=== PATIENT | male | born 1965 | race Caucasian/White ===

== ENCOUNTER 2017-07-03 23:55 | Inpatient (IN) ==
[2017-07-04] MEDS ORDERED: Tdap (Boostrix) Vaccine 0.5 ML SYRINGE IM ONE (00:03)
[2017-07-04] MEDS ORDERED: Cefepime HCl 2,000 MG in Water for inj. (sterile) 20 ML 20 ML IVP ONE (00:18)
[2017-07-04] MEDS ORDERED: 0.9 % Sodium Chloride 1,000 ML IVC SCH (00:30)
[2017-07-04] MEDS ORDERED: *HR* Etomidate 20 MG/10 ML AMPUL IVP ONE ×2 (00:35→10:16)
[2017-07-04] MEDS ORDERED: *HR* Rocuronium Bromide 50 MG/5 ML VIAL IVP ONE (00:35)
[2017-07-04 00:46] LABS: Basophils % 0.2 %; Eosinophils # 0.3 K/mcL (0.0-0.6); Eosinophils % 2.1 %; Hematocrit 36.8 % (37.5-50.1); Hemoglobin 12.1 g/dL (12.9-16.9); Immature Granulocytes % 0.4 % (0-4); Lymphocytes # 1.5 K/mcL (0.6-4.6); Lymphocytes % 11.9 %; Mean Corpuscular HGB Conc 32.9 g/dL (31.6-35.5); Mean Corpuscular Hemoglobin 28.3 pg (28.0-33.3); Mean Platelet Volume 10.4 fL (9.4-12.4); Monocytes # 0.9 K/mcL (0.0-1.3); Monocytes % 7.5 %; Neutrophils # 9.8 K/mcL (1.6-8.9); Platelet Count 207 K/mcL (140-400); Red Blood Count 4.28 M/mcL (4.19-5.50); Red Cell Distribution Width 14.3 % (11.5-14.5); Segmented Neutrophils % 77.9 %
[2017-07-04] MEDS ORDERED: Propofol 500 MG/50 ML INFUS..BTL IVC SCH (01:15)
--- NOTE | 2017-07-04 01:51 | Emergency Department Note ---
Disposition Clinical Impression: Opiate or related narcotic overdose Qualifiers: Encounter type: initial encounter Injury intent: accidental or unintentional Qualified Code(s): T40.601A - Poisoning by unspecified narcotics, accidental ( unintentional), initial encounter Altered mental status Qualifiers: Altered mental status type: coma Coma depth: unspecified coma depth Qualified Code(s): R40.20 - Unspecified coma Disposition: Admitted As Inpatient Condition: Critical General Adult HPI - General Chief complaint: ED Overdose Stated complaint: Overdose Time Seen by Provider: 07/04/17 00:00 Source: patient, EMS Mode of arrival: EMS Limitations: no limitations Nursing Notes Reviewed: Yes Vital Signs Reviewed: Yes - History of Present Illness HPI Narrative: This is just a procedure note for full history and physical please refer to Dr. Golden's note. This is a 51-year-old male who was seen earlier in the emergency department for suspected opiate overdose and was given Narcan. He is worked up for some excoriated lesions on his head as well and given antibiotics. Ultimately this evening he was found minimally responsive by EMS. He actually improved on the way to the hospital and on arrival he was responding and answering questions. His hemodynamics were stable. Shortly after his arrival he became unresponsive. His blood glucose was checked and was normal. His hemodynamics remained stable. He had desaturations with oxygen levels in the 70s. He required oxygen placement by nonrebreather mask. Ultimately he received 6 mg of Narcan and did not have any appreciable response. He was unresponsive with a GCS of 3. He was emergently intubated for airway protection and hypoxia. Pupils are 2 mm and reactive there are multiple excoriated lesions on the scalp with soft tissue swelling Trachea midline Abdomen is soft nontender Lungs are clear but diminished bilaterally Heart rate is tachycardic but regular Extremities are perfused with some excoriated lesions Patient is unresponsive not following commands Medical decision making This is a male patient who had decompensation with hypoxic respiratory failure requiring emergent intubation. He was given broad-spectrum antibiotics. I did consider lumbar puncture however the patient has multiple previous spinal surgeries and I think this would be better served by interventional radiology. He was started on propofol sedation but ultimately had some ensuing hypotension. He was fluid responsive. Poison control was contacted and has no further recommendations they will be following along. He did not respond to Narcan. Plan to admit to the intensive care unit for ventilatory management and further resuscitation. I spent greater than 70 minutes of critical care time on this critically ill patient suffering from hypoxic respiratory failure requiring intubation. This was excluding billable procedures. Pain Scale: 0 - Related Data Previous Rx's Medication Instructions Recorded Gabapentin [Neurontin] 800 mg PO BID #20 tablet 01/14/15 Hydrocodone/Acetaminophen [[place] 1 tab PO Q6H PRN #12 tab 03/28/15 5-325 Tablet] Tamsulosin [Flomax] 0.4 mg PO DAILY #5 capsule 03/28/15 Clindamycin [Cleocin] 300 mg PO BID #20 capsule 12/06/15 OxyCODONE/APAP 5/325 [Percocet 1 each PO Q8HR PRN #6 tablet 12/06/15 5/325 MG] OxyCODONE/APAP 5/325 [Percocet 2 each PO Q6HR PRN #15 tablet 01/15/16 5/325 MG] Gabapentin [Neurontin] 600 mg PO 1-2XD PRN #30 tablet 01/17/16 Sulfamethoxazole/Trimeth DS 1 each PO BID #28 tablet 04/03/16 [Bactrim DS] Clindamycin [Cleocin] 150 mg PO Q6HR 10 Days capsule 06/13/16 Ondansetron HCl [Zofran] 4 mg PO Q8HR PRN #15 tablet 06/13/16 Cephalexin [Keflex] 750 mg PO BID #20 capsule 08/18/16 Clindamycin HCl 300 mg PO BID #14 capsule 08/18/16 Mupirocin [Bactroban Oint] 22 appl TP BID #1 tube 08/18/16 Cephalexin [Keflex] 500 mg PO BID #20 capsule 07/03/17 Sulfamethoxazole/Trimeth DS 1 each PO BID #20 tablet 07/03/17 [Bactrim DS] Allergies Allergy/AdvReac Type Severity Reaction Status Date / Time Cyclobenzaprine Allergy Hives Verified 08/18/16 01:48 [From Flexeril] hydrocodone [From Vicodin] Allergy Hives Verified 08/18/16 01:48 ibuprofen [From Motrin] Allergy Hives Verified 08/18/16 01:48 ketorolac [From Toradol] Allergy Anaphylaxis Verified 08/18/16 01:48 NSAIDS (Non-Steroidal Allergy Anaphylaxis Verified 08/18/16 01:48 Anti-Inflamma Penicillins Allergy Rash Verified 08/18/16 01:48 tramadol Allergy Hives Verified 08/18/16 01:48 STEROIDS Allergy Flushing Uncoded 08/18/16 01:48 All systems ED: reviewed and negative except as stated. Past Medical History - Past Medical History Medical history: Reports: no medical history Surgical history: Reports: non-contributory, other Psychiatric history: Reports: anxiety, depression - Social History Smoking Status: Former smoker Smokeless Tobacco Status: No Alcohol use: Reports: none Drug use: Reports: none Physical Exam - General General appearance: appears intoxicated Course Vital Signs Temperature 98.8 F 07/04/17 00:07 Pulse Rate 92 07/04/17 00:07 Respiratory Rate 32 07/04/17 00:07 Blood Pressure 115/64 07/04/17 00:07 O2 Sat by Pulse Oximetry 92 07/04/17 00:07 Temperature 98.8 F 07/04/17 00:07 Pulse Rate 101 07/04/17 03:30 Respiratory Rate 16 07/04/17 03:30 Blood Pressure 138/61 07/04/17 03:30 O2 Sat by Pulse Oximetry 96 07/04/17 03:30 Oxygen Delivery Oxygen Delivery Ventilator Procedures - Intubation Time out performed: Yes sedative: Etomidate Mg Given: 20 paralytic: Rocuronium Mg Given: 70 Laryngoscope: fiber optic video scope ET Tube Size: 7.5 ET Tube Uncuffed: No Tube Secured Depth (cm): 24 Tube Secured Location: lips Tube Placement Confirmation: visualized tube passing through cords, equal breath sounds bilaterally, no breath sounds over epigastrium Patient Tolerated Procedure: well, no complications Intubation Complications: none Medical Decision Making - [facility] Narrative Medical decision making narrative: This is just a procedure note for full history and physical please refer to Dr. Golden's note - Lab Data Result diagrams: 07/04/17 00:32 07/04/17 02:24 Lab Results 07/04/17 07/04/17 07/04/17 Range/Units 00:32 00:46 02:00 WBC 12.6 H (4.3-11.1) K/mcL RBC 4.28 (4.19-5.50) M/mcL Hgb 12.1 L (12.9-16.9) g/dL Hct 36.8 L (37.5-50.1) % MCV 86.0 (83.0-100.0) fL MCH 28.3 (28.0-33.3) pg MCHC 32.9 (31.6-35.5) g/dL RDW 14.3 (11.5-14.5) % Plt Count 207 (140-400) K/mcL MPV 10.4 (9.4-12.4) fL Immature Gran % 0.4 (0-4) % Seg Neutrophils % 77.9 % Lymphocytes % 11.9 % Monocytes % 7.5 % Eosinophils % 2.1 % Basophils % 0.2 % Neutrophils # 9.8 H (1.6-8.9) K/mcL Lymphocytes # 1.5 (0.6-4.6) K/mcL Monocytes # 0.9 (0.0-1.3) K/mcL Eosinophils # 0.3 (0.0-0.6) K/mcL Basophils # 0.0 (0.0-0.2) K/mcL Sodium (136-145) mEq/L Potassium (3.5-5.1) mEq/L Chloride (98-107) mEq/L Carbon Dioxide (23-29) mEq/L BUN (6-20) mg/dL Creatinine (0.70-1.30) mg/dL Est GFR ( Amer) (> 60) Est GFR (Non-Af Amer) (> 60) BUN/Creatinine Ratio (6-26) Glucose (70-105) mg/dL Calculated Osmolality (280-300) Lactic Acid (0.5-2.2) mmol/L Calcium (8.6-10.3) mg/dL Total Bilirubin (0.3-1.0) mg/dL AST (13-39) Units/L ALT (7-52) Units/L Alkaline Phosphatase (34-104) Units/L Ammonia (16-53) mcmol/L Serum Total Protein (6.4-8.9) g/dL Albumin (3.5-5.7) g/dL Globulin (2.4-3.5) g/dL Albumin/Globulin Ratio (1.1-2.2) TSH (0.340-5.600) mcIU/mL Urine Color Yellow (Yellow) Urine Clarity Clear (Clear) Urine pH 5.5 (5.0-8.0) pH Units Ur Specific [place] > 1.030 H (1.010-1.025) Urine Protein 30 H (Neg-Trace) mg/dL Urine Glucose (UA) Normal (Normal) mg/dL Urine Ketones Negative (Negative) mg/dL Urine Blood Trace H (Negative) Urine Nitrite Negative (Negative) Urine Bilirubin Negative (Negative) Urine Urobilinogen Normal (Normal) mg/dL Ur Leukocyte Esterase Negative (Negative) Urine Microscopic RBC 0-3 (0-3) per hpf Urine Microscopic WBC 3-5 H (0-3) per hpf Ur Squamous Epith Cells Many H (None-Few) per lpf Urine Bacteria None Seen (None-Few) per hpf Hyaline Casts Few (None-Few) per lpf Granular Casts Few H (None Seen) per lpf Ur Culture Indicated? NO (NO) Urine Opiates Screen (Ajgzlm=629) ng/mL Ur Barbiturates Screen (Ognhbc=029) ng/mL Ur Phencyclidine Scrn (Cutoff=25) ng/mL Ur Amphetamines Screen (Ofwigp=1595) ng/mL U Benzodiazepines Scrn (Vvethm=082) ng/mL Urine Cocaine Screen (Cutoff= 300) ng/mL U Marijuana (THC) Screen (Cutoff = 50) ng/mL Specimen Rejected Hemolyzed 07/04/17 07/04/17 07/04/17 Range/Units 02:00 02:24 02:24 WBC (4.3-11.1) K/mcL RBC (4.19-5.50) M/mcL Hgb (12.9-16.9) g/dL Hct (37.5-50.1) % MCV (83.0-100.0) fL MCH (28.0-33.3) pg MCHC (31.6-35.5) g/dL RDW (11.5-14.5) % Plt Count (140-400) K/mcL MPV (9.4-12.4) fL Immature Gran % (0-4) % Seg Neutrophils % % Lymphocytes % % Monocytes % % Eosinophils % % Basophils % % Neutrophils # (1.6-8.9) K/mcL Lymphocytes # (0.6-4.6) K/mcL Monocytes # (0.0-1.3) K/mcL Eosinophils # (0.0-0.6) K/mcL Basophils # (0.0-0.2) K/mcL Sodium (136-145) mEq/L Potassium (3.5-5.1) mEq/L Chloride (98-107) mEq/L Carbon Dioxide (23-29) mEq/L BUN (6-20) mg/dL Creatinine (0.70-1.30) mg/dL Est GFR ( Amer) (> 60) Est GFR (Non-Af Amer) (> 60) BUN/Creatinine Ratio (6-26) Glucose (70-105) mg/dL Calculated Osmolality (280-300) Lactic Acid 1.1 (0.5-2.2) mmol/L Calcium (8.6-10.3) mg/dL Total Bilirubin (0.3-1.0) mg/dL AST (13-39) Units/L ALT (7-52) Units/L Alkaline Phosphatase (34-104) Units/L Ammonia 35 (16-53) mcmol/L Serum Total Protein (6.4-8.9) g/dL Albumin (3.5-5.7) g/dL Globulin (2.4-3.5) g/dL Albumin/Globulin Ratio (1.1-2.2) TSH (0.340-5.600) mcIU/mL Urine Color (Yellow) Urine Clarity (Clear) Urine pH (5.0-8.0) pH Units Ur Specific [place] (1.010-1.025) Urine Protein (Neg-Trace) mg/dL Urine Glucose (UA) (Normal) mg/dL Urine Ketones (Negative) mg/dL Urine Blood (Negative) Urine Nitrite (Negative) Urine Bilirubin (Negative) Urine Urobilinogen (Normal) mg/dL Ur Leukocyte Esterase (Negative) Urine Microscopic RBC (0-3) per hpf Urine Microscopic WBC (0-3) per hpf Ur Squamous Epith Cells (None-Few) per lpf Urine Bacteria (None-Few) per hpf Hyaline Casts (None-Few) per lpf Granular Casts (None Seen) per lpf Ur Culture Indicated? (NO) Urine Opiates Screen Positive H (Fjoqyl=093) ng/mL Ur Barbiturates Screen Negative (Alymrm=950) ng/mL Ur Phencyclidine Scrn Negative (Cutoff=25) ng/mL Ur Amphetamines Screen Negative (Gwozqc=4368) ng/mL U Benzodiazepines Scrn Negative (Ccajwf=194) ng/mL Urine Cocaine Screen Negative (Cutoff= 300) ng/mL U Marijuana (THC) Screen Negative (Cutoff = 50) ng/mL Specimen Rejected 07/04/17 Range/Units 02:24 WBC (4.3-11.1) K/mcL RBC (4.19-5.50) M/mcL Hgb (12.9-16.9) g/dL Hct (37.5-50.1) % MCV (83.0-100.0) fL MCH (28.0-33.3) pg MCHC (31.6-35.5) g/dL RDW (11.5-14.5) % Plt Count (140-400) K/mcL MPV (9.4-12.4) fL Immature Gran % (0-4) % Seg Neutrophils % % Lymphocytes % % Monocytes % % Eosinophils % % Basophils % % Neutrophils # (1.6-8.9) K/mcL Lymphocytes # (0.6-4.6) K/mcL Monocytes # (0.0-1.3) K/mcL Eosinophils # (0.0-0.6) K/mcL Basophils # (0.0-0.2) K/mcL Sodium 138 (136-145) mEq/L Potassium 3.5 (3.5-5.1) mEq/L Chloride 107 (98-107) mEq/L Carbon Dioxide 25 (23-29) mEq/L BUN 14 (6-20) mg/dL Creatinine 1.25 (0.70-1.30) mg/dL Est GFR ( Amer) > 60 (> 60) Est GFR (Non-Af Amer) > 60 (> 60) BUN/Creatinine Ratio 11 (6-26) Glucose 144 H (70-105) mg/dL Calculated Osmolality 289 (280-300) Lactic Acid (0.5-2.2) mmol/L Calcium 7.8 L (8.6-10.3) mg/dL Total Bilirubin 0.8 (0.3-1.0) mg/dL AST 29 (13-39) Units/L ALT 25 (7-52) Units/L Alkaline Phosphatase 47 (34-104) Units/L Ammonia (16-53) mcmol/L Serum Total Protein 5.5 L (6.4-8.9) g/dL Albumin 3.1 L (3.5-5.7) g/dL Globulin 2.4 (2.4-3.5) g/dL Albumin/Globulin Ratio 1.3 (1.1-2.2) TSH 0.481 (0.340-5.600) mcIU/mL Urine Color (Yellow) Urine Clarity (Clear) Urine pH (5.0-8.0) pH Units Ur Specific [place] (1.010-1.025) Urine Protein (Neg-Trace) mg/dL Urine Glucose (UA) (Normal) mg/dL Urine Ketones (Negative) mg/dL Urine Blood (Negative) Urine Nitrite (Negative) Urine Bilirubin (Negative) Urine Urobilinogen (Normal) mg/dL Ur Leukocyte Esterase (Negative) Urine Microscopic RBC (0-3) per hpf Urine Microscopic WBC (0-3) per hpf Ur Squamous Epith Cells (None-Few) per lpf Urine Bacteria (None-Few) per hpf Hyaline Casts (None-Few) per lpf Granular Casts (None Seen) per lpf Ur Culture Indicated? (NO) Urine Opiates Screen (Jlkeys=708) ng/mL Ur Barbiturates Screen (Slbnpi=766) ng/mL Ur Phencyclidine Scrn (Cutoff=25) ng/mL Ur Amphetamines Screen (Dsjkoq=2280) ng/mL U Benzodiazepines Scrn (Wrnllw=828) ng/mL Urine Cocaine Screen (Cutoff= 300) ng/mL U Marijuana (THC) Screen (Cutoff = 50) ng/mL Specimen Rejected
[2017-07-04] MEDS ORDERED: Naloxone 0.4 MG/ML INJ IVP PRN ×2 (02:08→14:54)
[2017-07-04 02:10] LABS: Bilirubin,Urine Negative (Negative); Blood,Urine Trace (Negative); Clarity,Urine Clear (Clear); Color,Urine Yellow (Yellow); Glucose,Urine (UA) Normal (Normal); Ketones,Urine Negative (Negative); Leukocyte Esterase,Urine Negative (Negative); Nitrite,Urine Negative (Negative); PH,Urine 5.5 pH Units (5.0-8.0); Protein,Urine 30 mg/dL (Neg-Trace); Specific Gravity,Urine > 1.030 (1.010-1.025); Urobilinogen,Urine Normal (Normal)
[2017-07-04 02:12] LABS: Bacteria,Urine None Seen per hpf (None-Few); RBC,Urine 0-3 per hpf (0-3); Squamous Epithelial Cell,Urine Many per lpf (None-Few)
[2017-07-04 02:14] LABS: Amphetamine Screen,Urine Negative ng/mL (Cutoff=1000); Barbiturate Screen,Urine Negative ng/mL (Cutoff=200); Benzodiazepines Screen,Urine Negative ng/mL (Cutoff=200); Cannabinoid Screen,Urine Negative ng/mL (Cutoff = 50); Cocaine Screen,Urine Negative ng/mL (Cutoff= 300); Opiate Screen,Urine Positive ng/mL (Cutoff=300); Phencyclidine Screen,Urine Negative ng/mL (Cutoff=25)
[2017-07-04] MEDS ORDERED: Lacri-Lube 3.5 GM TUBE BOTH EYES PRN (02:15)
[2017-07-04 02:20] LABS: Hyaline Casts,Urine Few per lpf (None-Few)
[2017-07-04] MEDS: 0.9 % Sodium Chloride 1,000 ML IVC SCH ×2 (02:25→04:22)
[2017-07-04 02:26] LABS: Granular Casts,Urine Few per lpf (None Seen)
--- NOTE | 2017-07-04 02:26 | Internal Med History&Physical ---
Date of Encounter: 07/04/17 Time of Encounter: : Assessment and Plan (1) Encephalopathy acute Current visit: Yes Status: Acute etiology uncertain but GCS poor needing emergent intubation in the ED - consult pulm as patient going to ICU doubt overdose D/w ED, will empirically treat for meningitis with IV vanc, cipro (allergy to PCN) Pending review of further ED testing with [facility] Had prior back surgery and question hardware ?? - consult IR for LP check TSH screen (2) Cellulitis Current visit: Yes Status: Acute empiric IV antibiotics above Qualifiers: Site of cellulitis: head Qualified Code(s): L03.811 - Cellulitis of head [ any part, except face] (3) Chronic back pain Current visit: Yes Status: Acute baseline on 10mg perc 5 x daily at home Qualifiers: Back pain location: low back pain Qualified Code(s): M54.40 - Lumbago with sciatica, unspecified side; G89.29 - Other chronic pain; G89.29 - Other chronic pain Internal Medicine - H&P: HPI Chief complaint: AMS History of present illness: Mr. Burch is a 51-year-old male who presents to the ER will with mental status change worsening GCS and was intubated in the ER due to low GCS of 3. Review of medical records suggested that he was seen in the ER in the morning with symptoms of confusion, speaking erratically since yesterday morning. His mental status was thought to have improved with Narcan. Further observation this morning demonstrated stability and was sent home on Bactrim and Keflex combination for CT findings of right external ear cellulitis. Sinced being discharged home, his girlfriend noticed progressive confusion, encephalopathy, had difficulty walking, falling to the ground. Of note he was recently in [facility] for 22 days and was recently discharged on July 01. He has a history of chronic back pain and uses Percocet 10 up to 5 times a day, Zanaflex, Neurontin. His girlfriend also reported history of difficulty urinating where he takes sildenafil which helps. Prior to presentaton today, he was being treated for an infection of his scalp with clindamycin, secondary to patient "picking" at it. CT/CT soft tissue neck w con IMPRESSION: Diffuse cellulitis centered posterior to the right external auditory canal. No focal drainable fluid collection noted. 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 In a high-risk patient, optional CT at 12 months. - Low risk patients include individuals with minimal or absent history of smoking and other known risk factors. - High risk patients include individuals with a history or smoking or known risk factors. Radiology 2017 http://pubs.rsna.org/doi/full/10.1148/radiol.[email or web address] CT/CT head/brain wo con IMPRESSION: 1. No acute intracranial abnormality. 2. Left parietal scalp swelling near the vertex. XR/XR chest 1V portable IMPRESSION: No acute process. Past Med Surg Social Fam HX - Past Medical History Medical history: no medical history Psychiatric history: anxiety, depression - Past Surgical History Surgical History: non-contributory, other - Social History Smoking Status: Former smoker Smokeless Tobacco Status: No Alcohol use: none Drug use: none Internal Medicine - H&P: Meds Gabapentin [Neurontin] 800 mg PO BID #20 tablet 01/14/15 [Rx] Hydrocodone/Acetaminophen [[place] 5-325 Tablet] 1 tab PO Q6H PRN #12 tab [Rx] Tamsulosin [Flomax] 0.4 mg PO DAILY #5 capsule 03/28/15 [Rx] Clindamycin [Cleocin] 300 mg PO BID #20 capsule 12/06/15 [Rx] OxyCODONE/APAP 5/325 [Percocet 5/325 MG] 1 each PO Q8HR PRN #6 tablet 12/06/15 [ Rx] OxyCODONE/APAP 5/325 [Percocet 5/325 MG] 2 each PO Q6HR PRN #15 tablet 01/15/16 [Rx] Gabapentin [Neurontin] 600 mg PO 1-2XD PRN #30 tablet 01/17/16 [Rx] Sulfamethoxazole/Trimeth DS [Bactrim DS] 1 each PO BID #28 tablet 04/03/16 [Rx] Clindamycin [Cleocin] 150 mg PO Q6HR 10 Days capsule 06/13/16 [Rx] Ondansetron HCl [Zofran] 4 mg PO Q8HR PRN #15 tablet 06/13/16 [Rx] Cephalexin [Keflex] 750 mg PO BID #20 capsule 08/18/16 [Rx] Clindamycin HCl 300 mg PO BID #14 capsule 08/18/16 [Rx] Mupirocin [Bactroban Oint] 22 appl TP BID #1 tube 08/18/16 [Rx] Cephalexin [Keflex] 500 mg PO BID #20 capsule 07/03/17 [Rx] Sulfamethoxazole/Trimeth DS [Bactrim DS] 1 each PO BID #20 tablet 07/03/17 [Rx] 3 Allergy/AdvReac Type Severity Reaction Status Date / Time Cyclobenzaprine Allergy Hives Verified 08/18/16 01:48 [From Flexeril] hydrocodone [From Vicodin] Allergy Hives Verified 08/18/16 01:48 ibuprofen [From Motrin] Allergy Hives Verified 08/18/16 01:48 ketorolac [From Toradol] Allergy Anaphylaxis Verified 08/18/16 01:48 NSAIDS (Non-Steroidal Allergy Anaphylaxis Verified 08/18/16 01:48 Anti-Inflamma Penicillins Allergy Rash Verified 08/18/16 01:48 tramadol Allergy Hives Verified 08/18/16 01:48 STEROIDS Allergy Flushing Uncoded 08/18/16 01:48 All Systems PM: A 10-system review of systems was performed and is negative for pertinent findings except as documented above in the HPI. Review of systems: ROS 14 point review of systems reviewed as best as possible given presentation. Pertinent positive or negative as per HPI or otherwise reviewed as negative - Constitutional Vitals: Temp Pulse Resp BP Pulse Ox 98.8 F 89 16 82/41 96 07/04/17 00:07 07/04/17 02:17 07/04/17 02:17 07/04/17 02:17 07/04/17 02:17 Exam: General - Intubated, sedated Psych - No agitation due to sedated/intubated state Eyes - Pupil sluggish to light. Constricted but not pinpoint. Eye lids intact. No scleral icterus Neuro - Difficult due to intubation Heart - Sinus. RRR. S1 and S2 present. No added HS/murmurs appreciated. No elevated JVD appreciated. Lung - Adequate air entry b/l, No crackles/wheezes appreciated GI - Soft, non-tender. No hepatosplenomegaly/ascites. BS+ - No CVA/suprapubic tenderness or palpable bladder distension Internal Med - H&P Results - Labs CBC & Chem 7: 07/04/17 00:32 Labs: Short CBC 07/04/17 Range/Units 00:32 WBC 12.6 H (4.3-11.1) K/mcL Hgb 12.1 L (12.9-16.9) g/dL Hct 36.8 L (37.5-50.1) % Plt Count 207 (140-400) K/mcL Neutrophils # 9.8 H (1.6-8.9) K/mcL Urine 07/04/17 Range/Units 02:00 Urine Color Yellow (Yellow) Urine Clarity Clear (Clear) Urine pH 5.5 (5.0-8.0) pH Units Ur Specific [place] > 1.030 H (1.010-1.025) Urine Protein 30 H (Neg-Trace) mg/dL Urine Glucose (UA) Normal (Normal) mg/dL - Impressions ITS Impressions Head CT 07/04/17 00:06 IMPRESSION: Progressive scalp soft tissue swelling. Otherwise no change. No acute intracranial abnormality. D/ / Sarkis Victoria MD / Sarkis Victoria MD Interpreting Provider: Sarkis Victoria MD
[2017-07-04] MEDS ORDERED: FentaNYL (PF) 1,000 MCG in 0.9 % Sodium Chloride 80 ML IVC SCH (03:00)
[2017-07-04] MEDS ORDERED: Vancomycin 0 MG in 0.9 % Sodium Chloride 250 ML IVPB SCH (03:00)
[2017-07-04 03:01] LABS: Alanine Aminotransferase 25 Units/L (7-52); Albumin 3.1 g/dL (3.5-5.7); Albumin/Globulin Ratio 1.3 (1.1-2.2); Alkaline Phosphatase 47 Units/L (34-104); Aspartate Amino Transferase 29 Units/L (13-39); BUN/Creatinine Ratio 11 (6-26); Bilirubin,Total 0.8 mg/dL (0.3-1.0); Blood Urea Nitrogen 14 mg/dL (6-20); Calcium 7.8 mg/dL (8.6-10.3); Carbon Dioxide 25 mEq/L (23-29); Chloride 107 mEq/L (98-107); Globulin 2.4 g/dL (2.4-3.5); Glucose 144 mg/dL (70-105); Osmolality,Calculated 289 (280-300); Potassium 3.5 mEq/L (3.5-5.1); Sodium 138 mEq/L (136-145); Total Protein 5.5 g/dL (6.4-8.9); eGFR For African Americans > 60 (> 60); eGFR For Non-African Americans > 60 (> 60)
[2017-07-04 03:14] LABS: Thyroid Stimulating Hormone 0.481 mcIU/mL (0.340-5.600)
[2017-07-04] MEDS ORDERED: Famotidine 20 MG/2 ML VIAL IVP SCH ×2 (04:15→06:00)
[2017-07-04] MEDS ORDERED: *HR* EPINEPHrine 1 MG/ML AMPUL IM ONE (04:21)
--- NOTE | 2017-07-04 04:27 | Event Note ---
Date of Encounter: 07/04/17 Time of Encounter: 04:25 Developing hives around abdo/back. Could be reaction to cephalosporin received prior to ICU transfer. Ordered H2 jad, a dose of solumedrol and epipen Updated radiology - D/w ED who has pulled ETT back 3 cm. Will order repeat CXR to check ETT positioning CT/CT thoracic spine wo con IMPRESSION: Unremarkable CT of the thoracic spine. CT/CT lumbar spine wo con IMPRESSION: Postoperative and degenerative changes with no evidence for fracture. CT/CT cervical spine wo con IMPRESSION: No acute abnormality of the cervical spine. CT/CT angio abdomen pelvis IMPRESSION: 1. No acute traumatic abnormality. 2. Right mainstem intubation. The endotracheal tube should be pulled back 3 cm. 3. Possible acute cholecystitis. CT/CT head/brain wo con IMPRESSION: Progressive scalp soft tissue swelling. Otherwise no change. No acute intracranial abnormality.
[2017-07-04] MEDS ORDERED: MethylPREDNISolone 40 MG/ML VIAL IVP ONE (04:30)
[2017-07-04] MEDS: Lacri-Lube 3.5 GM TUBE BOTH EYES SCH ×3 (04:58→12:53)
[2017-07-04 05:39] LABS: INR 1.1; Prothrombin Time 11.9 Seconds (9.4-12.1)
[2017-07-04 05:40] LABS: Acetaminophen < 1.0 mcg/mL (10-30); Ethanol < 10 mg/dL (0-10); Salicylate < 5.0 mg/dL (15.0-30.0)
[2017-07-04 05:42] LABS: Activated Partial Thrombo Time 30.2 Seconds (26.0-36.0)
[2017-07-04] MEDS ORDERED: *HR* Enoxaparin 40 MG/0.4 ML SYRINGE SQ SCH (06:00)
[2017-07-04] MEDS ORDERED: Dexmedetomidine HCl 400 MCG/100 ML MLS IVC ONE (08:10)
[2017-07-04] MEDS ORDERED: Dexmedetomidine HCl 400 MCG/100 ML MLS IVC SCH (08:15)
[2017-07-04] MEDS ORDERED: Chlorhexidine Rinse 15 ML MOUTHWASH MM SCH (09:00)
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
[2017-07-04] MEDS ORDERED: *HR* Rocuronium Bromide 100 MG/10 ML VIAL IVC ONE (10:16)
--- NOTE | 2017-07-04 12:00 | Neurology - Consult Note ---
Date of Encounter: 07/04/17 Time of Encounter: 11:58 Assessment and Plan (1) Encephalopathy acute Current Visit: Yes Status: Acute This patient was admitted earlier. Mental status changes now he is extubated alert and awake able to follow commands at the same time able to have conversation no focal motor neurological deficit noted on his examination. At the same time no evidence of any meningeal signs and particularly no sign of kerrnegie's or Brudzinski on exam. CT scan of the head did show some scalp swelling but no evidence of any intracranial abnormality. On the clinical basis he does not seem to have any sign of meningismus. Mental status changes has been resolved I suspect it was related to underlying encephalopathy perhaps overdose. Clinically he is a stable now if he started having mental status changes perhaps he may need CSF analysis at that time. At the moment recommend continue to monitor him broad-spectrum antibiotics for his soft tissue infection that he had and behind his right ear. Other treatment is as per primary team. Patient should be watched for any withdrawal symptoms. He has an history of chronic back problem for which she has been on pain medication perhaps he may need pain management as an outpatient basis History of Present Illness HPI: Mr. Burch is a 51 year old male who presents to the ER will with mental status change , was intubated in the ER due to low GCS of 3. now extubated, Review of medical records suggested that he was seen in the ER in the morning with symptoms of confusion, speaking erratically since yesterday morning. His mental status was thought to have improved with Narcan. Further observation this morning demonstrated stability and was sent home on Bactrim and Keflex combination for CT findings of right external ear cellulitis. after he was discharged home, his girlfriend noticed progressive confusion, difficulty walking, falling to the ground. Of note he was recently in [facility] for 22 days and was recently discharged on July 01. He has a history of chronic back pain and uses Percocet 10 up to 5 times a day, Zanaflex, Neurontin. His girlfriend also reported history of difficulty urinating where he takes sildenafil which helps. Prior to presentaton today, he was being treated for an infection of his scalp with clindamycin, Past Med Surg Social Fam HX - Past Medical History Medical history: no medical history Psychiatric history: anxiety, depression - Past Surgical History Surgical History: non-contributory, other - Social History Smoking Status: Former smoker Smokeless Tobacco Status: No Alcohol use: none Drug use: none Medications and Allergies Acetaminophen [Tylenol Arthritis] 650 mg PO Q4-6H PRN 07/04/17 [History] Clindamycin HCl [Clindamycin HCl] 150 mg PO QID 07/04/17 [History] Gabapentin [Neurontin] 800 mg PO TID 07/04/17 [History] Loperamide [Imodium] 2 mg PO DAILY PRN 07/04/17 [History] OxyCODONE Immed Rel [Roxicodone 10 MG] 10 mg PO Q4H PRN 07/04/17 [History] Sildenafil Citrate [Revatio] 20 mg PO TID 07/04/17 [History] Tizanidine HCl [Tizanidine HCl] 4 mg PO TID PRN 07/04/17 [History] 3 Allergy/AdvReac Type Severity Reaction Status Date / Time Cyclobenzaprine Allergy Hives Verified 08/18/16 01:48 [From Flexeril] hydrocodone [From Vicodin] Allergy Hives Verified 08/18/16 01:48 ibuprofen [From Motrin] Allergy Hives Verified 08/18/16 01:48 ketorolac [From Toradol] Allergy Anaphylaxis Verified 08/18/16 01:48 NSAIDS (Non-Steroidal Allergy Anaphylaxis Verified 08/18/16 01:48 Anti-Inflamma Penicillins Allergy Rash Verified 08/18/16 01:48 tramadol Allergy Hives Verified 08/18/16 01:48 STEROIDS Allergy Flushing Uncoded 08/18/16 01:48 All Systems: The remainder of the systems were reviewed and are negative Physical Examination - Vital Signs Vital Signs: Initial Vital Signs Temp Pulse Resp BP Pulse Ox 98.8 F 92 32 115/64 92 07/04/17 00:07 07/04/17 00:07 07/04/17 00:07 07/04/17 00:07 07/04/17 00:07 - Exam Exam: GENERAL: Comfortable in no acute distress HEENT: Normal LUNGS: CTA HEART: RRR, S1 S2 Audible, no murmur EXTREMITIES: No Pedal edema. DETAILED NEUROLOGICAL EXAMINATION: MENTAL STATUS: Oriented to person, place, date and situation. Memory: knows the President, Aware of recent events Recent Memory Intact Cranial Nerve Examination: CN - II: Visual Acuity, Field of Vision Normal, Fundus examination: No disk edema, Pupils- size shape reaction to light and accommodation: All normal. CN III, IV, : External ocular movements were intact, Pupils were reactive, Nodrooping of the eyelids CN V: Sensation over the face to light touch and pinprick all normal. Corneal reflexes not tested, jaw jerk normal. CN VII: No facial asymmetry, no flattening of nasolabial folds, no difficulty in closing the eyes, no loss of forehead wrinkles, no difficulty in eye-closure, frowning raising eyebrows. CNVIII: No significant hearing loss CN IX, X: Uvula centralized not deviated, Gag reflex: Not tested CN X1: Sternocleidomastoid, trapezius, normal or evidence of any weakness. CN X11: No Dysarthria, no wasting or fibrilation f tongue muscles, no deviation, tongue muscle strength normal. Motor examination: No hypertrophy, tone was normal, power grade 0-5 Upper limbs Proximal- No difficulty in lifting the arms above the head. Distal- Noweakness in distal muscles On formal testing 5/5 all over Lower limbs Proximal- No difficulty in getting up from the sitting position Distal- No difficulty in walking On formal testing 5/5 all over Coordination: [id number] normal. Target pursuit normal finger tapping normal, Rapid alternating moment of wrist normal Sensory system: Superficial sensations- Touch normal. Pain- Pinprick, Temperature all normal, Deep sensation normal, Joint position sense normal. Cortical sensation, Tactile discrimination, localization and extinction all normal. Deep tendon reflexes. Symmetrical bilateral, No evidence of Babinski. No sign of meningeal irritation Gait Examination: Deferred - Constitutional General appearance: comfortable, other (GENERAL: Comfortable in no acute distress) - Neurologic Detailed motor examination: other Results - Laboratory Findings CBC and BMP: 07/04/17 00:32 07/04/17 02:24 Abnormal lab findings: Abnormal lab results WBC 12.6 K/mcL (4.3-11.1) H 07/04/17 00:32 Hgb 12.1 g/dL (12.9-16.9) L 07/04/17 00:32 Hct 36.8 % (37.5-50.1) L 07/04/17 00:32 Neutrophils # 9.8 K/mcL (1.6-8.9) H 07/04/17 00:32 Glucose 144 mg/dL (70-105) H 07/04/17 02:24 Calcium 7.8 mg/dL (8.6-10.3) L 07/04/17 02:24 Serum Total Protein 5.5 g/dL (6.4-8.9) L 07/04/17 02:24 Albumin 3.1 g/dL (3.5-5.7) L 07/04/17 02:24 Ur Specific [place] > 1.030 (1.010-1.025) H 07/04/17 02:00 Urine Protein 30 mg/dL (Neg-Trace) H 07/04/17 02:00 Urine Blood Trace (Negative) H 07/04/17 02:00 Urine Microscopic WBC 3-5 per hpf (0-3) H 07/04/17 02:00 Ur Squamous Epith Cells Many per lpf (None-Few) H 07/04/17 02:00 Granular Casts Few per lpf (None Seen) H 07/04/17 02:00 Salicylates < 5.0 mg/dL (15.0-30.0) L 07/04/17 05:17 Urine Opiates Screen Positive ng/mL (Oqaiza=756) H 07/04/17 02:00 Acetaminophen < 1.0 mcg/mL (10-30) L 07/04/17 05:17 Consult Discharge Plan - Plan Referrals: NONE,PCP [Primary Care Provider] -
[2017-07-04] MEDS ORDERED: *HR* OxyCODONE Immed Rel 5 MG TABLET PO PRN (14:11)
[2017-07-04] MEDS ORDERED: tiZANidine 4 MG TABLET PO PRN ×2 (14:11→14:54)
[2017-07-04] MEDS ORDERED: NON-FORMULARY MEDICATION 1 EACH EACH (Oxycodone Immed Rel 10 MG) PO PRN (14:54)
[2017-07-04] MEDS ORDERED: NON-FORMULARY MEDICATION 1 EACH EACH (Gabapentin [Neurontin] 800 MG) PO SCH (15:00)
[2017-07-04] MEDS ORDERED: Sildenafil Citrate 20 MG TABLET PO SCH (15:00)
[2017-07-04] MEDS ORDERED: Gabapentin 400 MG CAPSULE PO SCH (15:00)
[2017-07-04] MEDS: Gabapentin 400 MG CAPSULE PO SCH ×2 (15:17→19:58)
[2017-07-04] MEDS: Sildenafil Citrate 20 MG TABLET PO SCH ×2 (15:19→19:59)
--- NOTE | 2017-07-04 15:27 | Electrocardiograph Report ---
[place] [id number] Test Date: 2017-07-04 Pat Name: Carin Burch Department: 102 Room: 06 Gender: M [employer]ope [employer] Operator: Bird : 1965 Requested By: Tirso Golden Order Number: [id number] Reading MD: Walt Drake DO Measurements Intervals [place] Rate: 91 P: 75 NC: 133 QRS: -57 QRSD: 109 T: 45 QT: 318 QTc: 367 Interpretive Statements SINUS RHYTHM MARKED LEFT AXIS DEVIATION Electronically Signed On 07-04-2017 15:25:47 EDT by Walt Drake DO
[2017-07-04] MEDS: tiZANidine 4 MG TABLET PO PRN (16:27)
[2017-07-05] MEDS: *HR* OxyCODONE Immed Rel 5 MG TABLET PO PRN ×4 (01:38→19:27)
[2017-07-05] MEDS ORDERED: Acetaminophen 325 MG TABLET PO ONE (05:29)
[2017-07-05] MEDS: *HR* Enoxaparin 40 MG/0.4 ML SYRINGE SQ SCH (06:21)
[2017-07-05 07:32] LABS: Basophils % 0.1 %; Eosinophils % 0.1 %; Hematocrit 39.3 % (37.5-50.1); Hemoglobin 12.5 g/dL (12.9-16.9); Immature Granulocytes % 0.9 % (0-4); Lymphocytes # 0.9 K/mcL (0.6-4.6); Lymphocytes % 6.1 %; Mean Corpuscular HGB Conc 31.8 g/dL (31.6-35.5); Mean Corpuscular Volume 87.9 fL (83.0-100.0); Monocytes % 6.8 %; Neutrophils # 13.2 K/mcL (1.6-8.9); Platelet Count 215 K/mcL (140-400); Red Blood Count 4.47 M/mcL (4.19-5.50); Red Cell Distribution Width 14.5 % (11.5-14.5)
[2017-07-05] MEDS: Gabapentin 400 MG CAPSULE PO SCH ×3 (07:53→20:02)
[2017-07-05] MEDS: Sildenafil Citrate 20 MG TABLET PO SCH ×3 (07:53→20:02)
[2017-07-05 12:37] LABS: BUN/Creatinine Ratio 14 (6-26); Blood Urea Nitrogen 10 mg/dL (6-20); Calcium 8.9 mg/dL (8.6-10.3); Carbon Dioxide 28 mEq/L (23-29); Chloride 105 mEq/L (98-107); Glucose 182 mg/dL (70-105); Osmolality,Calculated 290 (280-300); Sodium 138 mEq/L (136-145); eGFR For African Americans > 60 (> 60); eGFR For Non-African Americans > 60 (> 60)
--- NOTE | 2017-07-05 14:24 | Internal Med Progress Note ---
Date of Encounter: 07/05/17 Time of Encounter: 14:23 - Assessment and plan (1) Cellulitis Current Visit: Yes Status: Acute Assessment and plan: Continue with IV vancomycin. Dose by levels. Monitor levels first toxicity. High risk for morbidity and complications. Qualifiers: Site of cellulitis: head Qualified Code(s): L03.811 - Cellulitis of head [ any part, except face] (2) Encephalopathy acute Current Visit: Yes Status: Acute Assessment and plan: Likely secondary to a combination of resuming a daily dose of 60 mg oxycodone daily after. Of opiate abstinence in addition to Zanaflex and gabapentin. Pain appears to be adequately controlled with 10 mg oxycodone every 6 hours at this point. Patient is very insistent that he would like to increase to his home dose of 10 mg every 4 hours. I explained the high potential for harm and therefore we will continue with the current dose and only slowly increased dose as tolerated if needed. Continue with ceftriaxone and gabapentin as per her is home medication regimen. (3) Opiate or related narcotic overdose Current Visit: Yes Status: Suspected Assessment and plan: Patient's mental status is back to baseline. I do suspect accidental medication overdose that caused acute metabolic and toxic encephalopathy now significantly improved. I will continue to patent counsel patient regarding potential adverse effects of his prescribed medication and emphasize correct dosing. Qualifiers: Encounter type: initial encounter Injury intent: accidental or unintentional Qualified Code(s): T40.601A - Poisoning by unspecified narcotics , accidental (unintentional), initial encounter (4) Hypoxemia Current Visit: Yes Status: Resolved Assessment and plan: Likely secondary to central hypoventilation due to encephalopathy. Now resolved. - Subjective Interval history: Patient was admitted 2 days ago when he presented to the hospital with altered mental status. He was hypoxic. He was emergently intubated and transferred to the ICU. He was extubated yesterday and his mental status has improved. Patient reports severe sharp lower back pain which is chronic. He states that he takes oxycodone 10 mg 6 times daily at home. She does tell me that he was recently incarcerated and during the period of incarceration of 30 days he was not given any oxycodone. After returning home he started taking his oxycodone as before, 6 times daily which he said had his pain under control. Additionally he resumed his Zanaflex and gabapentin per previous regimen. - Constitutional Vitals: Temp Pulse Resp BP Pulse Ox 98.2 F 95 18 137/73 98 07/05/17 12:13 07/05/17 12:13 07/05/17 12:13 07/05/17 12:13 07/05/17 12:13 General appearance: Present: A&O X 3, no acute distress, answers questions appropriately - Respiratory Respiratory exam: Present: CTAB. Absent: accessory muscle use, rales, rhonchi, wheezes - Cardiovascular Cardiovascular exam: Present: RRR, +S1, +S2. Absent: diastolic murmur, gallop, rubs, systolic murmur - GI/Abdominal GI/Abdominal exam: Present: normal bowel sounds, soft, no peritoneal signs. Absent: distended, tenderness - Skin Skin exam: Present: dry, rash (Right occipital area and postauricular area wound surrounded by erythema consistent with cellulitis.) Internal Medicine: Result - Labs CBC & Chem 7: 07/05/17 06:42 07/05/17 15:25 Labs: Short CBC 07/05/17 Range/Units 06:42 WBC 15.3 H (4.3-11.1) K/mcL Hgb 12.5 L (12.9-16.9) g/dL Hct 39.3 (37.5-50.1) % Plt Count 215 (140-400) K/mcL Neutrophils # 13.2 H (1.6-8.9) K/mcL BMP 07/05/17 11:41 Sodium 138 Potassium 4.0 Chloride 105 Carbon Dioxide 28 BUN 10 Creatinine 0.73 Glucose 182 H Calcium 8.9 - ABG Interpretation ABG results: PT/INR, D-dimer PT 11.9 Seconds (9.4-12.1) 07/04/17 05:16 Consult Discharge Plan - Plan Referrals: NONE,PCP [Primary Care Provider] -
[2017-07-05] MEDS: tiZANidine 4 MG TABLET PO PRN ×2 (15:56→20:03)
[2017-07-05 15:58] LABS: BUN/Creatinine Ratio 13 (6-26); Blood Urea Nitrogen 9 mg/dL (6-20); eGFR For African Americans > 60 (> 60); eGFR For Non-African Americans > 60 (> 60)
[2017-07-05] MEDS ORDERED: Sildenafil Citrate 20 MG TABLET PO ONE (16:14)
[2017-07-05] MEDS ORDERED: Sildenafil Citrate 20 MG TABLET PO SCH (21:00)
[2017-07-06] MEDS: *HR* OxyCODONE Immed Rel 5 MG TABLET PO PRN ×4 (02:02→20:41)
[2017-07-06 04:29] LABS: Basophils % 0.3 %; Eosinophils # 0.2 K/mcL (0.0-0.6); Eosinophils % 1.9 %; Immature Granulocytes % 0.2 % (0-4); Lymphocytes % 21.7 %; Mean Corpuscular HGB Conc 32.4 g/dL (31.6-35.5); Mean Corpuscular Hemoglobin 28.5 pg (28.0-33.3); Mean Corpuscular Volume 87.8 fL (83.0-100.0); Mean Platelet Volume 10.9 fL (9.4-12.4); Monocytes # 0.7 K/mcL (0.0-1.3); Monocytes % 7.6 %; Neutrophils # 6.2 K/mcL (1.6-8.9); Platelet Count 195 K/mcL (140-400); Red Blood Count 3.76 M/mcL (4.19-5.50); Red Cell Distribution Width 14.6 % (11.5-14.5); Segmented Neutrophils % 68.3 %
[2017-07-06 04:34] LABS: Hemoglobin 10.7 g/dL (12.9-16.9)
[2017-07-06] MEDS: *HR* Enoxaparin 40 MG/0.4 ML SYRINGE SQ SCH (05:23)
[2017-07-06 06:14] LABS: BUN/Creatinine Ratio 10 (6-26); Blood Urea Nitrogen 9 mg/dL (6-20); Calcium 8.7 mg/dL (8.6-10.3); Carbon Dioxide 26 mEq/L (23-29); Chloride 107 mEq/L (98-107); Glucose 110 mg/dL (70-105); Osmolality,Calculated 291 (280-300); Potassium 3.6 mEq/L (3.5-5.1); Sodium 141 mEq/L (136-145); eGFR For African Americans > 60 (> 60); eGFR For Non-African Americans > 60 (> 60)
[2017-07-06] MEDS: Sildenafil Citrate 20 MG TABLET PO SCH ×3 (08:23→20:04)
[2017-07-06] MEDS: Gabapentin 400 MG CAPSULE PO SCH ×3 (08:23→20:05)
[2017-07-06] MEDS: tiZANidine 4 MG TABLET PO PRN ×3 (10:28→20:04)
--- NOTE | 2017-07-06 16:07 | Internal Med Progress Note ---
Date of Encounter: 07/06/17 Time of Encounter: 11:04 - Assessment and plan (1) Cellulitis Current Visit: Yes Status: Acute Assessment and plan: Continue with IV vancomycin. Dose by levels. Monitor levels first toxicity. High risk for morbidity and complications. 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 He is currently back to baseline. His toxic metabolic encephalopathy likely secondary to opiates. Upon further history provided by the patient's spouse he started taking his medication 3 days prior to presentation which was the [facility]. His mental status continues to decline. He was brought to the emergency department and was given Narcan in the ambulance. She did state that he became agitated after Narcan. In the emergency department his mental status improved however is not back to baseline and he was discharged home. Soon after being discharged home he became stuporous and lethargic and was brought back to the hospital at which point he was intubated. Altogether the above information suggests unintentional overdose with prescribed Roxicodone due to poor understanding of the risks and possibly drug dependence. Counseled patient and family member to slowly increased the dose of oxycodone and hold for sedation. 07/05/2017: Likely secondary to a combination of resuming a daily dose of 60 mg oxycodone daily after. Of opiate abstinence in addition to Zanaflex and gabapentin. Pain appears to be adequately controlled with 10 mg oxycodone every 6 hours at this point. Patient is very insistent that he would like to increase to his home dose of 10 mg every 4 hours. I explained the high potential for harm and therefore we will continue with the current dose and only slowly increased dose as tolerated if needed. Continue with ceftriaxone and gabapentin as per her is home medication regimen. (3) Opiate or related narcotic overdose Current Visit: Yes Status: Suspected Assessment and plan: Mental status is back to baseline. Continue current dose of oxycodone 10 mg oral every 6 hours. Qualifiers: Encounter type: initial encounter Injury intent: accidental or unintentional Qualified Code(s): T40.601A - Poisoning by unspecified narcotics , accidental (unintentional), initial encounter (4) Hypoxemia Current Visit: Yes Status: Resolved Assessment and plan: Likely secondary to central hypoventilation due to encephalopathy. Now resolved. (5) Seizure Current Visit: Yes Status: Acute Assessment and plan: Seizure reported by family member most likely secondary to hypoxemia and opiate overdose. No further workup needed. I emphasized safe use of pain medication. No seizure prophylaxis needed at this time. - Subjective Interval history: 07/06/2017: Patient currently reports aching 10/10 lower back pain radiating to both legs. 07/05/2017: Patient was admitted 2 days ago when he presented to the hospital with altered mental status. He was hypoxic. He was emergently intubated and transferred to the ICU. He was extubated yesterday and his mental status has improved. Patient reports severe sharp lower back pain which is chronic. He states that he takes oxycodone 10 mg 6 times daily at home. She does tell me that he was recently incarcerated and during the period of incarceration of 30 days he was not given any oxycodone. After returning home he started taking his oxycodone as before, 6 times daily which he said had his pain under control. Additionally he resumed his Zanaflex and gabapentin per previous regimen. - Constitutional Vitals: Temp Pulse Resp BP Pulse Ox 98.5 F 97 18 167/97 98 07/06/17 14:47 07/06/17 14:47 07/06/17 14:47 07/06/17 14:47 07/06/17 14:47 General appearance: Present: A&O X 3, no acute distress (He reports 10/10 pain currently however he appears very jovial, moving freely and laughing frequently) , answers questions appropriately - Respiratory Respiratory exam: Present: CTAB. Absent: accessory muscle use, rales, rhonchi, wheezes - Cardiovascular Cardiovascular exam: Present: RRR, +S1, +S2. Absent: diastolic murmur, gallop, rubs, systolic murmur - GI/Abdominal GI/Abdominal exam: Present: normal bowel sounds, soft, no peritoneal signs. Absent: distended, tenderness - Skin Skin exam: Present: dry, intact Internal Medicine: Result - Labs CBC & Chem 7: 07/06/17 04:06 07/06/17 04:06 Labs: Short CBC 07/06/17 Range/Units 04:06 WBC 9.1 (4.3-11.1) K/mcL Hgb 10.7 L D (12.9-16.9) g/dL Hct 33.0 L (37.5-50.1) % Plt Count 195 (140-400) K/mcL Neutrophils # 6.2 (1.6-8.9) K/mcL BMP 07/06/17 04:06 Sodium 141 Potassium 3.6 Chloride 107 Carbon Dioxide 26 BUN 9 Creatinine 0.93 Glucose 110 H Calcium 8.7 - ABG Interpretation ABG results: PT/INR, D-dimer PT 11.9 Seconds (9.4-12.1) 07/04/17 05:16 Consult Discharge Plan - Plan Referrals: NONE,PCP [Primary Care Provider] -
[2017-07-07] MEDS: *HR* Enoxaparin 40 MG/0.4 ML SYRINGE SQ SCH (04:57)
[2017-07-07] MEDS: Sildenafil Citrate 20 MG TABLET PO SCH ×3 (08:47→20:32)
[2017-07-07] MEDS: *HR* OxyCODONE Immed Rel 5 MG TABLET PO PRN ×3 (08:48→21:09)
[2017-07-07] MEDS: tiZANidine 4 MG TABLET PO PRN ×3 (08:48→20:35)
[2017-07-07] MEDS: Gabapentin 400 MG CAPSULE PO SCH ×3 (08:48→20:32)
[2017-07-07] MEDS ORDERED: Tdap (ADACEL) Vaccine 0.5 ML IM ONE (14:30)
--- NOTE | 2017-07-07 17:31 | Internal Med Progress Note ---
Date of Encounter: 07/07/17 Time of Encounter: 14:00 - Assessment and plan (1) Cellulitis Current Visit: Yes Status: Acute Assessment and plan: Continue with IV vancomycin. Dose by levels. Monitor levels first toxicity. High risk for morbidity and complications due to IV vancomycin which requires intensive blood level monitoring for toxicity. Qualifiers: Site of cellulitis: head Qualified Code(s): L03.811 - Cellulitis of head [ any part, except face] (2) Encephalopathy acute Current Visit: Yes Status: Acute Assessment and plan: 07/07/2017: I will reduce the dose of oxycodone to 7.5 mg every 6 hours as needed. Continue with gabapentin and Zanaflex for synergy. Given recurrent episodes of confusion there is a possibility for acute versus subacute encephalitis and therefore I have ordered a fluoroscopy guided lumbar puncture for CSF analysis. Given his prior history of spinal surgery lumbar puncture cannot be performed at bedside. 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 He is currently back to baseline. His toxic metabolic encephalopathy likely secondary to opiates. Upon further history provided by the patient's spouse he started taking his medication 3 days prior to presentation which was the day he was released from [facility]. His mental status continues to decline. He was brought to the emergency department and was given Narcan in the ambulance. She did state that he became agitated after Narcan. In the emergency department his mental status improved however is not back to baseline and he was discharged home. Soon after being discharged home he became stuporous and lethargic and was brought back to the hospital at which point he was intubated. Altogether the above information suggests unintentional overdose with prescribed Roxicodone due to poor understanding of the risks and possibly drug dependence. Counseled patient and family member to slowly increased the dose of oxycodone and hold for sedation. 07/05/2017: Likely secondary to a combination of resuming a daily dose of 60 mg oxycodone daily after. Of opiate abstinence in addition to Zanaflex and gabapentin. Pain appears to be adequately controlled with 10 mg oxycodone every 6 hours at this point. Patient is very insistent that he would like to increase to his home dose of 10 mg every 4 hours. I explained the high potential for harm and therefore we will continue with the current dose and only slowly increased dose as tolerated if needed. Continue with ceftriaxone and gabapentin as per her is home medication regimen. (3) Opiate or related narcotic overdose Current Visit: Yes Status: Suspected Assessment and plan: Mental status is back to baseline with episodes of waxing and waning. I will decrease the dose of oxycodone to 7.5 mg every 6 hours. Qualifiers: Encounter type: initial encounter Injury intent: accidental or unintentional Qualified Code(s): T40.601A - Poisoning by unspecified narcotics , accidental (unintentional), initial encounter (4) Hypoxemia Current Visit: Yes Status: Resolved Assessment and plan: Likely secondary to central hypoventilation due to encephalopathy. Now resolved. (5) Seizure Current Visit: Yes Status: Acute Assessment and plan: No further seizures noted during this inpatient hospitalization. Seizure reported by family member at home most likely secondary to hypoxemia and opiate overdose. No further workup for seizures needed. I emphasized safe use of pain medication. No seizure prophylaxis needed at this time. - Subjective Interval history: 07/07/2017: Patient patient reports severe headache, referred to the top and back of the head, worse with movement, headache is worse than yesterday, reports associated occasional confusion and this is corroborated by patient's spouse at the bedside. He also reports moderate back pain. 07/06/2017: Patient currently reports aching 10/10 lower back pain radiating to both legs. 07/05/2017: Patient was admitted 2 days ago when he presented to the hospital with altered mental status. He was hypoxic. He was emergently intubated and transferred to the ICU. He was extubated yesterday and his mental status has improved. Patient reports severe sharp lower back pain which is chronic. He states that he takes oxycodone 10 mg 6 times daily at home. She does tell me that he was recently incarcerated and during the period of incarceration of 30 days he was not given any oxycodone. After returning home he started taking his oxycodone as before, 6 times daily which he said had his pain under control. Additionally he resumed his Zanaflex and gabapentin per previous regimen. - Constitutional Vitals: Temp Pulse Resp BP Pulse Ox 97.8 F 87 15 153/88 95 07/07/17 14:12 07/07/17 14:12 07/07/17 14:12 07/07/17 14:12 07/07/17 14:12 General appearance: Present: A&O X 3, no acute distress (He reports 10/10 pain currently however he appears very jovial, moving freely and laughing frequently) , answers questions appropriately - Respiratory Respiratory exam: Present: CTAB. Absent: accessory muscle use, rales, rhonchi, wheezes - Cardiovascular Cardiovascular exam: Present: RRR, +S1, +S2. Absent: diastolic murmur, gallop, rubs, systolic murmur - GI/Abdominal GI/Abdominal exam: Present: normal bowel sounds, soft, no peritoneal signs. Absent: distended, tenderness - Extremities Exam Extremities exam: Present: warm, radial pulses palpable and symmetrical. Absent : calf tenderness, cyanotic, pedal edema - Back Exam Additional comments: Lower back median surgical scar noted. - Neurological Exam Neurological exam: Present: CN II-XII intact, oriented X3, no focal deficits. Absent: pronater drift, facial droop, speech deficit - Skin Additional comments: Skin rash and cellulitis on the right retroauricular area improved from yesterday. Internal Medicine: Result - Labs CBC & Chem 7: 07/06/17 04:06 07/06/17 04:06 - ABG Interpretation ABG results: PT/INR, D-dimer PT 11.9 Seconds (9.4-12.1) 07/04/17 05:16 Consult Discharge Plan - Plan Referrals: NONE,PCP [Primary Care Provider] -
[2017-07-08] MEDS: *HR* OxyCODONE Immed Rel 5 MG TABLET PO PRN ×4 (03:26→22:10)
[2017-07-08 07:23] LABS: Basophils % 0.5 %; Eosinophils # 0.6 K/mcL (0.0-0.6); Eosinophils % 8.8 %; Hematocrit 36.5 % (37.5-50.1); Hemoglobin 12.2 g/dL (12.9-16.9); Immature Granulocytes % 0.9 % (0-4); Lymphocytes # 1.3 K/mcL (0.6-4.6); Lymphocytes % 19.9 %; Mean Corpuscular HGB Conc 33.4 g/dL (31.6-35.5); Mean Corpuscular Hemoglobin 28.2 pg (28.0-33.3); Mean Corpuscular Volume 84.3 fL (83.0-100.0); Mean Platelet Volume 9.7 fL (9.4-12.4); Monocytes # 0.7 K/mcL (0.0-1.3); Monocytes % 10.3 %; Platelet Count 241 K/mcL (140-400); Red Blood Count 4.33 M/mcL (4.19-5.50); Red Cell Distribution Width 13.7 % (11.5-14.5); Segmented Neutrophils % 59.6 %
[2017-07-08 07:30] LABS: INR 0.9
[2017-07-08] MEDS ORDERED: Aminoglycoside Consult 1 EACH MC ONE (07:31)
[2017-07-08 07:32] LABS: Activated Partial Thrombo Time 27.3 Seconds (26.0-36.0)
[2017-07-08] MEDS ORDERED: Lidocaine -MPF 1% 2 ML VIAL INFILT ONE (08:39)
[2017-07-08] MEDS: Sildenafil Citrate 20 MG TABLET PO SCH ×3 (09:36→20:10)
[2017-07-08] MEDS: tiZANidine 4 MG TABLET PO PRN ×3 (09:36→20:10)
[2017-07-08] MEDS: Gabapentin 400 MG CAPSULE PO SCH ×3 (09:36→20:11)
[2017-07-08] MEDS: Sulfamethoxazole/Trimeth 10 ML in D5% in Water 500 ML IVPB SCH (16:55)
--- NOTE | 2017-07-08 18:05 | Internal Med Progress Note ---
Date of Encounter: 07/08/17 Time of Encounter: 18:03 - Assessment and plan (1) Cellulitis Current Visit: Yes Status: Acute Assessment and plan: Will switch to Bactrim and discontinue Vancomycin and Cipro Qualifiers: Site of cellulitis: head Qualified Code(s): L03.811 - Cellulitis of head [ any part, except face] (2) Encephalopathy acute Current Visit: Yes Status: Acute Assessment and plan: He had GCS 3 and needed intubation in ED. Treated for mengingitis emperically with IV vanc and cipro (allergy to PCN) 07/05/2017: Likely secondary to a combination of resuming a daily dose of 60 mg oxycodone daily after. Of opiate abstinence in addition to Zanaflex and gabapentin. 07/06/2017: SYSTEM TRAINER infection has been ruled out he did not require CSF analysis. He is currently back to baseline. His toxic metabolic encephalopathy likely secondary to opiates. Upon further history provided by the patient's spouse he started taking his medication 3 days prior to presentation which was the day he was released from [facility]. His mental status continues to decline. He was brought to the emergency department and was given Narcan in the ambulance. She did state that he became agitated after Narcan. In the emergency department his mental status improved however is not back to baseline and he was discharged home. Soon after being discharged home he became stuporous and lethargic and was brought back to the hospital at which point he was intubated. Altogether the above information suggests unintentional overdose with prescribed Roxicodone due to poor understanding of the risks and possibly drug dependence. 07/07/2017: I will reduce the dose of oxycodone to 7.5 mg every 6 hours as needed. Continue with gabapentin and Zanaflex for synergy. Given recurrent episodes of confusion there is a possibility for acute versus subacute encephalitis and therefore I have ordered a fluoroscopy guided lumbar puncture for CSF analysis. Given his prior history of spinal surgery lumbar puncture cannot be performed at bedside. 07/08/2017: It has been noted that patient mental status is improving. patient notes this as well. However, he does mention that he still has headaches and confusion episodes. - IR to do LP planned for today - MRI brain - HIV, syphilis, Hep C studies. - Pain appears to be adequately controlled with 10 mg oxycodone every 6 hours at this point. Patient is very insistent that he would like to increase to his home dose of 10 mg every 4 hours. Continue with gabapentin as per her is home medication regimen. If LP results not suggestive of infection, likely discharge home. (3) Seizure Current Visit: Yes Status: Acute Assessment and plan: No further seizures noted during this inpatient hospitalization. Seizure reported by family member at home most likely secondary to hypoxemia and opiate overdose. No further workup for seizures needed. No seizure prophylaxis needed at this time. (4) Opiate or related narcotic overdose Current Visit: Yes Status: Suspected Assessment and plan: Mental status is back to baseline with episodes of waxing and waning. Continue oxycodone to 7.5 mg every 6 hours. Qualifiers: Encounter type: initial encounter Injury intent: accidental or unintentional Qualified Code(s): T40.601A - Poisoning by unspecified narcotics , accidental (unintentional), initial encounter (5) Hypoxemia Current Visit: Yes Status: Resolved Assessment and plan: Likely secondary to central hypoventilation due to encephalopathy. Now resolved. - Subjective Interval history: Patient states still having headache for days, with knots all over his head. States he is getting confused occasionally and feels better though. States that he needs more than Roxyicodone 7.5 mg at this point. He denies fevers/ chills, change in vision, n/v. - Constitutional Vitals: Temp Pulse Resp BP Pulse Ox 98.0 F 61 16 108/67 95 07/08/17 17:04 07/08/17 17:04 07/08/17 17:04 07/08/17 17:04 07/08/17 17:04 General appearance: Present: A&O X 3, no acute distress, answers questions appropriately Exam: - Respiratory Respiratory exam: Present: CTAB. Absent: accessory muscle use, rales, rhonchi, wheezes - Cardiovascular Cardiovascular exam: Present: RRR, +S1, +S2. Absent: diastolic murmur, gallop, rubs, systolic murmur - GI/Abdominal GI/Abdominal exam: Present: normal bowel sounds, soft, no peritoneal signs. Absent: distended, tenderness - Extremities Exam Extremities exam: Present: warm, radial pulses palpable and symmetrical. Absent : calf tenderness, cyanotic, pedal edema - Back Exam Additional comments: Lower back median surgical scar noted. - Neurological Exam Neurological exam: Present: CN II-XII intact, oriented X3, no focal deficits. Absent: pronater drift, facial droop, speech deficit - Skin Additional comments: Skin rash and cellulitis on the right retroauricular area Internal Medicine: Result - Labs CBC & Chem 7: 07/08/17 06:48 07/06/17 04:06 Labs: Short CBC 07/08/17 Range/Units 06:48 WBC 6.6 (4.3-11.1) K/mcL Hgb 12.2 L D (12.9-16.9) g/dL Hct 36.5 L (37.5-50.1) % Plt Count 241 (140-400) K/mcL Neutrophils # 4.0 (1.6-8.9) K/mcL - ABG Interpretation ABG results: PT/INR, D-dimer PT 10.0 Seconds (9.4-12.1) 07/08/17 06:48 - Impressions Impressions Brain MRI 07/08/17 11:57 IMPRESSION: Normal MRI of the brain. D/ / Abelardo Morales MD / Abelardo Morales MD Interpreting Provider: Abelardo Morales MD Consult Discharge Plan - Plan Referrals: NONE,PCP [Primary Care Provider] -
[2017-07-09] MEDS: Sulfamethoxazole/Trimeth 10 ML in D5% in Water 500 ML IVPB SCH ×2 (03:56→17:22)
[2017-07-09 04:09] LABS: Basophils % 0.5 %; Eosinophils # 0.5 K/mcL (0.0-0.6); Eosinophils % 6.1 %; Hemoglobin 12.8 g/dL (12.9-16.9); Immature Granulocytes % 0.8 % (0-4); Lymphocytes # 1.2 K/mcL (0.6-4.6); Lymphocytes % 13.6 %; Mean Corpuscular HGB Conc 33.7 g/dL (31.6-35.5); Mean Corpuscular Hemoglobin 28.4 pg (28.0-33.3); Mean Corpuscular Volume 84.3 fL (83.0-100.0); Mean Platelet Volume 9.4 fL (9.4-12.4); Monocytes # 0.7 K/mcL (0.0-1.3); Monocytes % 7.7 %; Neutrophils # 6.2 K/mcL (1.6-8.9); Platelet Count 247 K/mcL (140-400); Red Blood Count 4.51 M/mcL (4.19-5.50); Segmented Neutrophils % 71.3 %
[2017-07-09] MEDS: *HR* OxyCODONE Immed Rel 5 MG TABLET PO PRN ×4 (04:15→23:13)
[2017-07-09 04:29] LABS: BUN/Creatinine Ratio 8 (6-26); Blood Urea Nitrogen 6 mg/dL (6-20); Calcium 9.1 mg/dL (8.6-10.3); Carbon Dioxide 30 mEq/L (23-29); Chloride 103 mEq/L (98-107); Glucose 117 mg/dL (70-105); Osmolality,Calculated 283 (280-300); Potassium 4.1 mEq/L (3.5-5.1); Sodium 137 mEq/L (136-145); eGFR For African Americans > 60 (> 60); eGFR For Non-African Americans > 60 (> 60)
[2017-07-09 06:37] LABS: HIV-1&2 Antibody & p24 Ag Nonreactive (Nonreactive); Hepatitis A Antibody IgM Nonreactive (Nonreactive); Hepatitis B Core IgM Nonreactive (Nonreactive); Hepatitis B Surface Antigen Nonreactive (Nonreactive)
[2017-07-09 06:41] LABS: Hepatitis C Virus Antibody Reactive (Nonreactive)
[2017-07-09] MEDS: Gabapentin 400 MG CAPSULE PO SCH ×3 (08:22→20:15)
[2017-07-09] MEDS: Sildenafil Citrate 20 MG TABLET PO SCH ×3 (08:22→20:16)
[2017-07-09] MEDS: tiZANidine 4 MG TABLET PO PRN ×3 (08:22→20:16)
--- NOTE | 2017-07-09 16:55 | Internal Med Progress Note ---
Date of Encounter: 07/09/17 Time of Encounter: 16:49 - Assessment and plan (1) Cellulitis Current Visit: Yes Status: Acute Assessment and plan: Currently on Bactrim, improving. Qualifiers: Site of cellulitis: head Qualified Code(s): L03.811 - Cellulitis of head [ any part, except face] (2) Encephalopathy acute Current Visit: Yes Status: Acute Assessment and plan: He had GCS 3 and needed intubation in ED. Treated for mengingitis emperically with IV vanc and cipro (allergy to PCN) 07/05/2017: Likely secondary to a combination of resuming a daily dose of 60 mg oxycodone daily after. Of opiate abstinence in addition to Zanaflex and gabapentin. 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 He is currently back to baseline. His toxic metabolic encephalopathy likely secondary to opiates. Upon further history provided by the patient's spouse he started taking his medication 3 days prior to presentation which was the day he was released from custodial. His mental status continues to decline. He was brought to the emergency department and was given Narcan in the ambulance. She did state that he became agitated after Narcan. In the emergency department his mental status improved however is not back to baseline and he was discharged home. Soon after being discharged home he became stuporous and lethargic and was brought back to the hospital at which point he was intubated. Altogether the above information suggests unintentional overdose with prescribed Roxicodone due to poor understanding of the risks and possibly drug dependence. 07/07/2017: I will reduce the dose of oxycodone to 7.5 mg every 6 hours as needed. Continue with gabapentin and Zanaflex for synergy. Given recurrent episodes of confusion there is a possibility for acute versus subacute encephalitis and therefore I have ordered a fluoroscopy guided lumbar puncture for CSF analysis. Given his prior history of spinal surgery lumbar puncture cannot be performed at bedside. 07/08/2017: It has been noted that patient mental status is improving. patient notes this as well. However, he does mention that he still has headaches and confusion episodes. - IR to do LP planned for today - MRI brain - HIV, syphilis, Hep C studies. - Pain appears to be adequately controlled with 10 mg oxycodone every 6 hours at this point. Patient is very insistent that he would like to increase to his home dose of 10 mg every 4 hours. Continue with gabapentin as per her is home medication regimen. LP not done by IR yesterday. Will need to be reconsulted to do procedure [place] reconsult Neurology as patient is complaining of severe headache. (3) Seizure Current Visit: Yes Status: Acute Assessment and plan: No further seizures noted during this inpatient hospitalization. Seizure reported by family member at home most likely secondary to hypoxemia and opiate overdose. No further workup for seizures needed. No seizure prophylaxis needed at this time. (4) Opiate or related narcotic overdose Current Visit: Yes Status: Suspected Assessment and plan: Mental status is back to baseline with episodes of waxing and waning. Continue oxycodone to 7.5 mg every 6 hours. Qualifiers: Encounter type: initial encounter Injury intent: accidental or unintentional Qualified Code(s): T40.601A - Poisoning by unspecified narcotics , accidental (unintentional), initial encounter (5) Hypoxemia Current Visit: Yes Status: Resolved Assessment and plan: Likely secondary to central hypoventilation due to encephalopathy. Now resolved. - Subjective Interval history: States back pain is very severe and unable to move at time. Roxyicodone 7.5 mg ineffective at this point. He denies fevers/chills, change in vision, n/v. - Constitutional Vitals: Temp Pulse Resp BP Pulse Ox 98.1 F 88 15 117/74 95 07/09/17 14:25 07/09/17 14:25 07/09/17 14:25 07/09/17 14:25 07/09/17 14:25 General appearance: Present: A&O X 3, no acute distress, answers questions appropriately Exam: - Respiratory Respiratory exam: Present: CTAB. Absent: accessory muscle use, rales, rhonchi, wheezes - Cardiovascular Cardiovascular exam: Present: RRR, +S1, +S2. Absent: diastolic murmur, gallop, rubs, systolic murmur - GI/Abdominal GI/Abdominal exam: Present: normal bowel sounds, soft, no peritoneal signs. Absent: distended, tenderness - Extremities Exam Extremities exam: Present: warm, radial pulses palpable and symmetrical. Absent : calf tenderness, cyanotic, pedal edema - Back Exam Additional comments: Lower back median surgical scar noted. - Neurological Exam Neurological exam: Present: CN II-XII intact, oriented X3, no focal deficits. Absent: pronater drift, facial droop, speech deficit - Skin Additional comments: Skin rash and cellulitis with ulceration of scalp on the right retroauricular area no meningeal signs - Neck Neck exam general surgery: Present: normal inspection. Absent: nuchal rigidity Internal Medicine: Result - Labs CBC & Chem 7: 07/09/17 03:59 07/09/17 03:59 Labs: Short CBC 07/09/17 Range/Units 03:59 WBC 8.7 (4.3-11.1) K/mcL Hgb 12.8 L (12.9-16.9) g/dL Hct 38.0 (37.5-50.1) % Plt Count 247 (140-400) K/mcL Neutrophils # 6.2 (1.6-8.9) K/mcL BMP 07/09/17 03:59 Sodium 137 Potassium 4.1 Chloride 103 Carbon Dioxide 30 H BUN 6 Creatinine 0.77 Glucose 117 H Calcium 9.1 - ABG Interpretation ABG results: PT/INR, D-dimer PT 10.0 Seconds (9.4-12.1) 07/08/17 06:48 Consult Discharge Plan - Plan Referrals: NONE,PCP [Primary Care Provider] -
[2017-07-10] MEDS: *HR* OxyCODONE Immed Rel 5 MG TABLET PO PRN ×2 (05:13→11:17)
[2017-07-10] MEDS: Sulfamethoxazole/Trimeth 10 ML in D5% in Water 500 ML IVPB SCH (05:32)
[2017-07-10 05:47] LABS: Basophils % 0.3 %; Eosinophils # 0.6 K/mcL (0.0-0.6); Eosinophils % 6.9 %; Hematocrit 43.2 % (37.5-50.1); Hemoglobin 14.2 g/dL (12.9-16.9); Immature Granulocytes % 1.8 % (0-4); Lymphocytes # 1.6 K/mcL (0.6-4.6); Lymphocytes % 17.3 %; Mean Corpuscular HGB Conc 32.9 g/dL (31.6-35.5); Mean Corpuscular Hemoglobin 27.8 pg (28.0-33.3); Mean Corpuscular Volume 84.5 fL (83.0-100.0); Mean Platelet Volume 9.3 fL (9.4-12.4); Monocytes # 0.8 K/mcL (0.0-1.3); Monocytes % 9.3 %; Neutrophils # 5.8 K/mcL (1.6-8.9); Platelet Count 323 K/mcL (140-400); Red Blood Count 5.11 M/mcL (4.19-5.50); Red Cell Distribution Width 14.3 % (11.5-14.5); Segmented Neutrophils % 64.4 %
[2017-07-10 05:56] LABS: BUN/Creatinine Ratio 9 (6-26); Blood Urea Nitrogen 8 mg/dL (6-20); Calcium 9.2 mg/dL (8.6-10.3); Carbon Dioxide 26 mEq/L (23-29); Chloride 103 mEq/L (98-107); Glucose 106 mg/dL (70-105); Osmolality,Calculated 277 (280-300); Potassium 4.4 mEq/L (3.5-5.1); Sodium 134 mEq/L (136-145); eGFR For African Americans > 60 (> 60); eGFR For Non-African Americans > 60 (> 60)
[2017-07-10] MEDS: tiZANidine 4 MG TABLET PO PRN (08:30)
[2017-07-10] MEDS: Sildenafil Citrate 20 MG TABLET PO SCH ×2 (08:30→14:04)
[2017-07-10] MEDS: Gabapentin 400 MG CAPSULE PO SCH ×2 (08:30→14:03)
[2017-07-10] MEDS ORDERED: tiZANidine 4 MG TABLET PO SCH (09:00)
[2017-07-10 10:48] VITALS: BP 109/68
--- NOTE | 2017-07-10 13:16 | Discharge Summary ---
- NOTES TO OUTPATIENT PROVIDER Notes to Outpatient Provider: Follow-up with primary care physician in 2-3 days. Patient agrees to this. Recheck neck wound. Agrees to follow-up with Gastroenterology fro hepatitis C - web request being made today. Neurology recommended decreasing opiate dosage to decrease headache symptoms. Orders not resulted at time of discharge: Pending orders 07/07/17 14:26 AFB Smear [TB] Routine Borrelia burgdorferi Panel CSF Routine Cell Count w Diff, CSF [BF] Routine Cryptococcal Antigen [MYC] Routine Fungal Culture [MYC] Routine Glucose,CSF [BF] Routine Total Protein,CSF [BF] Routine VDRL reflex titer, CSF Routine Varicella-Zoster Virus PCR Routine 07/07/17 14:28 Culture,CSF [RM] Routine Gram Stain [RM] Routine 07/07/17 14:34 Cytomegalovirus IgG IgM Routine Toxoplasma gondii PCR Routine 07/07/17 14:35 HSV 1 Glycoprotein G IgG CSF Routine HSV 2 Glycoprotein G IgG CSF Routine 07/07/17 14:36 Herpes Simplex PCR Body Fl Routine 07/08/17 12:30 MALIHA IgG KATLIN rflx IFA Stat 07/09/17 09:07 HCV Genotype by Sequencing Routine Hepatitis C Virus Quant Routine Date of Encounter: 07/10/17 Time of Encounter: 13:14 - Discharge Diagnosis (1) Encephalopathy acute Priority: Primary Status: Resolved Comments: Secondary to opiate overdose requiring Narcan and ICU admission. He was incarcerated for 22 days and went without pain medication and then when returned home he resumed his full dose of narcotics, causing overdose. Patient now stable. Meningitis and other intracranial process were essentially ruled out. He did refuse lumbar puncture in hospital. (2) Cellulitis Priority: Secondary Status: Acute Qualifiers: Site of cellulitis: head Qualified Code(s): L03.811 - Cellulitis of head [ any part, except face] (3) Seizure Priority: Secondary Status: Acute (4) Opiate or related narcotic overdose Priority: Secondary Status: Suspected Qualifiers: Encounter type: initial encounter Injury intent: accidental or unintentional Qualified Code(s): T40.601A - Poisoning by unspecified narcotics , accidental (unintentional), initial encounter (5) Hypoxemia Priority: Secondary Status: Resolved Hospital course: Mr. Burch is a 51-year-old male presented to the ER will with mental status change worsening GCS and was intubated in the ER due to low GCS of 3. Review of medical records suggested that he was seen in the ER in the morning with symptoms of confusion, speaking erratically since yesterday morning. His mental status was thought to have improved with Narcan. Further observation this morning demonstrated stability and was sent home on Bactrim and Keflex combination for CT findings of right external ear cellulitis. Sinced being discharged home, his girlfriend noticed progressive confusion, encephalopathy, had difficulty walking, falling to the ground. Of note he was recently in custodial for 22 days and was recently discharged on July 01. He has a history of chronic back pain and uses Percocet 10 up to 5 times a day, Zanaflex, Neurontin. His girlfriend also reported history of difficulty urinating where he takes sildenafil which helps. Prior to presentaton today, he was being treated for an infection of his scalp with clindamycin, secondary to patient "picking" at it. Patient was admitted treated for opiate overdose which happened after resuming his full dose of home medications after being off of them for 22 days. His mental status improved and patient extubated and transferred out of ICU. Neurology was consulted and etiology seemed most likely from polypharmacy mostly opiates. There was suspicion to rule out meningitis and in the time he was emperically treated with Vancomycin and Cipro. The patient refused LP and he did not show any signs of meningitis on physical exam and mental status was normal. He was able to de escalate to Bactrim for cellulitis of neck treatment. Patient was slowly resumed on home pain medication but tapered gradually. Also timing speced out and dose decreased. Patient did not exhibit any signs of altered mental status. He was neurologically in tact. He stated he did have an episode of confusion and an MRI was done which was negative. An HIV screen was negative but patient did test positive for HCV. Neurology re evaluated patient because of this confusion and also because he had headaches. After re evaluation it is likely this is caused by tension headache which can worsen some with opiates. Patient states he has not been confused recently. Patient remained stable with no altered mental status after he was transferred out of the ICU. He was discharged home in stable condition. - Time Spent with Patient Total time spent providing and/or coordinating discharge services: - Discharge Medications Home Medications: Acetaminophen [Tylenol Arthritis] 650 mg PO Q4-6H PRN 07/04/17 [History] Gabapentin [Neurontin] 800 mg PO TID 07/04/17 [History] Loperamide [Imodium] 2 mg PO DAILY PRN 07/04/17 [History] Sildenafil Citrate [Revatio] 20 mg PO TID 07/04/17 [History] Tizanidine HCl 4 mg PO TID PRN 07/04/17 [History] Bacitracin OINT [Ak-Tracin] 1 appl TP TID tube 07/10/17 [Rx] OxyCODONE Immed Rel [Roxicodone 5 MG] 10 mg PO Q6H PRN 1 Days tablet 07/10/17 [ Rx] Allergies/Adverse Reactions: 3 Allergy/AdvReac Type Severity Reaction Status Date / Time cefepime Allergy Hives Verified 07/07/17 09:37 Cyclobenzaprine Allergy Hives Verified 08/18/16 01:48 [From Flexeril] hydrocodone [From Vicodin] Allergy Hives Verified 08/18/16 01:48 ibuprofen [From Motrin] Allergy Hives Verified 08/18/16 01:48 ketorolac [From Toradol] Allergy Anaphylaxis Verified 08/18/16 01:48 NSAIDS (Non-Steroidal Allergy Anaphylaxis Verified 08/18/16 01:48 Anti-Inflamma Penicillins Allergy Rash Verified 08/18/16 01:48 tramadol Allergy Hives Verified 08/18/16 01:48 STEROIDS Allergy Flushing Uncoded 08/18/16 01:48 Date of admission: 07/04/17 03:06 Primary care physician: PCP NONE Consults: 07/04/17 07:59 Consult to Neurology [CONS] Routine Consulting Provider: [facility] Reason for Consult: altered mental status, encephalopathy Call Completed: Yes 07/08/17 08:39 Consult to Invasive Line Access Team [CONS] Routine Reason for Consult: Picc Line Insertion Line Type: EPIV Discharging clinician: Victoriano Uribe - Constitutional Vitals: Temp Pulse Resp BP Pulse Ox 97.4 F L 79 16 109/68 95 07/10/17 10:46 07/10/17 10:46 07/10/17 10:46 07/10/17 10:46 07/10/17 10:46 General appearance: Present: A&O X 3, no acute distress, answers questions appropriately - Head Head exam: Present: atraumatic, normocephalic - Eye Eye exam: Present: PERRL, conjuntiva pink, sclera anicteric Pupils: Present: PERRL - Neck Neck exam general surgery: Present: supple, trachea midline. Absent: lymphadenopathy - Respiratory Respiratory exam: Present: CTAB. Absent: accessory muscle use, rales, rhonchi, wheezes - Cardiovascular Cardiovascular exam: Present: RRR, +S1, +S2. Absent: diastolic murmur, gallop, rubs, systolic murmur - GI/Abdominal GI/Abdominal exam: Present: normal bowel sounds, soft, no peritoneal signs. Absent: distended, tenderness - Extremities Exam Extremities exam: Present: warm, radial pulses palpable and symmetrical. Absent : calf tenderness, cyanotic, pedal edema - Neurological Exam Neurological exam: Present: CN II-XII intact, oriented X3, no focal deficits. Absent: pronater drift, facial droop, speech deficit - Skin Skin exam: Present: dry, intact Additional comments: Crusting of right posterior neck region where cellulitis is improving. - Patient Status Disposition: Home, Self-Care Condition: Critical Functional capacity at discharge: independent ambulation Overall status at discharge: patient is progressing back to baseline - Discharge Instructions Follow Up With: NONE,PCP [Primary Care Provider] - - Diet and Activity Activity: increase activity as tolerated Diet: advance to your usual diet
--- NOTE | 2017-07-10 17:16 | Neurology Progress Note ---
Date of Encounter: 07/10/17 Time of Encounter: 07:20 Assessment and Plan (1) Muscle contraction headache Status: Acute At the moment his headache seems to be mixed muscle contraction cervicogenic type of the headaches along with the spasms of the neck muscles at the same time he is also having some rebound because of the scheduled doses of narcotics that he is been receiving. He is already on gabapentin suggested to continue but I would recommend that we should tapered him off all the narcotics otherwise his headache would not improve. On current examination I did not see any sign of meningismus particularly no Brudzinski sign, or any sign of EQUINE VET infection. Suggest increasing the muscle relaxers and continue on gabapentin. Other treatment is as per primary team (2) Muscle spasms of neck Status: Acute (3) Chronic back pain Status: Acute Qualifiers: Back pain location: low back pain Back pain laterality: unspecified Sciatica presence: unspecified whether sciatica present Qualified Code(s): M54.5 - Low back pain; G89.29 - Other chronic pain; G89.29 - Other chronic pain Subjective Interval history: Patient was seen earlier in the week, for overdose and mental status changes initial evaluation he was completely normal and did not have any focal neurological deficit. Was asked to reevaluate the patient today because of continuous headache that she is been experiencing he described these headaches as a back of the head radiated to the top pressure like in nature without any photophobia and nausea or any other associated findings. Patient remain on high doses of gabapentin and also on muscle relaxers that he is been on because of his chronic back problem. Now head in the hospital he is also getting narcotics on a scheduled basis. Denies any other new problems he denies any confusion as there was a concern that he may be getting a little bit confused perhaps he may need a spinal tap Objective - Constitutional Vitals: Temp Pulse Resp BP Pulse Ox 97.4 F L 79 16 109/68 95 07/10/17 10:46 07/10/17 10:46 07/10/17 10:46 07/10/17 10:46 07/10/17 10:46 - Neurological Exam Sensorimotor examination: Present: intact Motor Examination: Present: grossly full strength in all extremities, other Sensation intact: Present: intact Reflex and gait examination: intact Mental Status Examination: Present: awake, alert, oriented to person, oriented to place, follows commands appropriately, answers questions appropriately Cranial nerve examination: Present: PERRL, EOMI, visual huerta intact Results - Laboratory Findings CBC and BMP: 07/10/17 05:16 07/10/17 05:16 Abnormal lab findings: Abnormal lab results MCH 27.8 pg (28.0-33.3) L 07/10/17 05:16 MPV 9.3 fL (9.4-12.4) L 07/10/17 05:16 Sodium 134 mEq/L (136-145) L 07/10/17 05:16 Glucose 106 mg/dL (70-105) H 07/10/17 05:16 POC Glucose 133 (58-89) H 07/04/17 04:12 Calculated Osmolality 277 (280-300) L 07/10/17 05:16 Serum Total Protein 5.5 g/dL (6.4-8.9) L 07/04/17 02:24 Albumin 3.1 g/dL (3.5-5.7) L 07/04/17 02:24 Ur Specific [place] > 1.030 (1.010-1.025) H 07/04/17 02:00 Urine Protein 30 mg/dL (Neg-Trace) H 07/04/17 02:00 Urine Blood Trace (Negative) H 07/04/17 02:00 Urine Microscopic WBC 3-5 per hpf (0-3) H 07/04/17 02:00 Ur Squamous Epith Cells Many per lpf (None-Few) H 07/04/17 02:00 Granular Casts Few per lpf (None Seen) H 07/04/17 02:00 Salicylates < 5.0 mg/dL (15.0-30.0) L 07/04/17 05:17 Urine Opiates Screen Positive ng/mL (Pbsucy=782) H 07/04/17 02:00 Acetaminophen < 1.0 mcg/mL (10-30) L 07/04/17 05:17 Hepatitis C Ab Screen Reactive (Nonreactive) H 07/08/17 12:30 Consult Discharge Plan - Plan Instructions: Chronic Back Pain, Edi Programmer Analyst (GEN) Referrals: Elijah Berman DO [Resident] - 07/15/17 1:30 pm Micah Michael MD [Partnered Physician] - (Your primary will get you a referral for Gastroenterology and they will call you with your appt. Thank you) Prescriptions: Bacitracin OINT [Ak-Tracin] 1 appl TP TID #1 tube Sulfamethoxazole/Trimeth DS [Bactrim DS] 1 each PO BID #10 tablet
[2017-07-11 10:29] LABS: ANA IgG by ELISA NONE DETECTED (None Detected)
== END 2017-07-10 14:36 | disposition home or self-care (01) | DRG 812 ==
LOC: EMEROO 23:55 → ICNU 07-04 03:06 → SUATTDRO 07-04 03:06 → ICNU 07-04 04:12 → 3ANU 07-04 15:33
PROVIDERS: ADMIT Internal Medicine; ATTEND Internal Medicine

== ENCOUNTER 2019-06-15 00:32 | Inpatient (IN) ==
[2019-06-15] MEDS ORDERED: cefTRIAXone 1,000 MG in Water for inj. (sterile) 10 ML IVPB ONE (01:06)
[2019-06-15] MEDS ORDERED: Ipratropium/Albuterol Neb 3 ML IH ONE (01:06)
[2019-06-15] MEDS ORDERED: Azithromycin 500 MG in D5% in Water 250 ML IVPB ONE (01:06)
[2019-06-15] MEDS ORDERED: 0.9 % Sodium Chloride 1,000 ML IVC SCH (01:15)
[2019-06-15 01:57] LABS: Hemoglobin 10.2 g/dL (12.9-16.9); INR 1.4; Prothrombin Time 15.6 Seconds (9.4-12.1); Red Cell Distribution Width 14.6 % (11.5-14.5)
[2019-06-15 01:58] LABS: Hematocrit 31.1 % (37.5-50.1); Mean Corpuscular HGB Conc 32.8 g/dL (31.6-35.5); Mean Corpuscular Hemoglobin 24.5 pg (28.0-33.3); Mean Corpuscular Volume 74.6 fL (83.0-100.0); Mean Platelet Volume 9.1 fL (9.4-12.4); Platelet Count 437 K/mcL (140-400); Red Blood Count 4.17 M/mcL (4.19-5.50)
[2019-06-15 02:00] LABS: Activated Partial Thrombo Time 29.1 Seconds (26.0-36.0)
[2019-06-15 02:03] LABS: White Blood Count 36.1 K/mcL (4.3-11.1)
[2019-06-15 02:27] LABS: Lymphocytes # 3.6 K/mcL (0.6-4.6); Neutrophils # 32.5 K/mcL (1.6-8.9); Platelet Estimate Normal (Normal)
[2019-06-15] MEDS ORDERED: Ondansetron 4 MG/2 ML VIAL IVP ONE (02:29)
[2019-06-15 02:37] LABS: Alanine Aminotransferase 10 Units/L (7-52); Albumin 2.9 g/dL (3.5-5.7); Albumin/Globulin Ratio 0.6 (1.1-2.2); Alkaline Phosphatase 97 Units/L (34-104); Aspartate Amino Transferase 15 Units/L (13-39); BUN/Creatinine Ratio 26 (6-26); Bilirubin,Total 0.5 mg/dL (0.3-1.0); Blood Urea Nitrogen 29 mg/dL (6-20); Calcium 8.3 mg/dL (8.6-10.3); Carbon Dioxide 27 mEq/L (23-29); Chloride 93 mEq/L (98-107); Globulin 4.5 g/dL (2.4-3.5); Glucose 113 mg/dL (70-105); Osmolality,Calculated 275 (280-300); Potassium 3.3 mEq/L (3.5-5.1); Sodium 129 mEq/L (136-145); Total Protein 7.4 g/dL (6.4-8.9); eGFR For African Americans > 60 (> 60); eGFR For Non-African Americans > 60 (> 60)
[2019-06-15 02:46] LABS: Troponin I 0.04 ng/mL (< 0.04)
[2019-06-15] MEDS ORDERED: Ondansetron 4 MG/2 ML VIAL IVP PRN (04:04)
[2019-06-15] MEDS ORDERED: Naloxone 0.4 MG/ML INJ IVP PRN ×2 (04:04→04:38)
[2019-06-15] MEDS ORDERED: Ringers Solution, Lactated 2,000 ML IVC ONE (04:07)
[2019-06-15] MEDS ORDERED: Ipratropium/Albuterol Neb 3 ML IH PRN (04:15)
[2019-06-15] MEDS ORDERED: Isovue-370 500 ML BOTTLE IVP ONE (04:27)
[2019-06-15] MEDS ORDERED: Ringers Solution, Lactated 3,000 ML IVC ONE (04:30)
[2019-06-15] MEDS ORDERED: Azithromycin 500 MG in 0.9 % Sodium Chloride 250 ML IVPB SCH (05:00)
[2019-06-15] MEDS ORDERED: cefTRIAXone 2,000 MG in Water for inj. (sterile) 20 ML IVP SCH (05:00)
[2019-06-15] MEDS ORDERED: *HR* HYDROmorphone (PF) 1 MG/ML SYRINGE IVP PRN (05:42)
[2019-06-15] MEDS ORDERED: *HR* Heparin 5,000 UNIT/ML VIAL SQ SCH (06:00)
[2019-06-15] MEDS: Ipratropium/Albuterol Neb 3 ML IH SCH ×5 (07:29→23:41)
[2019-06-15 07:54] LABS: Troponin I 0.28 ng/mL (< 0.04)
[2019-06-15] MEDS ORDERED: *HR* Heparin 5,000 UNIT/ML VIAL IVP PRN ×2 (08:02)
[2019-06-15] MEDS ORDERED: *HR* Heparin 5,000 UNIT/ML VIAL IVP ONE (08:02)
[2019-06-15 08:04] LABS: Iron < 10 mcg/dL (65-175); Thyroid Stimulating Hormone 0.584 mcIU/mL (0.340-5.600); Transferrin 194 mg/dL (203-362)
[2019-06-15 08:07] LABS: Folate 3.2 ng/mL (3.0-16.0)
[2019-06-15] MEDS ORDERED: Heparin 25,000 UNIT/250 ML D5W 25,000 UNIT/250 ML IV.SOLN IVC SCH (08:15)
[2019-06-15] MEDS: levoFLOXacin 750 MG/150 ML 750 MG/150 ML BAG IVPB SCH (08:56)
[2019-06-15 12:51] LABS: Adenovirus Not Detected (Not Detect); Bordetella Pertussis Not Detected (Not Detect); Chlamydophila pneumoniae Not Detected (Not Detect); Coronavirus 229E Not Detected (Not Detect); Coronavirus HKU1 Not Detected (Not Detect); Coronavirus NL63 Not Detected (Not Detect); Coronavirus OC43 Not Detected (Not Detect); Human Metapneumovirus Not Detected (Not Detect); Human Rhinovirus/Enterovirus Not Detected (Not Detect); Influenza A Subtype 2009 H1 Not Detected (Not Detect); Influenza B Not Detected (Not Detect); Mycoplasma pneumoniae Not Detected (Not Detect); Parainfluenza Virus 1 Not Detected (Not Detect); Parainfluenza Virus 2 Not Detected (Not Detect); Parainfluenza Virus 3 Not Detected (Not Detect); Parainfluenza Virus 4 Not Detected (Not Detect); Respiratory Syncytial Virus Not Detected (Not Detect)
[2019-06-15 13:45] LABS: Hematocrit 24.7 % (37.5-50.1); Mean Corpuscular HGB Conc 32.4 g/dL (31.6-35.5); Mean Corpuscular Hemoglobin 23.7 pg (28.0-33.3); Mean Corpuscular Volume 73.1 fL (83.0-100.0); Mean Platelet Volume 9.3 fL (9.4-12.4); Platelet Count 331 K/mcL (140-400); Red Blood Count 3.38 M/mcL (4.19-5.50); Red Cell Distribution Width 14.5 % (11.5-14.5); White Blood Count 21.3 K/mcL (4.3-11.1)
[2019-06-15] MEDS ORDERED: *HR* FentaNYL (PF) 100 MCG/2 ML VIAL ONE (14:13)
[2019-06-15] MEDS ORDERED: *HR* Succinylcholine 200 MG/10 ML VIAL IVP ONE (14:13)
[2019-06-15] MEDS ORDERED: *HR* Propofol 200 MG/20 ML VIAL IVP ONE (14:13)
[2019-06-15] MEDS ORDERED: Lidocaine -MPF 4% 5 ML AMPUL ONE (14:17)
[2019-06-15] MEDS ORDERED: Ondansetron 4 MG/2 ML VIAL ONE (14:20)
[2019-06-15] MEDS ORDERED: Lidocaine -MPF 2% 2 ML VIAL ONE (14:20)
[2019-06-15] MEDS ORDERED: Dexamethasone 4 MG/ML VIAL ONE (14:20)
[2019-06-15] MEDS: MetroNIDAZOLE 500 MG/100 ML 500 MG/100 ML BAG IVPB SCH (15:44)
[2019-06-15 17:23] LABS: Amphetamine Screen,Urine Negative ng/mL (Cutoff=1000); Barbiturate Screen,Urine Negative ng/mL (Cutoff=200); Benzodiazepines Screen,Urine Negative ng/mL (Cutoff=200); Cannabinoid Screen,Urine Negative ng/mL (Cutoff = 50); Cocaine Screen,Urine Negative ng/mL (Cutoff= 300); Opiate Screen,Urine Positive ng/mL (Cutoff=300); Phencyclidine Screen,Urine Negative ng/mL (Cutoff=25)
[2019-06-15 17:26] LABS: Bilirubin,Urine Negative (Negative); Blood,Urine Large (Negative); Clarity,Urine Clear (Clear); Color,Urine Yellow (Yellow); Glucose,Urine (UA) Normal (Normal); Ketones,Urine Negative (Negative); Leukocyte Esterase,Urine Negative (Negative); Nitrite,Urine Negative (Negative); PH,Urine 6.5 pH Units (5.0-8.0); Protein,Urine Trace mg/dL (Neg-Trace); Specific Gravity,Urine 1.009 (1.010-1.025); Urobilinogen,Urine Normal (Normal)
[2019-06-15 17:29] LABS: Bacteria,Urine None Seen per hpf (None-Few); Hyaline Casts,Urine None Seen per lpf (None-Few); RBC,Urine TNTC per hpf (0-3); Squamous Epithelial Cell,Urine Moderate per lpf (None-Few); WBC,Urine 0-3 per hpf (0-3)
[2019-06-15 18:22] LABS: Enterococcus by PCR Not Detected (Not Detect); Staphylococcus aureus by PCR Not Detected (Not Detect); Staphylococcus by PCR Not Detected (Not Detect); blaKPC Carbapenem-Resist Gene Not Detected (Not Detect); mecA Methicillin-Resist Gene Not Detected (Not Detect); vanA/B Vancomycin-Resist Genes Not Detected (Not Detect)
[2019-06-15 18:23] LABS: Acinetobacter baumannii by PCR Not Detected (Not Detect); Candida albicans by PCR Not Detected (Not Detect); Candida glabrata by PCR Not Detected (Not Detect); Candida krusei by PCR Not Detected (Not Detect); Candida parapsilosis by PCR Not Detected (Not Detect); Candida tropicalis by PCR Not Detected (Not Detect); Enterobacter cloacae Cmplx PCR Not Detected (Not Detect); Enterobacteriaceae by PCR Not Detected (Not Detect); Escherichia coli by PCR Not Detected (Not Detect); Klebsiella oxytoca by PCR Not Detected (Not Detect); Klebsiella pneumoniae by PCR Not Detected (Not Detect); Proteus by PCR Not Detected (Not Detect); Pseudomonas aeruginosa by PCR Not Detected (Not Detect); Serratia marcescens by PCR Not Detected (Not Detect); Streptococcus agalactiae(B)PCR Not Detected (Not Detect); Streptococcus by PCR Not Detected (Not Detect); Streptococcus pneumoniae PCR DETECTED (Not Detect); Streptococcus pyogenes (A) PCR Not Detected (Not Detect)
[2019-06-15 20:34] LABS: Source of Body Fluid BAL right middle lob
[2019-06-15 20:35] LABS: Appearance of Body Fluid Cloudy (Clear); Volume of Body Fluid 15 mL
[2019-06-16] MEDS: MetroNIDAZOLE 500 MG/100 ML 500 MG/100 ML BAG IVPB SCH ×2 (00:35→08:54)
[2019-06-16] MEDS: Ipratropium/Albuterol Neb 3 ML IH SCH ×6 (03:50→23:28)
[2019-06-16 04:11] LABS: Basophils % 0.3 %; Eosinophils # 0.1 K/mcL (0.0-0.6); Hemoglobin 8.9 g/dL (12.9-16.9); Immature Granulocytes % 1.3 % (0-4); Lymphocytes # 1.6 K/mcL (0.6-4.6); Lymphocytes % 13.7 %; Mean Corpuscular HGB Conc 31.8 g/dL (31.6-35.5); Mean Corpuscular Hemoglobin 23.9 pg (28.0-33.3); Mean Corpuscular Volume 75.1 fL (83.0-100.0); Mean Platelet Volume 9.3 fL (9.4-12.4); Monocytes # 0.9 K/mcL (0.0-1.3); Monocytes % 7.4 %; Neutrophils # 9.1 K/mcL (1.6-8.9); Platelet Count 367 K/mcL (140-400); Red Blood Count 3.73 M/mcL (4.19-5.50); Red Cell Distribution Width 14.8 % (11.5-14.5); Segmented Neutrophils % 76.3 %; White Blood Count 11.9 K/mcL (4.3-11.1)
[2019-06-16 04:15] LABS: INR 1.3; Prothrombin Time 14.8 Seconds (9.4-12.1)
[2019-06-16 04:38] LABS: Alanine Aminotransferase 15 Units/L (7-52); Albumin 2.9 g/dL (3.5-5.7); Albumin/Globulin Ratio 0.7 (1.1-2.2); Alkaline Phosphatase 68 Units/L (34-104); Aspartate Amino Transferase 29 Units/L (13-39); BUN/Creatinine Ratio 20 (6-26); Bilirubin,Total 0.3 mg/dL (0.3-1.0); Blood Urea Nitrogen 20 mg/dL (6-20); Calcium 8.2 mg/dL (8.6-10.3); Carbon Dioxide 23 mEq/L (23-29); Chloride 101 mEq/L (98-107); Globulin 3.9 g/dL (2.4-3.5); Glucose 104 mg/dL (70-105); Osmolality,Calculated 279 (280-300); Phosphorous 2.6 mg/dL (2.7-4.5); Potassium 3.2 mEq/L (3.5-5.1); Sodium 133 mEq/L (136-145); Total Protein 6.8 g/dL (6.4-8.9); eGFR For African Americans > 60 (> 60); eGFR For Non-African Americans > 60 (> 60)
[2019-06-16] MEDS: levoFLOXacin 750 MG/150 ML 750 MG/150 ML BAG IVPB SCH (09:42)
[2019-06-16] MEDS: Silvasorb 44.4 ML TUBE TP SCH (17:53)
[2019-06-16] MEDS: *HR* Heparin 5,000 UNIT/ML VIAL SQ SCH (17:54)
[2019-06-16] MEDS: Orphenadrine 100 MG TABLET.ER PO PRN (19:35)
[2019-06-16] MEDS: Sildenafil Citrate 20 MG TABLET PO SCH (20:18)
[2019-06-17] MEDS: Ipratropium/Albuterol Neb 3 ML IH SCH ×2 (03:25→07:48)
[2019-06-17] MEDS: *HR* Heparin 5,000 UNIT/ML VIAL SQ SCH ×2 (05:27→16:04)
[2019-06-17 06:18] LABS: Hematocrit 24.2 % (37.5-50.1); Hemoglobin 7.7 g/dL (12.9-16.9); Mean Corpuscular HGB Conc 31.8 g/dL (31.6-35.5); Mean Corpuscular Hemoglobin 23.9 pg (28.0-33.3); Mean Corpuscular Volume 75.2 fL (83.0-100.0); Mean Platelet Volume 9.5 fL (9.4-12.4); Platelet Count 370 K/mcL (140-400); Red Blood Count 3.22 M/mcL (4.19-5.50); Red Cell Distribution Width 15.1 % (11.5-14.5); White Blood Count 11.1 K/mcL (4.3-11.1)
[2019-06-17 06:48] LABS: BUN/Creatinine Ratio 21 (6-26); Blood Urea Nitrogen 19 mg/dL (6-20); Calcium 7.8 mg/dL (8.6-10.3); Carbon Dioxide 25 mEq/L (23-29); Chloride 102 mEq/L (98-107); Glucose 99 mg/dL (70-105); Osmolality,Calculated 278 (280-300); Potassium 3.1 mEq/L (3.5-5.1); Sodium 133 mEq/L (136-145); eGFR For African Americans > 60 (> 60); eGFR For Non-African Americans > 60 (> 60)
[2019-06-17] MEDS ORDERED: Aminoglycoside Consult 1 EACH MC ONE (07:28)
[2019-06-17] MEDS: Sildenafil Citrate 20 MG TABLET PO SCH ×3 (10:00→21:48)
[2019-06-17] MEDS: Orphenadrine 100 MG TABLET.ER PO PRN ×2 (10:00→21:51)
[2019-06-17] MEDS: levoFLOXacin 750 MG/150 ML 750 MG/150 ML BAG IVPB SCH (10:00)
[2019-06-17 14:40] LABS: Mycoplasma pneumoniae IgG 0.36 U/L (<=0.09)
[2019-06-17] MEDS: Pantoprazole 40 MG VIAL IVP SCH (16:03)
[2019-06-17] MEDS: Silvasorb 44.4 ML TUBE TP SCH ×2 (16:06→16:09)
[2019-06-17] MEDS: Ringers Solution, Lactated 500 ML IVC SCH ×2 (22:36→22:37)
[2019-06-18] MEDS: Pantoprazole 40 MG VIAL IVP SCH ×2 (05:35→17:00)
[2019-06-18] MEDS: *HR* Heparin 5,000 UNIT/ML VIAL SQ SCH ×2 (05:36→16:59)
[2019-06-18 05:50] LABS: Hematocrit 27.2 % (37.5-50.1); Hemoglobin 8.6 g/dL (12.9-16.9); Mean Corpuscular HGB Conc 31.6 g/dL (31.6-35.5); Mean Corpuscular Hemoglobin 23.8 pg (28.0-33.3); Mean Corpuscular Volume 75.1 fL (83.0-100.0); Mean Platelet Volume 9.3 fL (9.4-12.4); Platelet Count 517 K/mcL (140-400); Red Blood Count 3.62 M/mcL (4.19-5.50); Red Cell Distribution Width 14.9 % (11.5-14.5); White Blood Count 13.5 K/mcL (4.3-11.1)
[2019-06-18 06:00] LABS: Influenza A PCR Body Fluid NOT DETECTED; Influenza B PCR Body Fluid NOT DETECTED
[2019-06-18 06:09] LABS: BUN/Creatinine Ratio 13 (6-26); Blood Urea Nitrogen 11 mg/dL (6-20); Calcium 7.7 mg/dL (8.6-10.3); Carbon Dioxide 24 mEq/L (23-29); Chloride 103 mEq/L (98-107); Glucose 110 mg/dL (70-105); Osmolality,Calculated 272 (280-300); Potassium 3.8 mEq/L (3.5-5.1); Sodium 131 mEq/L (136-145); eGFR For African Americans > 60 (> 60); eGFR For Non-African Americans > 60 (> 60)
[2019-06-18] MEDS: Sildenafil Citrate 20 MG TABLET PO SCH ×3 (08:55→21:00)
[2019-06-18] MEDS: levoFLOXacin 750 MG/150 ML 750 MG/150 ML BAG IVPB SCH (08:55)
[2019-06-18] MEDS: Silvasorb 44.4 ML TUBE TP SCH (09:07)
[2019-06-18] MEDS: Orphenadrine 100 MG TABLET.ER PO PRN ×2 (13:26→21:00)
[2019-06-18 14:27] LABS: RSV PCR Body Fluid NOT DETECTED; RVP Body Fluid Source NOT PROVIDED
[2019-06-19] MEDS: Pantoprazole 40 MG VIAL IVP SCH ×2 (05:47→18:11)
[2019-06-19 06:08] LABS: Basophils % 0.2 %; Eosinophils # 0.3 K/mcL (0.0-0.6); Eosinophils % 2.3 %; Hematocrit 27.2 % (37.5-50.1); Hemoglobin 8.8 g/dL (12.9-16.9); Lymphocytes # 2.2 K/mcL (0.6-4.6); Mean Corpuscular HGB Conc 32.4 g/dL (31.6-35.5); Mean Corpuscular Hemoglobin 24.2 pg (28.0-33.3); Mean Corpuscular Volume 74.7 fL (83.0-100.0); Mean Platelet Volume 9.1 fL (9.4-12.4); Monocytes % 6.7 %; Neutrophils # 10.8 K/mcL (1.6-8.9); Platelet Count 609 K/mcL (140-400); Red Blood Count 3.64 M/mcL (4.19-5.50); Red Cell Distribution Width 15.3 % (11.5-14.5); Segmented Neutrophils % 73.8 %; White Blood Count 14.6 K/mcL (4.3-11.1)
[2019-06-19 06:22] LABS: BUN/Creatinine Ratio 12 (6-26); Blood Urea Nitrogen 11 mg/dL (6-20); Carbon Dioxide 24 mEq/L (23-29); Chloride 104 mEq/L (98-107); Glucose 109 mg/dL (70-105); Osmolality,Calculated 278 (280-300); Potassium 3.9 mEq/L (3.5-5.1); Sodium 134 mEq/L (136-145); eGFR For African Americans > 60 (> 60); eGFR For Non-African Americans > 60 (> 60)
[2019-06-19] MEDS: Orphenadrine 100 MG TABLET.ER PO PRN (08:22)
[2019-06-19] MEDS: Sildenafil Citrate 20 MG TABLET PO SCH ×2 (08:22→15:23)
[2019-06-19] MEDS: Silvasorb 44.4 ML TUBE TP SCH (08:23)
[2019-06-19] MEDS: *HR* Heparin 5,000 UNIT/ML VIAL SQ SCH ×2 (08:23→18:11)
[2019-06-19] MEDS: levoFLOXacin 750 MG/150 ML 750 MG/150 ML BAG IVPB SCH (08:23)
[2019-06-19 13:05] LABS: HSV Source BAL
[2019-06-19 22:50] LABS: ABG Base Excess -5 mEq/L (-2 to 3); ABG HCO3 21 mEq/L (21-27); ABG Oxygen Saturation 87 % (95-98); ABG PCO2 41 mmHg (35-45); ABG PH 7.32 pH Units (7.32-7.45); ABG PO2 58 mmHg (85-104); ABG TCO2 22 mEq/L (20-26)
[2019-06-19] MEDS ORDERED: 0.9 % Sodium Chloride 1,000 ML IV ONE (23:07)
[2019-06-19 23:23] LABS: Hematocrit 34.2 % (37.5-50.1); Mean Corpuscular HGB Conc 30.7 g/dL (31.6-35.5); Mean Corpuscular Hemoglobin 23.8 pg (28.0-33.3); Mean Corpuscular Volume 77.6 fL (83.0-100.0); Mean Platelet Volume 9.9 fL (9.4-12.4); Platelet Count 792 K/mcL (140-400); Red Blood Count 4.41 M/mcL (4.19-5.50); Red Cell Distribution Width 16.1 % (11.5-14.5)
[2019-06-19 23:25] LABS: Hemoglobin 10.5 g/dL (12.9-16.9); White Blood Count 24.9 K/mcL (4.3-11.1)
[2019-06-19 23:44] LABS: BUN/Creatinine Ratio 10 (6-26); Blood Urea Nitrogen 14 mg/dL (6-20); Calcium 8.6 mg/dL (8.6-10.3); Carbon Dioxide 16 mEq/L (23-29); Chloride 104 mEq/L (98-107); Glucose 107 mg/dL (70-105); Osmolality,Calculated 277 (280-300); Potassium 4.3 mEq/L (3.5-5.1); Sodium 133 mEq/L (136-145); eGFR For African Americans > 60 (> 60); eGFR For Non-African Americans 51 (> 60)
[2019-06-19 23:45] LABS: Troponin I 0.03 ng/mL (< 0.04)
[2019-06-19 23:51] LABS: Eosinophils # 0.5 K/mcL (0.0-0.6); Lymphocytes # 4.5 K/mcL (0.6-4.6); Neutrophils # 18.9 K/mcL (1.6-8.9)
[2019-06-19 23:52] LABS: Platelet Estimate Marked Increase (Normal)
[2019-06-19 23:53] LABS: Anisocytosis 1+ (Not Present); Macrocytosis Present (Not Present)
[2019-06-20] MEDS: Sildenafil Citrate 20 MG TABLET PO SCH (00:01)
[2019-06-20] MEDS: *HR* Heparin 5,000 UNIT/ML VIAL SQ SCH ×2 (06:30→17:34)
[2019-06-20] MEDS: Pantoprazole 40 MG VIAL IVP SCH ×2 (06:30→17:34)
[2019-06-20 07:05] LABS: Basophils # 0.1 K/mcL (0.0-0.2); Basophils % 0.3 %; Eosinophils # 0.3 K/mcL (0.0-0.6); Eosinophils % 1.3 %; Hematocrit 30.7 % (37.5-50.1); Hemoglobin 9.4 g/dL (12.9-16.9); Immature Granulocytes % 3.1 % (0-4); Lymphocytes # 2.3 K/mcL (0.6-4.6); Lymphocytes % 9.2 %; Mean Corpuscular HGB Conc 30.6 g/dL (31.6-35.5); Mean Corpuscular Hemoglobin 23.9 pg (28.0-33.3); Mean Corpuscular Volume 78.1 fL (83.0-100.0); Mean Platelet Volume 9.6 fL (9.4-12.4); Monocytes # 1.3 K/mcL (0.0-1.3); Monocytes % 5.2 %; Neutrophils # 19.8 K/mcL (1.6-8.9); Platelet Count 708 K/mcL (140-400); Red Blood Count 3.93 M/mcL (4.19-5.50); Segmented Neutrophils % 80.9 %; White Blood Count 24.5 K/mcL (4.3-11.1)
[2019-06-20 07:09] LABS: Calcium 8.2 mg/dL (8.6-10.3); Potassium 4.1 mEq/L (3.5-5.1)
[2019-06-20] MEDS ORDERED: *HR* OxyCODONE/APAP 7.5/325 TABLET PO PRN (08:28)
[2019-06-20] MEDS: levoFLOXacin 750 MG/150 ML 750 MG/150 ML BAG IVPB SCH (09:13)
[2019-06-20] MEDS: Silvasorb 44.4 ML TUBE TP SCH (09:14)
[2019-06-20] MEDS: *HR* OxyCODONE Immed Rel 5 MG TABLET PO PRN ×3 (10:52→23:55)
[2019-06-20] MEDS: Orphenadrine 100 MG TABLET.ER PO PRN (17:41)
[2019-06-21] MEDS: Orphenadrine 100 MG TABLET.ER PO PRN ×2 (06:01→19:01)
[2019-06-21] MEDS: *HR* OxyCODONE Immed Rel 5 MG TABLET PO PRN ×3 (06:01→17:26)
[2019-06-21] MEDS: *HR* Heparin 5,000 UNIT/ML VIAL SQ SCH ×2 (06:01→17:26)
[2019-06-21] MEDS: Pantoprazole 40 MG VIAL IVP SCH (06:02)
[2019-06-21] MEDS: Silvasorb 44.4 ML TUBE TP SCH (08:44)
[2019-06-21 09:00] LABS: Basophils % 0.2 %; Eosinophils # 0.4 K/mcL (0.0-0.6); Eosinophils % 2.4 %; Hematocrit 27.3 % (37.5-50.1); Hemoglobin 8.5 g/dL (12.9-16.9); Immature Granulocytes % 1.6 % (0-4); Lymphocytes % 12.1 %; Mean Corpuscular HGB Conc 31.1 g/dL (31.6-35.5); Mean Corpuscular Hemoglobin 23.9 pg (28.0-33.3); Mean Corpuscular Volume 76.9 fL (83.0-100.0); Mean Platelet Volume 8.5 fL (9.4-12.4); Monocytes # 1.3 K/mcL (0.0-1.3); Monocytes % 7.7 %; Neutrophils # 12.5 K/mcL (1.6-8.9); Platelet Count 660 K/mcL (140-400); Red Blood Count 3.55 M/mcL (4.19-5.50); Red Cell Distribution Width 15.9 % (11.5-14.5); White Blood Count 16.4 K/mcL (4.3-11.1)
[2019-06-21 09:48] LABS: Calcium 8.1 mg/dL (8.6-10.3); Potassium 3.8 mEq/L (3.5-5.1)
[2019-06-21 10:16] LABS: Ferritin 41 ng/mL (20-250); Iron < 10 mcg/dL (65-175); Transferrin 207 mg/dL (203-362)
[2019-06-21] MEDS ORDERED: Cyanocobalamin (B-12) 1,000 MCG/ML VIAL IM ONE (11:38)
[2019-06-21] MEDS ORDERED: 0.9 % Sodium Chloride 1,000 ML IVC SCH (12:30)
[2019-06-21] MEDS: Sildenafil Citrate 20 MG TABLET PO SCH ×2 (14:32→22:03)
[2019-06-22] MEDS: *HR* OxyCODONE Immed Rel 5 MG TABLET PO PRN ×4 (00:07→18:07)
[2019-06-22] MEDS: *HR* Heparin 5,000 UNIT/ML VIAL SQ SCH ×2 (05:35→17:18)
[2019-06-22 06:41] LABS: Basophils % 0.2 %; Eosinophils # 0.3 K/mcL (0.0-0.6); Eosinophils % 2.3 %; Hemoglobin 8.4 g/dL (12.9-16.9); Lymphocytes # 1.5 K/mcL (0.6-4.6); Lymphocytes % 12.1 %; Mean Corpuscular HGB Conc 31.1 g/dL (31.6-35.5); Mean Corpuscular Hemoglobin 24.2 pg (28.0-33.3); Mean Corpuscular Volume 77.8 fL (83.0-100.0); Mean Platelet Volume 8.7 fL (9.4-12.4); Monocytes # 0.8 K/mcL (0.0-1.3); Monocytes % 6.9 %; Neutrophils # 9.3 K/mcL (1.6-8.9); Platelet Count 671 K/mcL (140-400); Red Blood Count 3.47 M/mcL (4.19-5.50); Red Cell Distribution Width 16.1 % (11.5-14.5); Segmented Neutrophils % 77.5 %
[2019-06-22 06:59] LABS: BUN/Creatinine Ratio 18 (6-26); Blood Urea Nitrogen 24 mg/dL (6-20); Carbon Dioxide 21 mEq/L (23-29); Chloride 100 mEq/L (98-107); Glucose 117 mg/dL (70-105); Osmolality,Calculated 269 (280-300); Potassium 3.9 mEq/L (3.5-5.1); Sodium 127 mEq/L (136-145); eGFR For African Americans > 60 (> 60); eGFR For Non-African Americans 56 (> 60)
[2019-06-22] MEDS: Sildenafil Citrate 20 MG TABLET PO SCH ×3 (08:55→21:01)
[2019-06-22] MEDS: Orphenadrine 100 MG TABLET.ER PO PRN ×2 (08:55→21:01)
[2019-06-22] MEDS: Silvasorb 44.4 ML TUBE TP SCH (08:57)
[2019-06-22] MEDS ORDERED: levoFLOXacin 750 MG/150 ML 750 MG/150 ML BAG IVPB SCH (09:00)
[2019-06-22] MEDS ORDERED: 0.9 % Sodium Chloride 1,000 ML IVC SCH (17:15)
[2019-06-22 18:06] LABS: Total Protein,Pleural Fluid 4.6 g/dL
[2019-06-22 20:55] LABS: RBC,Pleural Fluid 0.006 M/mcL
[2019-06-22 21:00] LABS: Basophils,Pleural Fluid 0 %
[2019-06-22 21:01] LABS: Appearance of Pleural Fl Cloudy (Clear)
[2019-06-23] MEDS: *HR* OxyCODONE Immed Rel 5 MG TABLET PO PRN ×4 (00:10→20:18)
[2019-06-23] MEDS: *HR* Heparin 5,000 UNIT/ML VIAL SQ SCH ×2 (05:39→15:09)
[2019-06-23 06:45] LABS: Basophils % 0.2 %; Eosinophils # 0.2 K/mcL (0.0-0.6); Hematocrit 27.6 % (37.5-50.1); Hemoglobin 8.4 g/dL (12.9-16.9); Immature Granulocytes % 0.6 % (0-4); Lymphocytes # 1.5 K/mcL (0.6-4.6); Lymphocytes % 13.3 %; Mean Corpuscular HGB Conc 30.4 g/dL (31.6-35.5); Mean Corpuscular Hemoglobin 23.5 pg (28.0-33.3); Mean Corpuscular Volume 77.3 fL (83.0-100.0); Mean Platelet Volume 8.8 fL (9.4-12.4); Monocytes % 8.6 %; Neutrophils # 8.6 K/mcL (1.6-8.9); Platelet Count 689 K/mcL (140-400); Red Blood Count 3.57 M/mcL (4.19-5.50); Red Cell Distribution Width 16.5 % (11.5-14.5); Segmented Neutrophils % 75.3 %; White Blood Count 11.5 K/mcL (4.3-11.1)
[2019-06-23 07:07] LABS: BUN/Creatinine Ratio 16 (6-26); Blood Urea Nitrogen 15 mg/dL (6-20); Calcium 8.1 mg/dL (8.6-10.3); Carbon Dioxide 24 mEq/L (23-29); Chloride 100 mEq/L (98-107); Glucose 114 mg/dL (70-105); Osmolality,Calculated 272 (280-300); Potassium 3.9 mEq/L (3.5-5.1); Sodium 130 mEq/L (136-145); eGFR For African Americans > 60 (> 60); eGFR For Non-African Americans > 60 (> 60)
[2019-06-23] MEDS: Sildenafil Citrate 20 MG TABLET PO SCH ×3 (08:55→20:17)
[2019-06-23] MEDS: Silvasorb 44.4 ML TUBE TP SCH (08:56)
[2019-06-23] MEDS: Orphenadrine 100 MG TABLET.ER PO PRN ×2 (08:56→21:34)
[2019-06-23] MEDS: levoFLOXacin 750 MG/150 ML 750 MG/150 ML BAG IVPB SCH (14:19)
[2019-06-24] MEDS: *HR* OxyCODONE Immed Rel 5 MG TABLET PO PRN ×2 (03:10→09:08)
[2019-06-24 05:33] LABS: Basophils % 0.3 %; Eosinophils # 0.2 K/mcL (0.0-0.6); Eosinophils % 1.6 %; Hematocrit 26.5 % (37.5-50.1); Hemoglobin 8.5 g/dL (12.9-16.9); INR 1.1; Immature Granulocytes % 0.6 % (0-4); Lymphocytes # 1.9 K/mcL (0.6-4.6); Lymphocytes % 16.1 %; Mean Corpuscular HGB Conc 32.1 g/dL (31.6-35.5); Mean Corpuscular Hemoglobin 24.3 pg (28.0-33.3); Mean Corpuscular Volume 75.7 fL (83.0-100.0); Mean Platelet Volume 9.2 fL (9.4-12.4); Monocytes # 1.1 K/mcL (0.0-1.3); Monocytes % 9.9 %; Neutrophils # 8.3 K/mcL (1.6-8.9); Platelet Count 698 K/mcL (140-400); Prothrombin Time 12.8 Seconds (9.4-12.1); Red Cell Distribution Width 16.4 % (11.5-14.5); Segmented Neutrophils % 71.5 %; White Blood Count 11.6 K/mcL (4.3-11.1)
[2019-06-24 05:53] LABS: BUN/Creatinine Ratio 11 (6-26); Blood Urea Nitrogen 11 mg/dL (6-20); Calcium 8.1 mg/dL (8.6-10.3); Carbon Dioxide 28 mEq/L (23-29); Chloride 99 mEq/L (98-107); Glucose 101 mg/dL (70-105); Osmolality,Calculated 276 (280-300); Sodium 133 mEq/L (136-145); eGFR For African Americans > 60 (> 60); eGFR For Non-African Americans > 60 (> 60)
[2019-06-24] MEDS: *HR* Heparin 5,000 UNIT/ML VIAL SQ SCH ×2 (05:59→17:01)
[2019-06-24 06:16] LABS: Albumin 2.6 g/dL (3.5-5.7); Albumin/Globulin Ratio 0.7 (1.1-2.2); Bilirubin,Direct 0.1 mg/dL (0.0-0.2); Bilirubin,Indirect 0.1 mg/dL (0.0-1.0); Bilirubin,Total 0.2 mg/dL (0.3-1.0); Total Protein 6.6 g/dL (6.4-8.9)
[2019-06-24] MEDS: Sildenafil Citrate 20 MG TABLET PO SCH ×3 (09:05→20:57)
[2019-06-24] MEDS: levoFLOXacin 750 MG/150 ML 750 MG/150 ML BAG IVPB SCH (09:06)
[2019-06-24] MEDS: Silvasorb 44.4 ML TUBE TP SCH (09:06)
[2019-06-24] MEDS: Orphenadrine 100 MG TABLET.ER PO PRN (09:15)
[2019-06-24] MEDS: *HR* OxyCODONE/APAP 5/325 TABLET PO PRN ×2 (14:05→20:57)
[2019-06-25] MEDS: *HR* OxyCODONE/APAP 5/325 TABLET PO PRN ×3 (03:18→15:47)
[2019-06-25 06:10] LABS: Hematocrit 26.7 % (37.5-50.1); Hemoglobin 8.6 g/dL (12.9-16.9); Mean Corpuscular HGB Conc 32.2 g/dL (31.6-35.5); Mean Corpuscular Hemoglobin 24.2 pg (28.0-33.3); Mean Corpuscular Volume 75.2 fL (83.0-100.0); Mean Platelet Volume 8.5 fL (9.4-12.4); Platelet Count 793 K/mcL (140-400); Red Blood Count 3.55 M/mcL (4.19-5.50); Red Cell Distribution Width 16.3 % (11.5-14.5); White Blood Count 11.6 K/mcL (4.3-11.1)
[2019-06-25 06:30] LABS: Alanine Aminotransferase 74 Units/L (7-52); Albumin 2.7 g/dL (3.5-5.7); Albumin/Globulin Ratio 0.6 (1.1-2.2); Alkaline Phosphatase 57 Units/L (34-104); Aspartate Amino Transferase 96 Units/L (13-39); BUN/Creatinine Ratio 13 (6-26); Bilirubin,Total 0.3 mg/dL (0.3-1.0); Blood Urea Nitrogen 11 mg/dL (6-20); Calcium 8.2 mg/dL (8.6-10.3); Carbon Dioxide 27 mEq/L (23-29); Chloride 101 mEq/L (98-107); Globulin 4.2 g/dL (2.4-3.5); Glucose 103 mg/dL (70-105); Osmolality,Calculated 280 (280-300); Potassium 3.6 mEq/L (3.5-5.1); Sodium 135 mEq/L (136-145); Total Protein 6.9 g/dL (6.4-8.9); eGFR For African Americans > 60 (> 60); eGFR For Non-African Americans > 60 (> 60)
[2019-06-25] MEDS: *HR* Heparin 5,000 UNIT/ML VIAL SQ SCH ×2 (06:49→17:25)
[2019-06-25] MEDS: Sildenafil Citrate 20 MG TABLET PO SCH ×2 (09:34→15:47)
[2019-06-25] MEDS: levoFLOXacin 750 MG/150 ML 750 MG/150 ML BAG IVPB SCH (09:35)
[2019-06-25] MEDS: Orphenadrine 100 MG TABLET.ER PO PRN ×2 (12:42)
[2019-06-25 13:45] VITALS: BP 143/74
[2019-06-25 15:18] LABS: Fluid Source for Triglycerides PLEURAL FLUID; Triglycerides,Body Fluid 54 mg/dL
[2019-06-25] MEDS: Silvasorb 44.4 ML TUBE TP SCH (15:48)
== END 2019-06-25 19:15 | disposition home or self-care (01) | DRG 720 ==
LOC: EMEROOARM 00:32 → CDU 00:32 → 2NNU 04:01 → SUATTDRO 04:38 → 3ANU 06-16 10:26
PROVIDERS: ADMIT Internal Medicine; ATTEND Internal Medicine
PROC: ENDOAPI (2019-06-22 10:00)

== ENCOUNTER 2019-07-20 08:33 | Inpatient (IN) ==
[2019-07-20] MEDS ORDERED: Silver Sulfadiazine 50 GM TUBE TP ONE (09:02)
[2019-07-20 09:58] LABS: INR 1.4; Prothrombin Time 15.8 Seconds (9.4-12.1)
[2019-07-20 10:00] LABS: Activated Partial Thrombo Time 30.1 Seconds (26.0-36.0); Basophils % 0.2 %; Eosinophils % 0.1 %; Hematocrit 21.1 % (37.5-50.1); Hemoglobin 6.5 g/dL (12.9-16.9); Immature Granulocytes % 0.7 % (0-4); Lymphocytes # 1.7 K/mcL (0.6-4.6); Lymphocytes % 8.6 %; Mean Corpuscular HGB Conc 30.8 g/dL (31.6-35.5); Mean Corpuscular Volume 74.8 fL (83.0-100.0); Mean Platelet Volume 8.5 fL (9.4-12.4); Monocytes # 1.8 K/mcL (0.0-1.3); Monocytes % 9.4 %; Neutrophils # 15.6 K/mcL (1.6-8.9); Platelet Count 616 K/mcL (140-400); Red Blood Count 2.82 M/mcL (4.19-5.50); Red Cell Distribution Width 15.9 % (11.5-14.5); White Blood Count 19.3 K/mcL (4.3-11.1)
[2019-07-20 10:19] LABS: BUN/Creatinine Ratio 24 (6-26); Blood Urea Nitrogen 28 mg/dL (6-20); Calcium 8.2 mg/dL (8.6-10.3); Carbon Dioxide 22 mEq/L (23-29); Chloride 93 mEq/L (98-107); Glucose 133 mg/dL (70-105); Osmolality,Calculated 271 (280-300); Potassium 3.8 mEq/L (3.5-5.1); Sodium 127 mEq/L (136-145); eGFR For African Americans > 60 (> 60); eGFR For Non-African Americans > 60 (> 60)
[2019-07-20] MEDS ORDERED: 0.9 % Sodium Chloride 1,000 ML IVC ONE (10:46)
[2019-07-20 11:21] LABS: Troponin I 0.06 ng/mL (< 0.04)
[2019-07-20 11:26] LABS: Albumin 2.8 g/dL (3.5-5.7); Albumin/Globulin Ratio 0.7 (1.1-2.2); Bilirubin,Direct 0.1 mg/dL (0.0-0.2); Bilirubin,Indirect 0.3 mg/dL (0.0-1.0); Bilirubin,Total 0.4 mg/dL (0.3-1.0); Globulin 3.8 g/dL (2.4-3.5); Total Protein 6.6 g/dL (6.4-8.9)
[2019-07-20] MEDS ORDERED: levoFLOXacin 750 MG/150 ML 750 MG/150 ML BAG IVPB ONE (11:43)
[2019-07-20] MEDS ORDERED: Aspirin 81 MG TAB.CHEW PO ONE (11:45)
[2019-07-20] MEDS ORDERED: Isovue-370 500 ML BOTTLE IVP ONE (12:24)
[2019-07-20] MEDS ORDERED: Naloxone 0.4 MG/ML INJ IVP PRN (12:59)
[2019-07-20 13:06] LABS: Bilirubin,Urine Negative (Negative); Blood,Urine Large (Negative); Color,Urine Yellow (Yellow); Glucose,Urine (UA) Normal (Normal); Ketones,Urine Negative (Negative); Leukocyte Esterase,Urine Negative (Negative); Nitrite,Urine Negative (Negative); PH,Urine 5.5 pH Units (5.0-8.0); Protein,Urine 30 mg/dL (Neg-Trace); Specific Gravity,Urine 1.024 (1.010-1.025); Urobilinogen,Urine Normal (Normal)
[2019-07-20 13:08] LABS: Bacteria,Urine None Seen per hpf (None-Few); Hyaline Casts,Urine None Seen per lpf (None-Few); RBC,Urine 0-3 per hpf (0-3); Squamous Epithelial Cell,Urine Few per lpf (None-Few)
[2019-07-20 13:09] LABS: Clarity,Urine Slightly Cloudy (Clear)
[2019-07-20 13:21] LABS: Amphetamine Screen,Urine Positive ng/mL (Cutoff=1000); Barbiturate Screen,Urine Negative ng/mL (Cutoff=200); Benzodiazepines Screen,Urine Negative ng/mL (Cutoff=200); Cannabinoid Screen,Urine Positive ng/mL (Cutoff = 50); Cocaine Screen,Urine Negative ng/mL (Cutoff= 300); Opiate Screen,Urine Negative ng/mL (Cutoff=300); Phencyclidine Screen,Urine Negative ng/mL (Cutoff=25)
[2019-07-20] MEDS ORDERED: *HR* OxyCODONE/APAP 5/325 TABLET PO ONE (15:06)
[2019-07-20] MEDS ORDERED: *HR* OxyCODONE/APAP 7.5/325 TABLET PO PRN (17:42)
[2019-07-20] MEDS ORDERED: 0.9 % Sodium Chloride 250 ML ONE (17:55)
[2019-07-20] MEDS: tiZANidine 4 MG TABLET PO SCH (21:32)
[2019-07-20] MEDS: Sildenafil Citrate 20 MG TABLET PO SCH (21:32)
[2019-07-20] MEDS: *HR* Heparin 5,000 UNIT/ML VIAL SQ SCH (21:41)
[2019-07-21] MEDS: Sildenafil Citrate 20 MG TABLET PO SCH ×5 (00:06→21:02)
[2019-07-21 04:42] LABS: Basophils % 0.3 %; Eosinophils # 0.3 K/mcL (0.0-0.6); Eosinophils % 2.6 %; Hematocrit 23.2 % (37.5-50.1); Hemoglobin 7.5 g/dL (12.9-16.9); Immature Granulocytes % 0.4 % (0-4); Lymphocytes # 2.2 K/mcL (0.6-4.6); Lymphocytes % 18.8 %; Mean Corpuscular HGB Conc 32.3 g/dL (31.6-35.5); Mean Corpuscular Volume 74.4 fL (83.0-100.0); Mean Platelet Volume 8.5 fL (9.4-12.4); Monocytes # 1.2 K/mcL (0.0-1.3); Monocytes % 10.8 %; Neutrophils # 7.7 K/mcL (1.6-8.9); Platelet Count 602 K/mcL (140-400); Red Blood Count 3.12 M/mcL (4.19-5.50); Red Cell Distribution Width 16.3 % (11.5-14.5); Segmented Neutrophils % 67.1 %; White Blood Count 11.5 K/mcL (4.3-11.1)
[2019-07-21 05:01] LABS: BUN/Creatinine Ratio 26 (6-26); Blood Urea Nitrogen 19 mg/dL (6-20); Calcium 7.8 mg/dL (8.6-10.3); Carbon Dioxide 23 mEq/L (23-29); Chloride 96 mEq/L (98-107); Glucose 118 mg/dL (70-105); Osmolality,Calculated 265 (280-300); Potassium 4.1 mEq/L (3.5-5.1); Sodium 126 mEq/L (136-145); eGFR For African Americans > 60 (> 60); eGFR For Non-African Americans > 60 (> 60)
[2019-07-21] MEDS: *HR* Heparin 5,000 UNIT/ML VIAL SQ SCH ×3 (05:42→21:03)
[2019-07-21] MEDS: levoFLOXacin 750 MG/150 ML 750 MG/150 ML BAG IVPB SCH (08:01)
[2019-07-21] MEDS: tiZANidine 4 MG TABLET PO SCH ×3 (08:01→21:02)
[2019-07-21 10:57] LABS: Acinetobacter baumannii by PCR Not Detected (Not Detect); Candida albicans by PCR Not Detected (Not Detect); Candida glabrata by PCR Not Detected (Not Detect); Candida krusei by PCR Not Detected (Not Detect); Candida parapsilosis by PCR Not Detected (Not Detect); Candida tropicalis by PCR Not Detected (Not Detect); Enterobacter cloacae Cmplx PCR Not Detected (Not Detect); Enterobacteriaceae by PCR Not Detected (Not Detect); Enterococcus by PCR Not Detected (Not Detect); Escherichia coli by PCR Not Detected (Not Detect); Klebsiella oxytoca by PCR Not Detected (Not Detect); Klebsiella pneumoniae by PCR Not Detected (Not Detect); Proteus by PCR Not Detected (Not Detect); Pseudomonas aeruginosa by PCR Not Detected (Not Detect); Serratia marcescens by PCR Not Detected (Not Detect); Staphylococcus aureus by PCR DETECTED (Not Detect); Streptococcus agalactiae(B)PCR Not Detected (Not Detect); Streptococcus by PCR Not Detected (Not Detect); Streptococcus pneumoniae PCR Not Detected (Not Detect); Streptococcus pyogenes (A) PCR Not Detected (Not Detect); mecA Methicillin-Resist Gene DETECTED (Not Detect)
[2019-07-21] MEDS: 0.9 % Sodium Chloride 1,000 ML IVC SCH (13:18)
[2019-07-21] MEDS: *HR* OxyCODONE/APAP 10/325 TABLET PO PRN ×2 (14:10→21:02)
[2019-07-21] MEDS: Silvasorb 44.4 ML TUBE TP SCH (15:09)
[2019-07-21] MEDS: hydrOXYzine pamoate 25 MG CAPSULE PO PRN (15:09)
[2019-07-22] MEDS: Sildenafil Citrate 20 MG TABLET PO SCH ×5 (00:05→20:21)
[2019-07-22] MEDS: 0.9 % Sodium Chloride 1,000 ML IVC SCH ×2 (04:08→15:34)
[2019-07-22 05:22] LABS: Basophils % 0.4 %; Eosinophils # 0.2 K/mcL (0.0-0.6); Hematocrit 21.9 % (37.5-50.1); Hemoglobin 6.7 g/dL (12.9-16.9); Immature Granulocytes % 0.4 % (0-4); Lymphocytes # 1.6 K/mcL (0.6-4.6); Lymphocytes % 20.6 %; Mean Corpuscular HGB Conc 30.6 g/dL (31.6-35.5); Mean Corpuscular Hemoglobin 23.6 pg (28.0-33.3); Mean Corpuscular Volume 77.1 fL (83.0-100.0); Mean Platelet Volume 8.6 fL (9.4-12.4); Monocytes # 0.8 K/mcL (0.0-1.3); Neutrophils # 4.9 K/mcL (1.6-8.9); Platelet Count 546 K/mcL (140-400); Red Blood Count 2.84 M/mcL (4.19-5.50); Red Cell Distribution Width 16.7 % (11.5-14.5); Segmented Neutrophils % 64.6 %; White Blood Count 7.6 K/mcL (4.3-11.1)
[2019-07-22 05:41] LABS: BUN/Creatinine Ratio 16 (6-26); Blood Urea Nitrogen 12 mg/dL (6-20); Calcium 7.7 mg/dL (8.6-10.3); Carbon Dioxide 26 mEq/L (23-29); Chloride 107 mEq/L (98-107); Glucose 116 mg/dL (70-105); Osmolality,Calculated 287 (280-300); Potassium 3.7 mEq/L (3.5-5.1); Sodium 138 mEq/L (136-145); eGFR For African Americans > 60 (> 60); eGFR For Non-African Americans > 60 (> 60)
[2019-07-22] MEDS: *HR* Heparin 5,000 UNIT/ML VIAL SQ SCH (06:05)
[2019-07-22] MEDS ORDERED: 0.9 % Sodium Chloride 250 ML ONE (07:58)
[2019-07-22] MEDS: Silvasorb 44.4 ML TUBE TP SCH ×2 (08:26→13:13)
[2019-07-22] MEDS: tiZANidine 4 MG TABLET PO SCH ×3 (08:26→20:21)
[2019-07-22] MEDS ORDERED: 0.9 % Sodium Chloride 500 ML IV ONE (10:48)
[2019-07-22] MEDS: levoFLOXacin 750 MG/150 ML 750 MG/150 ML BAG IVPB SCH (11:03)
[2019-07-22] MEDS: *HR* OxyCODONE/APAP 10/325 TABLET PO PRN ×2 (11:28→18:41)
[2019-07-22] MEDS ORDERED: SODIUM CHLORIDE/NAHCO3/KCL/PEG 4,000 ML SOLN.RECON PO ONE (17:00)
[2019-07-23] MEDS ORDERED: Acetaminophen IV 1,000 MG/100 ML INFUS..BTL IVPB ONE (00:12)
[2019-07-23 00:47] LABS: Hematocrit 23.3 % (37.5-50.1); Hemoglobin 7.4 g/dL (12.9-16.9)
[2019-07-23] MEDS: *HR* OxyCODONE/APAP 10/325 TABLET PO PRN ×4 (03:46→23:15)
[2019-07-23 03:53] LABS: Basophils % 0.5 %; Eosinophils # 0.3 K/mcL (0.0-0.6); Eosinophils % 4.1 %; Hematocrit 24.1 % (37.5-50.1); Hemoglobin 7.6 g/dL (12.9-16.9); Immature Granulocytes % 0.3 % (0-4); Lymphocytes # 1.5 K/mcL (0.6-4.6); Lymphocytes % 23.7 %; Mean Corpuscular HGB Conc 31.5 g/dL (31.6-35.5); Mean Corpuscular Hemoglobin 24.7 pg (28.0-33.3); Mean Corpuscular Volume 78.2 fL (83.0-100.0); Mean Platelet Volume 8.5 fL (9.4-12.4); Monocytes # 0.5 K/mcL (0.0-1.3); Monocytes % 7.9 %; Platelet Count 512 K/mcL (140-400); Red Blood Count 3.08 M/mcL (4.19-5.50); Red Cell Distribution Width 17.2 % (11.5-14.5); Segmented Neutrophils % 63.5 %; White Blood Count 6.4 K/mcL (4.3-11.1)
[2019-07-23 04:11] LABS: BUN/Creatinine Ratio 13 (6-26); Blood Urea Nitrogen 10 mg/dL (6-20); Calcium 7.7 mg/dL (8.6-10.3); Carbon Dioxide 24 mEq/L (23-29); Chloride 105 mEq/L (98-107); Glucose 114 mg/dL (70-105); Osmolality,Calculated 280 (280-300); Potassium 3.8 mEq/L (3.5-5.1); Sodium 135 mEq/L (136-145); eGFR For African Americans > 60 (> 60); eGFR For Non-African Americans > 60 (> 60)
[2019-07-23] MEDS: tiZANidine 4 MG TABLET PO SCH ×4 (08:22→22:00)
[2019-07-23] MEDS: Sildenafil Citrate 20 MG TABLET PO SCH ×4 (08:22→22:01)
[2019-07-23] MEDS ORDERED: *HR* Propofol 200 MG/20 ML VIAL IVP ONE (08:22)
[2019-07-23] MEDS: levoFLOXacin 750 MG/150 ML 750 MG/150 ML BAG IVPB SCH (08:35)
[2019-07-23] MEDS: 0.9 % Sodium Chloride 1,000 ML IVC SCH ×2 (08:37→15:23)
[2019-07-23] MEDS: Silvasorb 44.4 ML TUBE TP SCH (08:38)
[2019-07-23] MEDS ORDERED: Ondansetron 4 MG/2 ML VIAL ONE (08:54)
[2019-07-23] MEDS ORDERED: Ketorolac 30 MG/ML VIAL ONE (08:54)
[2019-07-23] MEDS ORDERED: Dexamethasone 4 MG/ML VIAL ONE (08:54)
[2019-07-23] MEDS: Sucralfate 1 GM TABLET PO SCH ×2 (15:19→22:00)
[2019-07-23] MEDS: hydrOXYzine pamoate 25 MG CAPSULE PO PRN (23:19)
[2019-07-24] MEDS: *HR* OxyCODONE/APAP 10/325 TABLET PO PRN ×3 (06:13→18:42)
[2019-07-24] MEDS: hydrOXYzine pamoate 25 MG CAPSULE PO PRN ×3 (06:14→21:40)
[2019-07-24] MEDS: 0.9 % Sodium Chloride 1,000 ML IVC SCH ×3 (06:14→23:53)
[2019-07-24] MEDS: Sucralfate 1 GM TABLET PO SCH ×4 (06:14→21:40)
[2019-07-24 06:41] LABS: Basophils % 0.2 %; Eosinophils % 0.2 %; Immature Granulocytes % 0.6 % (0-4); Lymphocytes # 1.4 K/mcL (0.6-4.6); Lymphocytes % 13.7 %; Mean Corpuscular HGB Conc 30.8 g/dL (31.6-35.5); Mean Corpuscular Hemoglobin 24.3 pg (28.0-33.3); Mean Platelet Volume 8.6 fL (9.4-12.4); Monocytes # 0.8 K/mcL (0.0-1.3); Monocytes % 7.5 %; Neutrophils # 8.2 K/mcL (1.6-8.9); Platelet Count 562 K/mcL (140-400); Red Blood Count 3.29 M/mcL (4.19-5.50); Red Cell Distribution Width 17.2 % (11.5-14.5); Segmented Neutrophils % 77.8 %; White Blood Count 10.5 K/mcL (4.3-11.1)
[2019-07-24 07:00] LABS: BUN/Creatinine Ratio 19 (6-26); Blood Urea Nitrogen 15 mg/dL (6-20); Calcium 8.5 mg/dL (8.6-10.3); Carbon Dioxide 26 mEq/L (23-29); Chloride 106 mEq/L (98-107); Glucose 109 mg/dL (70-105); Osmolality,Calculated 281 (280-300); Potassium 4.2 mEq/L (3.5-5.1); Sodium 135 mEq/L (136-145); eGFR For African Americans > 60 (> 60); eGFR For Non-African Americans > 60 (> 60)
[2019-07-24 07:54] LABS: HCV Quant Interpretation DETECTED (Not Detected); HCV Quant Log 5.55 log IU/mL
[2019-07-24] MEDS: Sildenafil Citrate 20 MG TABLET PO SCH ×3 (09:48→21:40)
[2019-07-24] MEDS: levoFLOXacin 750 MG/150 ML 750 MG/150 ML BAG IVPB SCH (09:48)
[2019-07-24] MEDS: tiZANidine 4 MG TABLET PO SCH ×3 (09:48→21:40)
[2019-07-24] MEDS: Silvasorb 44.4 ML TUBE TP SCH (09:49)
[2019-07-25 00:39] LABS: Basophils % 0.3 %; Eosinophils # 0.3 K/mcL (0.0-0.6); Eosinophils % 2.3 %; Hematocrit 27.4 % (37.5-50.1); Hemoglobin 8.9 g/dL (12.9-16.9); Immature Granulocytes % 0.5 % (0-4); Lymphocytes # 2.3 K/mcL (0.6-4.6); Lymphocytes % 20.6 %; Mean Corpuscular HGB Conc 32.5 g/dL (31.6-35.5); Mean Corpuscular Hemoglobin 26.1 pg (28.0-33.3); Mean Corpuscular Volume 80.4 fL (83.0-100.0); Mean Platelet Volume 8.9 fL (9.4-12.4); Monocytes # 0.9 K/mcL (0.0-1.3); Monocytes % 8.5 %; Neutrophils # 7.5 K/mcL (1.6-8.9); Platelet Count 621 K/mcL (140-400); Red Blood Count 3.41 M/mcL (4.19-5.50); Red Cell Distribution Width 17.6 % (11.5-14.5); Segmented Neutrophils % 67.8 %; White Blood Count 11.1 K/mcL (4.3-11.1)
[2019-07-25 01:00] LABS: BUN/Creatinine Ratio 16 (6-26); Blood Urea Nitrogen 13 mg/dL (6-20); Calcium 8.1 mg/dL (8.6-10.3); Carbon Dioxide 24 mEq/L (23-29); Chloride 108 mEq/L (98-107); Glucose 96 mg/dL (70-105); Osmolality,Calculated 284 (280-300); Potassium 3.4 mEq/L (3.5-5.1); Sodium 137 mEq/L (136-145); eGFR For African Americans > 60 (> 60); eGFR For Non-African Americans > 60 (> 60)
[2019-07-25] MEDS: *HR* OxyCODONE/APAP 10/325 TABLET PO PRN ×4 (01:04→19:22)
[2019-07-25] MEDS: Sucralfate 1 GM TABLET PO SCH ×4 (08:55→21:54)
[2019-07-25] MEDS: Sildenafil Citrate 20 MG TABLET PO SCH ×3 (08:55→21:54)
[2019-07-25] MEDS: tiZANidine 4 MG TABLET PO SCH ×3 (08:55→21:53)
[2019-07-25] MEDS: levoFLOXacin 750 MG/150 ML 750 MG/150 ML BAG IVPB SCH (08:56)
[2019-07-25] MEDS: hydrOXYzine pamoate 25 MG CAPSULE PO PRN ×2 (08:59→15:48)
[2019-07-25] MEDS: Silvasorb 44.4 ML TUBE TP SCH (14:00)
[2019-07-26] MEDS: hydrOXYzine pamoate 25 MG CAPSULE PO PRN ×3 (01:29→20:33)
[2019-07-26] MEDS: *HR* OxyCODONE/APAP 10/325 TABLET PO PRN ×4 (01:55→20:33)
[2019-07-26 04:43] LABS: Basophils % 0.3 %; Eosinophils # 0.5 K/mcL (0.0-0.6); Eosinophils % 5.8 %; Hematocrit 27.6 % (37.5-50.1); Hemoglobin 8.4 g/dL (12.9-16.9); Immature Granulocytes % 0.7 % (0-4); Lymphocytes # 2.3 K/mcL (0.6-4.6); Lymphocytes % 25.5 %; Mean Corpuscular HGB Conc 30.4 g/dL (31.6-35.5); Mean Corpuscular Hemoglobin 24.4 pg (28.0-33.3); Mean Corpuscular Volume 80.2 fL (83.0-100.0); Mean Platelet Volume 8.9 fL (9.4-12.4); Monocytes # 0.9 K/mcL (0.0-1.3); Monocytes % 9.7 %; Neutrophils # 5.2 K/mcL (1.6-8.9); Platelet Count 567 K/mcL (140-400); Red Blood Count 3.44 M/mcL (4.19-5.50)
[2019-07-26 05:01] LABS: BUN/Creatinine Ratio 20 (6-26); Blood Urea Nitrogen 15 mg/dL (6-20); Calcium 8.1 mg/dL (8.6-10.3); Carbon Dioxide 24 mEq/L (23-29); Chloride 106 mEq/L (98-107); Glucose 91 mg/dL (70-105); Osmolality,Calculated 284 (280-300); Potassium 3.8 mEq/L (3.5-5.1); Sodium 137 mEq/L (136-145); eGFR For African Americans > 60 (> 60); eGFR For Non-African Americans > 60 (> 60)
[2019-07-26] MEDS: 0.9 % Sodium Chloride 1,000 ML IVC SCH ×3 (06:02→11:42)
[2019-07-26] MEDS: Sucralfate 1 GM TABLET PO SCH ×4 (06:04→20:32)
[2019-07-26] MEDS: tiZANidine 4 MG TABLET PO SCH ×3 (08:04→20:32)
[2019-07-26] MEDS: Sildenafil Citrate 20 MG TABLET PO SCH ×3 (08:04→20:32)
[2019-07-26] MEDS: Silvasorb 44.4 ML TUBE TP SCH (08:06)
[2019-07-26] MEDS: levoFLOXacin 750 MG/150 ML 750 MG/150 ML BAG IVPB SCH (08:06)
[2019-07-27] MEDS: 0.9 % Sodium Chloride 1,000 ML IVC SCH ×2 (00:54→02:33)
[2019-07-27] MEDS: *HR* OxyCODONE/APAP 10/325 TABLET PO PRN ×3 (02:33→14:29)
[2019-07-27] MEDS: hydrOXYzine pamoate 25 MG CAPSULE PO PRN ×3 (02:37→14:32)
[2019-07-27] MEDS: Sucralfate 1 GM TABLET PO SCH ×2 (08:28→13:38)
[2019-07-27] MEDS: tiZANidine 4 MG TABLET PO SCH ×2 (08:28→14:29)
[2019-07-27] MEDS: levoFLOXacin 750 MG/150 ML 750 MG/150 ML BAG IVPB SCH (08:28)
[2019-07-27] MEDS: Sildenafil Citrate 20 MG TABLET PO SCH ×2 (08:29→14:29)
[2019-07-27] MEDS: Silvasorb 44.4 ML TUBE TP SCH (10:48)
[2019-07-27] MEDS ORDERED: 0.9 % Sodium Chloride 500 ML IV ONE (11:24)
[2019-07-27 14:29] VITALS: BP 160/72
[2019-07-27] MEDS ORDERED: Aminoglycoside Consult 1 EACH MC ONE (16:24)
[2019-07-30 12:02] LABS: HCV Genotype by Sequencing TYPE 4
== END 2019-07-27 16:25 | DRG 720 ==
LOC: 3ANU 08:33 → EMEROOARM 08:33 → SUATTDRO 13:17 → 3ANU 13:33
PROVIDERS: ADMIT Internal Medicine; ATTEND Family Medicine
PROC: ENDOEBX (2019-07-23 09:20)

== ENCOUNTER 2019-10-07 09:08 | Inpatient (IN) ==
[2019-10-07 11:02] LABS: Basophils # 0.1 K/mcL (0.0-0.2); Basophils % 0.7 %; Eosinophils # 0.3 K/mcL (0.0-0.6); Eosinophils % 2.8 %; Hematocrit 28.6 % (37.5-50.1); Hemoglobin 8.7 g/dL (12.9-16.9); Immature Granulocytes % 0.3 % (0-4); Lymphocytes % 19.4 %; Mean Corpuscular HGB Conc 30.4 g/dL (31.6-35.5); Mean Corpuscular Hemoglobin 23.3 pg (28.0-33.3); Mean Corpuscular Volume 76.7 fL (83.0-100.0); Mean Platelet Volume 8.3 fL (9.4-12.4); Monocytes # 0.8 K/mcL (0.0-1.3); Monocytes % 7.9 %; Neutrophils # 7.1 K/mcL (1.6-8.9); Platelet Count 646 K/mcL (140-400); Red Blood Count 3.73 M/mcL (4.19-5.50); Red Cell Distribution Width 16.6 % (11.5-14.5); Segmented Neutrophils % 68.9 %; White Blood Count 10.3 K/mcL (4.3-11.1)
[2019-10-07 11:18] LABS: BUN/Creatinine Ratio 15 (6-26); Blood Urea Nitrogen 14 mg/dL (6-20); C-Reactive Protein 32 mg/L (Less than 10); Calcium 8.3 mg/dL (8.6-10.3); Carbon Dioxide 27 mEq/L (23-29); Chloride 102 mEq/L (98-107); Glucose 107 mg/dL (70-105); Osmolality,Calculated 281 (280-300); Potassium 3.3 mEq/L (3.5-5.1); Sodium 135 mEq/L (136-145); eGFR For African Americans > 60 (> 60); eGFR For Non-African Americans > 60 (> 60)
[2019-10-07] MEDS ORDERED: Naloxone 0.4 MG/ML INJ IVP PRN (12:09)
[2019-10-07] MEDS ORDERED: Mag Hydrox/Al Hydrox/Simeth 30 ML UDC PO PRN (12:15)
[2019-10-07] MEDS ORDERED: Ondansetron ODT 4 MG TAB.RAPDIS SL PRN (12:15)
[2019-10-07] MEDS ORDERED: MOM Conc 10 ML UD.LIQ PO PRN (12:15)
[2019-10-07] MEDS: Acetaminophen 325 MG TABLET PO PRN ×2 (16:05→21:25)
[2019-10-07] MEDS: Silver Sulfadiazine 50 GM TUBE TP SCH (21:20)
[2019-10-08] MEDS: Acetaminophen 325 MG TABLET PO PRN (05:28)
[2019-10-08 06:17] LABS: Hemoglobin 8.6 g/dL (12.9-16.9); Mean Corpuscular HGB Conc 31.9 g/dL (31.6-35.5); Mean Corpuscular Hemoglobin 24.5 pg (28.0-33.3); Mean Corpuscular Volume 76.9 fL (83.0-100.0); Mean Platelet Volume 8.3 fL (9.4-12.4); Platelet Count 617 K/mcL (140-400); Red Blood Count 3.51 M/mcL (4.19-5.50); Red Cell Distribution Width 16.9 % (11.5-14.5); White Blood Count 13.1 K/mcL (4.3-11.1)
[2019-10-08 06:42] LABS: BUN/Creatinine Ratio 17 (6-26); Blood Urea Nitrogen 15 mg/dL (6-20); Calcium 8.6 mg/dL (8.6-10.3); Carbon Dioxide 28 mEq/L (23-29); Chloride 101 mEq/L (98-107); Glucose 106 mg/dL (70-105); Magnesium 1.8 mg/dL (1.6-2.6); Osmolality,Calculated 279 (280-300); Sodium 134 mEq/L (136-145); eGFR For African Americans > 60 (> 60); eGFR For Non-African Americans > 60 (> 60)
[2019-10-08] MEDS: cefTRIAXone 1,000 MG in Water for inj. (sterile) 10 ML IVP SCH (09:15)
[2019-10-08] MEDS: Vancomycin 1,250 MG/262.5 ML IV.SOLN IVPB SCH ×2 (09:20→21:01)
[2019-10-08] MEDS: lisinopriL 10 MG TABLET PO SCH (13:22)
[2019-10-08] MEDS: Silvasorb 44.4 ML TUBE TP SCH ×2 (17:23→18:45)
[2019-10-08] MEDS: Silver Sulfadiazine 50 GM TUBE TP SCH (17:57)
[2019-10-08] MEDS: *HR* Heparin 5,000 UNIT/ML VIAL SQ SCH (18:45)
[2019-10-09] MEDS: *HR* Heparin 5,000 UNIT/ML VIAL SQ SCH ×2 (06:02→17:20)
[2019-10-09 06:37] LABS: Basophils # 0.1 K/mcL (0.0-0.2); Basophils % 0.7 %; Eosinophils # 0.6 K/mcL (0.0-0.6); Eosinophils % 6.3 %; Hematocrit 29.2 % (37.5-50.1); Hemoglobin 8.7 g/dL (12.9-16.9); Immature Granulocytes % 0.5 % (0-4); Lymphocytes # 2.3 K/mcL (0.6-4.6); Lymphocytes % 24.2 %; Mean Corpuscular HGB Conc 29.8 g/dL (31.6-35.5); Mean Corpuscular Hemoglobin 23.1 pg (28.0-33.3); Mean Corpuscular Volume 77.5 fL (83.0-100.0); Mean Platelet Volume 8.4 fL (9.4-12.4); Monocytes % 10.7 %; Neutrophils # 5.5 K/mcL (1.6-8.9); Platelet Count 647 K/mcL (140-400); Red Blood Count 3.77 M/mcL (4.19-5.50); Red Cell Distribution Width 16.6 % (11.5-14.5); Segmented Neutrophils % 57.6 %; White Blood Count 9.6 K/mcL (4.3-11.1)
[2019-10-09 07:54] LABS: % Iron Saturation 3 % (20-55); BUN/Creatinine Ratio 15 (6-26); Blood Urea Nitrogen 12 mg/dL (6-20); Carbon Dioxide 26 mEq/L (23-29); Chloride 99 mEq/L (98-107); Glucose 89 mg/dL (70-105); Iron 11 mcg/dL (65-175); Magnesium 1.9 mg/dL (1.6-2.6); Osmolality,Calculated 273 (280-300); Phosphorous 3.8 mg/dL (2.7-4.5); Potassium 4.5 mEq/L (3.5-5.1); Sodium 132 mEq/L (136-145); Transferrin 301 mg/dL (203-362); eGFR For African Americans > 60 (> 60); eGFR For Non-African Americans > 60 (> 60)
[2019-10-09 08:11] LABS: Ferritin 9 ng/mL (20-250)
[2019-10-09] MEDS: Vancomycin 1,250 MG/262.5 ML IV.SOLN IVPB SCH ×2 (08:11→20:59)
[2019-10-09] MEDS: cefTRIAXone 1,000 MG in Water for inj. (sterile) 10 ML IVP SCH (08:11)
[2019-10-09] MEDS: lisinopriL 10 MG TABLET PO SCH (08:12)
[2019-10-09] MEDS: Silvasorb 44.4 ML TUBE TP SCH (08:15)
[2019-10-10 04:20] LABS: Basophils % 0.5 %; Eosinophils # 0.7 K/mcL (0.0-0.6); Eosinophils % 8.2 %; Hematocrit 27.8 % (37.5-50.1); Hemoglobin 8.3 g/dL (12.9-16.9); Immature Granulocytes % 0.6 % (0-4); Lymphocytes # 2.2 K/mcL (0.6-4.6); Lymphocytes % 26.7 %; Mean Corpuscular HGB Conc 29.9 g/dL (31.6-35.5); Mean Corpuscular Hemoglobin 23.4 pg (28.0-33.3); Mean Corpuscular Volume 78.3 fL (83.0-100.0); Mean Platelet Volume 8.6 fL (9.4-12.4); Monocytes # 0.9 K/mcL (0.0-1.3); Monocytes % 11.3 %; Neutrophils # 4.4 K/mcL (1.6-8.9); Platelet Count 603 K/mcL (140-400); Red Blood Count 3.55 M/mcL (4.19-5.50); Red Cell Distribution Width 16.4 % (11.5-14.5); Segmented Neutrophils % 52.7 %; White Blood Count 8.3 K/mcL (4.3-11.1)
[2019-10-10 04:42] LABS: BUN/Creatinine Ratio 20 (6-26); Blood Urea Nitrogen 16 mg/dL (6-20); Calcium 8.3 mg/dL (8.6-10.3); Carbon Dioxide 28 mEq/L (23-29); Chloride 99 mEq/L (98-107); Glucose 94 mg/dL (70-105); Osmolality,Calculated 275 (280-300); Potassium 4.4 mEq/L (3.5-5.1); Sodium 132 mEq/L (136-145); eGFR For African Americans > 60 (> 60); eGFR For Non-African Americans > 60 (> 60)
[2019-10-10] MEDS: *HR* Heparin 5,000 UNIT/ML VIAL SQ SCH ×2 (05:12→17:10)
[2019-10-10] MEDS: cefTRIAXone 1,000 MG in Water for inj. (sterile) 10 ML IVP SCH (09:07)
[2019-10-10] MEDS: lisinopriL 10 MG TABLET PO SCH (09:07)
[2019-10-10] MEDS: Silvasorb 44.4 ML TUBE TP SCH (09:08)
[2019-10-10] MEDS: Vancomycin 1,250 MG/262.5 ML IV.SOLN IVPB SCH ×2 (09:08→21:46)
[2019-10-11 03:52] LABS: BUN/Creatinine Ratio 22 (6-26); Blood Urea Nitrogen 17 mg/dL (6-20); Calcium 8.3 mg/dL (8.6-10.3); Carbon Dioxide 27 mEq/L (23-29); Chloride 100 mEq/L (98-107); Glucose 129 mg/dL (70-105); Osmolality,Calculated 281 (280-300); Potassium 3.7 mEq/L (3.5-5.1); Sodium 134 mEq/L (136-145); eGFR For African Americans > 60 (> 60); eGFR For Non-African Americans > 60 (> 60)
[2019-10-11] MEDS: *HR* Heparin 5,000 UNIT/ML VIAL SQ SCH (06:20)
[2019-10-11] MEDS: cefTRIAXone 1,000 MG in Water for inj. (sterile) 10 ML IVP SCH (10:27)
[2019-10-11] MEDS: lisinopriL 10 MG TABLET PO SCH (10:27)
[2019-10-11] MEDS: Silvasorb 44.4 ML TUBE TP SCH (10:28)
[2019-10-11] MEDS: Vancomycin 1,250 MG/262.5 ML IV.SOLN IVPB SCH (10:28)
[2019-10-11 11:06] VITALS: BP 129/78
[2019-10-11] MEDS ORDERED: cephALEXin 500 MG CAPSULE PO SCH (17:00)
[2019-10-11] MEDS ORDERED: Doxycycline 100 MG CAPSULE PO SCH (21:00)
== END 2019-10-11 15:47 | DRG 383 ==
LOC: 3BNU 09:08 → EMEROOARM 09:08 → SUATTDRO 12:02 → 3BNU 13:13 → SUATTDRO 10-08 13:40
PROVIDERS: ADMIT Internal Medicine; ATTEND Internal Medicine

== ENCOUNTER 2020-01-29 19:54 | Inpatient (IN) ==
[2020-01-29] MEDS ORDERED: 0.9 % Sodium Chloride 1,000 ML IVC ONE (20:47)
[2020-01-29] MEDS ORDERED: *HR* OxyCODONE/APAP 10/325 TABLET PO ONE (21:16)
[2020-01-29 21:22] LABS: Basophils % 0.2 %; Eosinophils # 0.1 K/mcL (0.0-0.6); Eosinophils % 0.7 %; Hematocrit 37.9 % (37.5-50.1); Hemoglobin 12.6 g/dL (12.9-16.9); Immature Granulocytes % 0.4 % (0-4); Lymphocytes # 1.3 K/mcL (0.6-4.6); Lymphocytes % 7.3 %; Mean Corpuscular HGB Conc 33.2 g/dL (31.6-35.5); Mean Corpuscular Hemoglobin 28.3 pg (28.0-33.3); Mean Corpuscular Volume 85.2 fL (83.0-100.0); Mean Platelet Volume 8.5 fL (9.4-12.4); Monocytes # 1.5 K/mcL (0.0-1.3); Monocytes % 8.4 %; Neutrophils # 14.9 K/mcL (1.6-8.9); Platelet Count 594 K/mcL (140-400); Red Blood Count 4.45 M/mcL (4.19-5.50); Red Cell Distribution Width 13.2 % (11.5-14.5); White Blood Count 17.9 K/mcL (4.3-11.1)
[2020-01-29 21:31] LABS: INR 1.3; Prothrombin Time 14.5 Seconds (9.4-12.1)
[2020-01-29 21:47] LABS: Alanine Aminotransferase 19 Units/L (7-52); Albumin 3.7 g/dL (3.5-5.7); Albumin/Globulin Ratio 0.9 (1.1-2.2); Alkaline Phosphatase 53 Units/L (34-104); Aspartate Amino Transferase 20 Units/L (13-39); BUN/Creatinine Ratio 11 (6-26); Bilirubin,Direct 0.1 mg/dL (0.0-0.2); Bilirubin,Indirect 0.4 mg/dL (0.0-1.0); Bilirubin,Total 0.5 mg/dL (0.3-1.0); Blood Urea Nitrogen 13 mg/dL (6-20); Calcium 8.8 mg/dL (8.6-10.3); Carbon Dioxide 27 mEq/L (23-29); Chloride 97 mEq/L (98-107); Globulin 4.2 g/dL (2.4-3.5); Glucose 85 mg/dL (70-105); Osmolality,Calculated 277 (280-300); Sodium 134 mEq/L (136-145); Total Protein 7.9 g/dL (6.4-8.9); Troponin I < 0.03 ng/mL (< 0.04); eGFR For African Americans > 60 (> 60); eGFR For Non-African Americans > 60 (> 60)
[2020-01-29] MEDS ORDERED: Vancomycin 1,250 MG/262.5 ML IV.SOLN IVPB ONE (22:13)
[2020-01-30] MEDS ORDERED: Ondansetron 4 MG/2 ML VIAL IVP PRN (00:15)
[2020-01-30] MEDS ORDERED: *HR* HYDROcodone/Acet 5/325 mg TABLET PO PRN (00:15)
[2020-01-30] MEDS ORDERED: Acetaminophen 325 MG TABLET PO PRN (00:15)
[2020-01-30] MEDS ORDERED: Naloxone 0.4 MG/ML INJ IVP PRN (00:15)
[2020-01-30] MEDS ORDERED: Ringers Solution, Lactated 2,000 ML IVC ONE (00:24)
[2020-01-30] MEDS ORDERED: Isovue-370 500 ML BOTTLE IVP ONE (00:48)
[2020-01-30] MEDS: hydrOXYzine pamoate 25 MG CAPSULE PO PRN ×2 (00:53→16:52)
[2020-01-30] MEDS: *HR* OxyCODONE Immed Rel 5 MG TABLET PO PRN ×7 (00:53→22:36)
[2020-01-30 01:31] LABS: Basophils % 0.2 %; Eosinophils # 0.2 K/mcL (0.0-0.6); Eosinophils % 1.6 %; Hematocrit 35.7 % (37.5-50.1); Hemoglobin 11.8 g/dL (12.9-16.9); Immature Granulocytes % 0.5 % (0-4); Lymphocytes # 2.6 K/mcL (0.6-4.6); Lymphocytes % 18.1 %; Mean Corpuscular HGB Conc 33.1 g/dL (31.6-35.5); Mean Corpuscular Hemoglobin 28.3 pg (28.0-33.3); Mean Corpuscular Volume 85.6 fL (83.0-100.0); Mean Platelet Volume 8.7 fL (9.4-12.4); Monocytes # 1.1 K/mcL (0.0-1.3); Monocytes % 7.9 %; Neutrophils # 10.2 K/mcL (1.6-8.9); Platelet Count 526 K/mcL (140-400); Red Blood Count 4.17 M/mcL (4.19-5.50); Red Cell Distribution Width 13.4 % (11.5-14.5); Segmented Neutrophils % 71.7 %; White Blood Count 14.3 K/mcL (4.3-11.1)
[2020-01-30 01:51] LABS: BUN/Creatinine Ratio 11 (6-26); Blood Urea Nitrogen 13 mg/dL (6-20); Calcium 8.1 mg/dL (8.6-10.3); Carbon Dioxide 27 mEq/L (23-29); Chloride 100 mEq/L (98-107); Glucose 133 mg/dL (70-105); Osmolality,Calculated 282 (280-300); Potassium 3.2 mEq/L (3.5-5.1); Sodium 135 mEq/L (136-145); eGFR For African Americans > 60 (> 60); eGFR For Non-African Americans > 60 (> 60)
[2020-01-30 03:32] LABS: Bacteria,Urine Few per hpf (None-Few); Bilirubin,Urine Negative (Negative); Blood,Urine Trace (Negative); Clarity,Urine Clear (Clear); Color,Urine Yellow (Yellow); Glucose,Urine (UA) 30 mg/dL (Normal); Hyaline Casts,Urine Moderate per lpf (None Seen); Ketones,Urine Trace mg/dL (Negative); Leukocyte Esterase,Urine Negative (Negative); Mucus,Urine Few per lpf (None-Few); Nitrite,Urine Negative (Negative); PH,Urine 6.5 pH Units (5.0-8.0); Protein,Urine 50 mg/dL (Neg-Trace); Specific Gravity,Urine > 1.030 (1.010-1.025); Urobilinogen,Urine Normal (Normal)
[2020-01-30] MEDS: *HR* Heparin 5,000 UNIT/ML VIAL SQ SCH ×3 (05:04→22:35)
[2020-01-30] MEDS: Vancomycin 1,250 MG/262.5 ML IV.SOLN IVPB SCH ×2 (10:30→22:35)
[2020-01-30] MEDS: Meropenem 1,000 MG in Water for inj. (sterile) 20 ML IVP SCH ×2 (10:30→16:52)
[2020-01-31] MEDS: Meropenem 1,000 MG in Water for inj. (sterile) 20 ML IVP SCH ×3 (00:17→16:23)
[2020-01-31] MEDS: *HR* OxyCODONE Immed Rel 5 MG TABLET PO PRN ×5 (03:04→20:36)
[2020-01-31] MEDS: *HR* Heparin 5,000 UNIT/ML VIAL SQ SCH ×3 (05:21→20:36)
[2020-01-31 10:15] LABS: Basophils % 0.4 %; Eosinophils # 0.5 K/mcL (0.0-0.6); Eosinophils % 8.3 %; Hematocrit 33.7 % (37.5-50.1); Hemoglobin 10.6 g/dL (12.9-16.9); Immature Granulocytes % 0.4 % (0-4); Lymphocytes # 1.8 K/mcL (0.6-4.6); Lymphocytes % 31.2 %; Mean Corpuscular HGB Conc 31.5 g/dL (31.6-35.5); Mean Corpuscular Volume 89.2 fL (83.0-100.0); Mean Platelet Volume 8.9 fL (9.4-12.4); Monocytes # 0.7 K/mcL (0.0-1.3); Monocytes % 13.1 %; Neutrophils # 2.6 K/mcL (1.6-8.9); Platelet Count 434 K/mcL (140-400); Red Blood Count 3.78 M/mcL (4.19-5.50); Red Cell Distribution Width 13.5 % (11.5-14.5); Segmented Neutrophils % 46.6 %
[2020-01-31 10:21] LABS: White Blood Count 5.6 K/mcL (4.3-11.1)
[2020-01-31 10:31] LABS: BUN/Creatinine Ratio 11 (6-26); Blood Urea Nitrogen 11 mg/dL (6-20); Calcium 8.5 mg/dL (8.6-10.3); Carbon Dioxide 29 mEq/L (23-29); Chloride 102 mEq/L (98-107); Glucose 109 mg/dL (70-105); Magnesium 1.6 mg/dL (1.6-2.6); Osmolality,Calculated 282 (280-300); Potassium 4.4 mEq/L (3.5-5.1); Sodium 136 mEq/L (136-145); Vancomycin,Trough 13 mcg/mL (5-10); eGFR For African Americans > 60 (> 60); eGFR For Non-African Americans > 60 (> 60)
[2020-01-31] MEDS: Vancomycin 1,250 MG/262.5 ML IV.SOLN IVPB SCH ×2 (11:54→22:43)
[2020-01-31] MEDS: Silver Sulfadiazine 50 GM TUBE TP SCH (16:31)
[2020-02-01] MEDS: *HR* OxyCODONE Immed Rel 5 MG TABLET PO PRN ×7 (00:50→21:35)
[2020-02-01] MEDS: hydrOXYzine pamoate 25 MG CAPSULE PO PRN (00:50)
[2020-02-01] MEDS: Meropenem 1,000 MG in Water for inj. (sterile) 20 ML IVP SCH ×2 (00:50→09:24)
[2020-02-01 03:05] LABS: Basophils % 0.3 %; Eosinophils # 0.5 K/mcL (0.0-0.6); Eosinophils % 7.7 %; Hematocrit 32.9 % (37.5-50.1); Hemoglobin 10.4 g/dL (12.9-16.9); Immature Granulocytes % 0.2 % (0-4); Lymphocytes # 1.9 K/mcL (0.6-4.6); Lymphocytes % 31.6 %; Mean Corpuscular HGB Conc 31.6 g/dL (31.6-35.5); Mean Corpuscular Volume 88.4 fL (83.0-100.0); Mean Platelet Volume 8.9 fL (9.4-12.4); Monocytes # 0.7 K/mcL (0.0-1.3); Monocytes % 11.3 %; Neutrophils # 2.9 K/mcL (1.6-8.9); Platelet Count 444 K/mcL (140-400); Red Blood Count 3.72 M/mcL (4.19-5.50); Red Cell Distribution Width 13.2 % (11.5-14.5); Segmented Neutrophils % 48.9 %; White Blood Count 5.9 K/mcL (4.3-11.1)
[2020-02-01 03:33] LABS: BUN/Creatinine Ratio 10 (6-26); Blood Urea Nitrogen 10 mg/dL (6-20); Calcium 8.6 mg/dL (8.6-10.3); Carbon Dioxide 29 mEq/L (23-29); Chloride 100 mEq/L (98-107); Glucose 128 mg/dL (70-105); Osmolality,Calculated 281 (280-300); Potassium 3.8 mEq/L (3.5-5.1); Sodium 135 mEq/L (136-145); eGFR For African Americans > 60 (> 60); eGFR For Non-African Americans > 60 (> 60)
[2020-02-01] MEDS: *HR* Heparin 5,000 UNIT/ML VIAL SQ SCH ×3 (05:29→21:35)
[2020-02-01] MEDS ORDERED: Water for inj. (sterile) 20 ML IV ONE (09:03)
[2020-02-01] MEDS: Silver Sulfadiazine 50 GM TUBE TP SCH (10:23)
[2020-02-01] MEDS: Sulfamethoxazole/Trimeth DS 1 EACH TABLET PO SCH ×2 (12:54→21:36)
[2020-02-01] MEDS: cephALEXin 500 MG CAPSULE PO SCH ×2 (13:36→21:36)
[2020-02-02] MEDS: *HR* OxyCODONE Immed Rel 5 MG TABLET PO PRN ×8 (01:47→20:15)
[2020-02-02] MEDS: hydrOXYzine pamoate 25 MG CAPSULE PO PRN ×2 (01:58→14:08)
[2020-02-02] MEDS: *HR* Heparin 5,000 UNIT/ML VIAL SQ SCH ×3 (06:00→20:15)
[2020-02-02 06:10] LABS: Basophils % 0.5 %; Eosinophils # 0.4 K/mcL (0.0-0.6); Eosinophils % 5.4 %; Hematocrit 36.1 % (37.5-50.1); Hemoglobin 11.5 g/dL (12.9-16.9); Immature Granulocytes % 0.3 % (0-4); Lymphocytes # 1.4 K/mcL (0.6-4.6); Lymphocytes % 22.1 %; Mean Corpuscular HGB Conc 31.9 g/dL (31.6-35.5); Mean Corpuscular Volume 87.8 fL (83.0-100.0); Mean Platelet Volume 8.9 fL (9.4-12.4); Monocytes # 0.5 K/mcL (0.0-1.3); Neutrophils # 4.2 K/mcL (1.6-8.9); Platelet Count 497 K/mcL (140-400); Red Blood Count 4.11 M/mcL (4.19-5.50); Red Cell Distribution Width 13.2 % (11.5-14.5); Segmented Neutrophils % 63.7 %; White Blood Count 6.5 K/mcL (4.3-11.1)
[2020-02-02 06:28] LABS: BUN/Creatinine Ratio 16 (6-26); Blood Urea Nitrogen 19 mg/dL (6-20); Calcium 9.6 mg/dL (8.6-10.3); Carbon Dioxide 29 mEq/L (23-29); Chloride 97 mEq/L (98-107); Glucose 138 mg/dL (70-105); Osmolality,Calculated 282 (280-300); Potassium 4.4 mEq/L (3.5-5.1); Sodium 134 mEq/L (136-145); eGFR For African Americans > 60 (> 60); eGFR For Non-African Americans > 60 (> 60)
[2020-02-02] MEDS: Silver Sulfadiazine 50 GM TUBE TP SCH (08:05)
[2020-02-02] MEDS: cephALEXin 500 MG CAPSULE PO SCH ×3 (08:05→20:15)
[2020-02-02] MEDS: Sulfamethoxazole/Trimeth DS 1 EACH TABLET PO SCH ×2 (08:05→20:15)
[2020-02-03] MEDS: *HR* OxyCODONE Immed Rel 5 MG TABLET PO PRN ×6 (00:47→21:37)
[2020-02-03] MEDS: hydrOXYzine pamoate 25 MG CAPSULE PO PRN ×2 (03:27→15:31)
[2020-02-03] MEDS: *HR* Heparin 5,000 UNIT/ML VIAL SQ SCH ×3 (05:22→21:37)
[2020-02-03 05:51] LABS: Basophils % 0.6 %; Eosinophils # 0.4 K/mcL (0.0-0.6); Eosinophils % 5.3 %; Hematocrit 37.5 % (37.5-50.1); Hemoglobin 12.1 g/dL (12.9-16.9); Immature Granulocytes % 0.3 % (0-4); Lymphocytes # 1.8 K/mcL (0.6-4.6); Lymphocytes % 24.5 %; Mean Corpuscular HGB Conc 32.3 g/dL (31.6-35.5); Mean Corpuscular Hemoglobin 28.3 pg (28.0-33.3); Mean Corpuscular Volume 87.8 fL (83.0-100.0); Mean Platelet Volume 8.9 fL (9.4-12.4); Monocytes # 0.8 K/mcL (0.0-1.3); Monocytes % 11.2 %; Neutrophils # 4.2 K/mcL (1.6-8.9); Platelet Count 478 K/mcL (140-400); Red Blood Count 4.27 M/mcL (4.19-5.50); Red Cell Distribution Width 13.3 % (11.5-14.5); Segmented Neutrophils % 58.1 %; White Blood Count 7.2 K/mcL (4.3-11.1)
[2020-02-03 06:04] LABS: BUN/Creatinine Ratio 20 (6-26); Blood Urea Nitrogen 22 mg/dL (6-20); Calcium 9.5 mg/dL (8.6-10.3); Carbon Dioxide 28 mEq/L (23-29); Chloride 98 mEq/L (98-107); Glucose 104 mg/dL (70-105); Magnesium 1.8 mg/dL (1.6-2.6); Osmolality,Calculated 280 (280-300); Potassium 4.3 mEq/L (3.5-5.1); Sodium 133 mEq/L (136-145); eGFR For African Americans > 60 (> 60); eGFR For Non-African Americans > 60 (> 60)
[2020-02-03] MEDS: Sulfamethoxazole/Trimeth DS 1 EACH TABLET PO SCH ×2 (09:36→21:37)
[2020-02-03] MEDS: cephALEXin 500 MG CAPSULE PO SCH ×3 (09:36→21:37)
[2020-02-03] MEDS: Silver Sulfadiazine 50 GM TUBE TP SCH (09:41)
[2020-02-04] MEDS: *HR* OxyCODONE Immed Rel 5 MG TABLET PO PRN ×6 (01:34→22:35)
[2020-02-04] MEDS: *HR* Heparin 5,000 UNIT/ML VIAL SQ SCH ×3 (05:47→20:45)
[2020-02-04] MEDS: cephALEXin 500 MG CAPSULE PO SCH ×3 (08:15→20:45)
[2020-02-04] MEDS: Sulfamethoxazole/Trimeth DS 1 EACH TABLET PO SCH ×2 (08:15→20:45)
[2020-02-04] MEDS: Silver Sulfadiazine 50 GM TUBE TP SCH (08:20)
[2020-02-05 01:03] LABS: Basophils % 0.7 %; Eosinophils # 0.3 K/mcL (0.0-0.6); Eosinophils % 6.4 %; Hematocrit 35.5 % (37.5-50.1); Hemoglobin 11.5 g/dL (12.9-16.9); Immature Granulocytes % 0.4 % (0-4); Lymphocytes # 1.8 K/mcL (0.6-4.6); Lymphocytes % 32.7 %; Mean Corpuscular HGB Conc 32.4 g/dL (31.6-35.5); Mean Corpuscular Hemoglobin 28.6 pg (28.0-33.3); Mean Corpuscular Volume 88.3 fL (83.0-100.0); Mean Platelet Volume 9.1 fL (9.4-12.4); Monocytes # 0.6 K/mcL (0.0-1.3); Neutrophils # 2.6 K/mcL (1.6-8.9); Platelet Count 437 K/mcL (140-400); Red Blood Count 4.02 M/mcL (4.19-5.50); Red Cell Distribution Width 13.1 % (11.5-14.5); Segmented Neutrophils % 47.8 %; White Blood Count 5.4 K/mcL (4.3-11.1)
[2020-02-05 01:21] LABS: BUN/Creatinine Ratio 28 (6-26); Blood Urea Nitrogen 27 mg/dL (6-20); Calcium 8.7 mg/dL (8.6-10.3); Carbon Dioxide 24 mEq/L (23-29); Chloride 102 mEq/L (98-107); Glucose 124 mg/dL (70-105); Osmolality,Calculated 283 (280-300); Potassium 4.3 mEq/L (3.5-5.1); Sodium 133 mEq/L (136-145); eGFR For African Americans > 60 (> 60); eGFR For Non-African Americans > 60 (> 60)
[2020-02-05] MEDS: *HR* OxyCODONE Immed Rel 5 MG TABLET PO PRN ×5 (02:41→22:54)
[2020-02-05] MEDS: hydrOXYzine pamoate 25 MG CAPSULE PO PRN ×2 (02:43→22:54)
[2020-02-05] MEDS: *HR* Heparin 5,000 UNIT/ML VIAL SQ SCH ×3 (05:44→21:12)
[2020-02-05] MEDS: cephALEXin 500 MG CAPSULE PO SCH ×3 (10:40→21:11)
[2020-02-05] MEDS: Sulfamethoxazole/Trimeth DS 1 EACH TABLET PO SCH ×2 (10:40→21:11)
[2020-02-05] MEDS: Silver Sulfadiazine 50 GM TUBE TP SCH (10:43)
[2020-02-06] MEDS: *HR* OxyCODONE Immed Rel 5 MG TABLET PO PRN ×6 (02:51→22:37)
[2020-02-06 04:42] LABS: BUN/Creatinine Ratio 20 (6-26); Blood Urea Nitrogen 20 mg/dL (6-20); Calcium 8.9 mg/dL (8.6-10.3); Carbon Dioxide 25 mEq/L (23-29); Chloride 103 mEq/L (98-107); Glucose 98 mg/dL (70-105); Osmolality,Calculated 281 (280-300); Sodium 134 mEq/L (136-145); eGFR For African Americans > 60 (> 60); eGFR For Non-African Americans > 60 (> 60)
[2020-02-06] MEDS: *HR* Heparin 5,000 UNIT/ML VIAL SQ SCH ×3 (05:31→19:36)
[2020-02-06] MEDS ORDERED: *HR* LORazepam 2 MG/ML VIAL IVP ONE (05:45)
[2020-02-06] MEDS: Sulfamethoxazole/Trimeth DS 1 EACH TABLET PO SCH ×2 (10:19→19:28)
[2020-02-06] MEDS: cephALEXin 500 MG CAPSULE PO SCH ×3 (10:19→19:29)
[2020-02-06] MEDS: Silver Sulfadiazine 50 GM TUBE TP SCH (10:22)
[2020-02-06] MEDS: hydrOXYzine pamoate 25 MG CAPSULE PO PRN (22:37)
[2020-02-07] MEDS ORDERED: *HR* LORazepam 2 MG/ML VIAL IVP ONE (00:17)
[2020-02-07] MEDS: *HR* OxyCODONE Immed Rel 5 MG TABLET PO PRN ×6 (03:26→20:58)
[2020-02-07] MEDS: *HR* Heparin 5,000 UNIT/ML VIAL SQ SCH ×3 (05:32→19:54)
[2020-02-07 06:21] LABS: Basophils % 0.5 %; Eosinophils # 0.4 K/mcL (0.0-0.6); Eosinophils % 6.2 %; Hematocrit 36.6 % (37.5-50.1); Hemoglobin 11.6 g/dL (12.9-16.9); Immature Granulocytes % 0.5 % (0-4); Lymphocytes # 1.8 K/mcL (0.6-4.6); Lymphocytes % 28.7 %; Mean Corpuscular HGB Conc 31.7 g/dL (31.6-35.5); Mean Corpuscular Hemoglobin 27.9 pg (28.0-33.3); Mean Platelet Volume 9.6 fL (9.4-12.4); Monocytes # 0.6 K/mcL (0.0-1.3); Monocytes % 10.3 %; Neutrophils # 3.3 K/mcL (1.6-8.9); Platelet Count 396 K/mcL (140-400); Red Blood Count 4.16 M/mcL (4.19-5.50); Red Cell Distribution Width 13.2 % (11.5-14.5); Segmented Neutrophils % 53.8 %; White Blood Count 6.1 K/mcL (4.3-11.1)
[2020-02-07 06:43] LABS: BUN/Creatinine Ratio 16 (6-26); Blood Urea Nitrogen 17 mg/dL (6-20); Carbon Dioxide 24 mEq/L (23-29); Chloride 103 mEq/L (98-107); Glucose 109 mg/dL (70-105); Osmolality,Calculated 282 (280-300); Potassium 3.6 mEq/L (3.5-5.1); Sodium 135 mEq/L (136-145); eGFR For African Americans > 60 (> 60); eGFR For Non-African Americans > 60 (> 60)
[2020-02-07] MEDS: cephALEXin 500 MG CAPSULE PO SCH ×3 (09:29→19:56)
[2020-02-07] MEDS: Sulfamethoxazole/Trimeth DS 1 EACH TABLET PO SCH ×2 (09:29→19:55)
[2020-02-07] MEDS: Silver Sulfadiazine 50 GM TUBE TP SCH (09:29)
[2020-02-07] MEDS: hydrOXYzine pamoate 25 MG CAPSULE PO PRN ×2 (10:39→22:47)
[2020-02-08] MEDS: *HR* OxyCODONE Immed Rel 5 MG TABLET PO PRN ×5 (01:02→21:10)
[2020-02-08] MEDS: *HR* Heparin 5,000 UNIT/ML VIAL SQ SCH ×3 (05:07→21:10)
[2020-02-08] MEDS: cephALEXin 500 MG CAPSULE PO SCH ×3 (09:44→21:10)
[2020-02-08] MEDS: Silver Sulfadiazine 50 GM TUBE TP SCH (09:44)
[2020-02-08] MEDS: Sulfamethoxazole/Trimeth DS 1 EACH TABLET PO SCH ×2 (09:44→21:10)
[2020-02-09] MEDS: *HR* OxyCODONE Immed Rel 5 MG TABLET PO PRN ×5 (01:23→20:39)
[2020-02-09 04:22] LABS: Basophils % 0.6 %; Eosinophils # 0.4 K/mcL (0.0-0.6); Eosinophils % 6.6 %; Hematocrit 34.7 % (37.5-50.1); Hemoglobin 11.6 g/dL (12.9-16.9); Immature Granulocytes % 0.3 % (0-4); Lymphocytes # 1.8 K/mcL (0.6-4.6); Lymphocytes % 28.1 %; Mean Corpuscular HGB Conc 33.4 g/dL (31.6-35.5); Mean Corpuscular Hemoglobin 29.4 pg (28.0-33.3); Mean Corpuscular Volume 87.8 fL (83.0-100.0); Mean Platelet Volume 9.3 fL (9.4-12.4); Monocytes # 0.7 K/mcL (0.0-1.3); Monocytes % 10.6 %; Neutrophils # 3.4 K/mcL (1.6-8.9); Platelet Count 333 K/mcL (140-400); Red Blood Count 3.95 M/mcL (4.19-5.50); Red Cell Distribution Width 12.9 % (11.5-14.5); Segmented Neutrophils % 53.8 %; White Blood Count 6.3 K/mcL (4.3-11.1)
[2020-02-09 04:41] LABS: BUN/Creatinine Ratio 20 (6-26); Blood Urea Nitrogen 20 mg/dL (6-20); Calcium 8.8 mg/dL (8.6-10.3); Carbon Dioxide 26 mEq/L (23-29); Chloride 104 mEq/L (98-107); Glucose 107 mg/dL (70-105); Osmolality,Calculated 283 (280-300); Potassium 3.8 mEq/L (3.5-5.1); Sodium 135 mEq/L (136-145); eGFR For African Americans > 60 (> 60); eGFR For Non-African Americans > 60 (> 60)
[2020-02-09] MEDS: *HR* Heparin 5,000 UNIT/ML VIAL SQ SCH ×3 (05:24→20:39)
[2020-02-09] MEDS: hydrOXYzine pamoate 25 MG CAPSULE PO PRN (05:30)
[2020-02-09] MEDS: cephALEXin 500 MG CAPSULE PO SCH ×3 (09:35→20:39)
[2020-02-09] MEDS: Sulfamethoxazole/Trimeth DS 1 EACH TABLET PO SCH ×2 (09:35→20:39)
[2020-02-09] MEDS: Silver Sulfadiazine 50 GM TUBE TP SCH (09:36)
[2020-02-10] MEDS: *HR* OxyCODONE Immed Rel 5 MG TABLET PO PRN ×5 (00:50→21:36)
[2020-02-10] MEDS: hydrOXYzine pamoate 25 MG CAPSULE PO PRN ×2 (01:19→21:36)
[2020-02-10] MEDS: *HR* Heparin 5,000 UNIT/ML VIAL SQ SCH ×3 (05:50→21:36)
[2020-02-10] MEDS ORDERED: *HR* LORazepam 1 MG TABLET PO ONE (06:05)
[2020-02-10] MEDS: cephALEXin 500 MG CAPSULE PO SCH ×3 (09:26→21:37)
[2020-02-10] MEDS: Silver Sulfadiazine 50 GM TUBE TP SCH (09:26)
[2020-02-10] MEDS: Sulfamethoxazole/Trimeth DS 1 EACH TABLET PO SCH ×2 (09:26→21:37)
[2020-02-11 01:31] LABS: BUN/Creatinine Ratio 24 (6-26); Blood Urea Nitrogen 22 mg/dL (6-20); Calcium 8.7 mg/dL (8.6-10.3); Carbon Dioxide 24 mEq/L (23-29); Chloride 103 mEq/L (98-107); Glucose 136 mg/dL (70-105); Magnesium 1.7 mg/dL (1.6-2.6); Osmolality,Calculated 285 (280-300); Phosphorous 3.7 mg/dL (2.7-4.5); Potassium 3.9 mEq/L (3.5-5.1); Sodium 135 mEq/L (136-145); eGFR For African Americans > 60 (> 60); eGFR For Non-African Americans > 60 (> 60)
[2020-02-11] MEDS: *HR* OxyCODONE Immed Rel 5 MG TABLET PO PRN ×8 (01:38→23:21)
[2020-02-11] MEDS: *HR* Heparin 5,000 UNIT/ML VIAL SQ SCH ×3 (06:41→23:21)
[2020-02-11] MEDS: hydrOXYzine pamoate 25 MG CAPSULE PO PRN ×2 (07:34→23:21)
[2020-02-11] MEDS: cephALEXin 500 MG CAPSULE PO SCH ×3 (07:35→19:24)
[2020-02-11] MEDS: Sulfamethoxazole/Trimeth DS 1 EACH TABLET PO SCH ×2 (07:35→19:24)
[2020-02-11] MEDS: Silver Sulfadiazine 50 GM TUBE TP SCH (07:36)
[2020-02-12] MEDS: *HR* OxyCODONE Immed Rel 5 MG TABLET PO PRN ×6 (03:05→22:38)
[2020-02-12] MEDS: *HR* Heparin 5,000 UNIT/ML VIAL SQ SCH ×3 (04:40→20:38)
[2020-02-12] MEDS: Sulfamethoxazole/Trimeth DS 1 EACH TABLET PO SCH ×2 (07:34→20:36)
[2020-02-12] MEDS: Silver Sulfadiazine 50 GM TUBE TP SCH (07:35)
[2020-02-12] MEDS: cephALEXin 500 MG CAPSULE PO SCH ×3 (07:35→20:37)
[2020-02-13] MEDS: *HR* OxyCODONE Immed Rel 5 MG TABLET PO PRN ×7 (01:33→22:28)
[2020-02-13] MEDS: hydrOXYzine pamoate 25 MG CAPSULE PO PRN (04:25)
[2020-02-13] MEDS: *HR* Heparin 5,000 UNIT/ML VIAL SQ SCH ×3 (06:09→22:28)
[2020-02-13] MEDS: Sulfamethoxazole/Trimeth DS 1 EACH TABLET PO SCH ×2 (08:51→19:47)
[2020-02-13] MEDS: Silver Sulfadiazine 50 GM TUBE TP SCH (08:52)
[2020-02-13] MEDS: cephALEXin 500 MG CAPSULE PO SCH ×3 (08:52→19:48)
[2020-02-14] MEDS: *HR* OxyCODONE Immed Rel 5 MG TABLET PO PRN ×5 (01:11→22:55)
[2020-02-14] MEDS: *HR* Heparin 5,000 UNIT/ML VIAL SQ SCH ×3 (04:47→22:16)
[2020-02-14] MEDS: Silver Sulfadiazine 50 GM TUBE TP SCH (10:02)
[2020-02-14] MEDS: Sulfamethoxazole/Trimeth DS 1 EACH TABLET PO SCH ×2 (10:03→22:54)
[2020-02-14] MEDS: cephALEXin 500 MG CAPSULE PO SCH ×3 (10:03→22:17)
[2020-02-14] MEDS: Gabapentin 400 MG CAPSULE PO SCH ×3 (10:08→22:17)
[2020-02-14] MEDS: Sennosides/Docusate Sodium TABLET PO SCH (22:16)
[2020-02-15] MEDS: *HR* OxyCODONE Immed Rel 5 MG TABLET PO PRN ×4 (05:19→23:54)
[2020-02-15] MEDS: *HR* Heparin 5,000 UNIT/ML VIAL SQ SCH ×3 (05:21→22:07)
[2020-02-15] MEDS: cephALEXin 500 MG CAPSULE PO SCH (09:50)
[2020-02-15] MEDS: Sennosides/Docusate Sodium TABLET PO SCH ×2 (09:50→22:07)
[2020-02-15] MEDS: Gabapentin 400 MG CAPSULE PO SCH ×3 (09:50→22:07)
[2020-02-15] MEDS: Silver Sulfadiazine 50 GM TUBE TP SCH (09:51)
[2020-02-15] MEDS: hydrOXYzine pamoate 25 MG CAPSULE PO PRN (09:51)
[2020-02-16] MEDS: *HR* OxyCODONE Immed Rel 5 MG TABLET PO PRN ×3 (06:39→18:48)
[2020-02-16] MEDS: *HR* Heparin 5,000 UNIT/ML VIAL SQ SCH ×3 (06:39→20:44)
[2020-02-16] MEDS: Sennosides/Docusate Sodium TABLET PO SCH ×3 (08:43→20:43)
[2020-02-16] MEDS: hydrOXYzine pamoate 25 MG CAPSULE PO PRN (08:43)
[2020-02-16] MEDS: Gabapentin 400 MG CAPSULE PO SCH ×3 (08:44→20:43)
[2020-02-16] MEDS: Silver Sulfadiazine 50 GM TUBE TP SCH (08:45)
[2020-02-17] MEDS: *HR* OxyCODONE Immed Rel 5 MG TABLET PO PRN ×4 (00:51→20:29)
[2020-02-17] MEDS: *HR* Heparin 5,000 UNIT/ML VIAL SQ SCH ×3 (05:30→20:29)
[2020-02-17] MEDS: hydrOXYzine pamoate 25 MG CAPSULE PO PRN ×2 (05:41→13:23)
[2020-02-17] MEDS: Silver Sulfadiazine 50 GM TUBE TP SCH (09:02)
[2020-02-17] MEDS: Sennosides/Docusate Sodium TABLET PO SCH ×2 (09:02→20:32)
[2020-02-17] MEDS: Gabapentin 400 MG CAPSULE PO SCH ×3 (09:02→20:30)
[2020-02-18] MEDS ORDERED: *HR* LORazepam 1 MG TABLET PO ONE (00:14)
[2020-02-18] MEDS: *HR* OxyCODONE Immed Rel 5 MG TABLET PO PRN ×4 (02:33→21:40)
[2020-02-18] MEDS: *HR* Heparin 5,000 UNIT/ML VIAL SQ SCH ×4 (05:15→20:08)
[2020-02-18] MEDS: hydrOXYzine pamoate 25 MG CAPSULE PO PRN ×2 (05:20→13:02)
[2020-02-18] MEDS: Sennosides/Docusate Sodium TABLET PO SCH ×2 (08:42→20:07)
[2020-02-18] MEDS: Gabapentin 400 MG CAPSULE PO SCH ×3 (08:43→20:07)
[2020-02-18] MEDS: Silver Sulfadiazine 50 GM TUBE TP SCH (08:43)
[2020-02-18] MEDS ORDERED: *HR* OxyCODONE Immed Rel 5 MG TABLET PO PRN (11:17)
[2020-02-19] MEDS: *HR* Heparin 5,000 UNIT/ML VIAL SQ SCH ×4 (04:01→20:26)
[2020-02-19] MEDS: *HR* OxyCODONE Immed Rel 5 MG TABLET PO PRN ×4 (04:04→22:19)
[2020-02-19] MEDS: hydrOXYzine pamoate 25 MG CAPSULE PO PRN ×2 (05:12→22:19)
[2020-02-19 05:34] LABS: Basophils # 0.1 K/mcL (0.0-0.2); Basophils % 0.7 %; Eosinophils # 0.7 K/mcL (0.0-0.6); Eosinophils % 8.8 %; Hematocrit 39.2 % (37.5-50.1); Hemoglobin 12.7 g/dL (12.9-16.9); Immature Granulocytes % 1.1 % (0-4); Lymphocytes # 2.3 K/mcL (0.6-4.6); Lymphocytes % 28.1 %; Mean Corpuscular HGB Conc 32.4 g/dL (31.6-35.5); Mean Corpuscular Hemoglobin 28.5 pg (28.0-33.3); Mean Corpuscular Volume 87.9 fL (83.0-100.0); Mean Platelet Volume 9.5 fL (9.4-12.4); Monocytes # 0.9 K/mcL (0.0-1.3); Monocytes % 11.1 %; Neutrophils # 4.2 K/mcL (1.6-8.9); Platelet Count 332 K/mcL (140-400); Red Blood Count 4.46 M/mcL (4.19-5.50); Red Cell Distribution Width 13.1 % (11.5-14.5); Segmented Neutrophils % 50.2 %; White Blood Count 8.3 K/mcL (4.3-11.1)
[2020-02-19 05:49] LABS: BUN/Creatinine Ratio 32 (6-26); Blood Urea Nitrogen 24 mg/dL (6-20); Calcium 9.2 mg/dL (8.6-10.3); Carbon Dioxide 29 mEq/L (23-29); Chloride 104 mEq/L (98-107); Glucose 89 mg/dL (70-105); Osmolality,Calculated 290 (280-300); Potassium 3.9 mEq/L (3.5-5.1); Sodium 138 mEq/L (136-145); eGFR For African Americans > 60 (> 60); eGFR For Non-African Americans > 60 (> 60)
[2020-02-19] MEDS: Sennosides/Docusate Sodium TABLET PO SCH ×3 (07:39→20:28)
[2020-02-19] MEDS: Gabapentin 400 MG CAPSULE PO SCH ×3 (07:39→20:26)
[2020-02-19] MEDS: Silver Sulfadiazine 50 GM TUBE TP SCH (07:45)
[2020-02-20] MEDS: *HR* Heparin 5,000 UNIT/ML VIAL SQ SCH ×3 (04:36→20:47)
[2020-02-20] MEDS: *HR* OxyCODONE Immed Rel 5 MG TABLET PO PRN ×4 (04:39→23:34)
[2020-02-20] MEDS: Silver Sulfadiazine 50 GM TUBE TP SCH (07:45)
[2020-02-20] MEDS: Gabapentin 400 MG CAPSULE PO SCH ×3 (07:45→20:46)
[2020-02-20] MEDS: Sennosides/Docusate Sodium TABLET PO SCH ×2 (07:45→20:47)
[2020-02-20] MEDS: hydrOXYzine pamoate 25 MG CAPSULE PO PRN ×2 (11:09→23:34)
[2020-02-21] MEDS: *HR* Heparin 5,000 UNIT/ML VIAL SQ SCH ×3 (05:38→20:34)
[2020-02-21] MEDS: *HR* OxyCODONE Immed Rel 5 MG TABLET PO PRN ×3 (05:38→18:23)
[2020-02-21] MEDS: Silver Sulfadiazine 50 GM TUBE TP SCH (09:08)
[2020-02-21] MEDS: Gabapentin 400 MG CAPSULE PO SCH ×3 (09:16→20:37)
[2020-02-21] MEDS: Sennosides/Docusate Sodium TABLET PO SCH ×2 (09:16→20:34)
[2020-02-21] MEDS: hydrOXYzine pamoate 25 MG CAPSULE PO PRN (16:10)
[2020-02-22] MEDS: *HR* OxyCODONE Immed Rel 5 MG TABLET PO PRN ×4 (00:23→18:40)
[2020-02-22] MEDS: *HR* Heparin 5,000 UNIT/ML VIAL SQ SCH ×3 (06:29→21:00)
[2020-02-22] MEDS: hydrOXYzine pamoate 25 MG CAPSULE PO PRN ×2 (09:43→21:00)
[2020-02-22] MEDS: Gabapentin 400 MG CAPSULE PO SCH ×3 (09:43→20:59)
[2020-02-22] MEDS: Sennosides/Docusate Sodium TABLET PO SCH ×2 (09:44→21:01)
[2020-02-22] MEDS: Silver Sulfadiazine 50 GM TUBE TP SCH (09:44)
[2020-02-23] MEDS: *HR* OxyCODONE Immed Rel 5 MG TABLET PO PRN (00:43)
[2020-02-23] MEDS: *HR* Heparin 5,000 UNIT/ML VIAL SQ SCH ×3 (05:18→20:35)
[2020-02-23] MEDS: Gabapentin 400 MG CAPSULE PO SCH ×3 (09:12→20:35)
[2020-02-23] MEDS: Sennosides/Docusate Sodium TABLET PO SCH ×3 (09:13→20:42)
[2020-02-23] MEDS: Silver Sulfadiazine 50 GM TUBE TP SCH (09:13)
[2020-02-23] MEDS: hydrOXYzine pamoate 25 MG CAPSULE PO PRN (09:28)
[2020-02-24] MEDS: hydrOXYzine pamoate 25 MG CAPSULE PO PRN (01:14)
[2020-02-24] MEDS: *HR* Heparin 5,000 UNIT/ML VIAL SQ SCH (05:06)
[2020-02-24] MEDS: Gabapentin 400 MG CAPSULE PO SCH (07:59)
[2020-02-24] MEDS: Sennosides/Docusate Sodium TABLET PO SCH (08:00)
[2020-02-24] MEDS: Silver Sulfadiazine 50 GM TUBE TP SCH (08:00)
[2020-02-24 10:57] VITALS: BP 130/68
[2020-02-24] MEDS ORDERED: Silvasorb 44.4 ML TUBE TP SCH (11:00)
== END 2020-02-24 15:40 | disposition home or self-care (01) | DRG 720 ==
LOC: EMEROOARM 19:54 → 2ANU 19:54 → SUATTDRO 22:46 → 2ANU 23:10 → SUATTDRO 01-31 18:10
PROVIDERS: ADMIT Family Medicine; ATTEND Internal Medicine

== ENCOUNTER 2020-03-09 04:24 | Observation (INO) ==
[2020-03-09] MEDS ORDERED: 0.9 % Sodium Chloride 1,000 ML IVC ONE ×2 (04:36→07:19)
[2020-03-09] MEDS ORDERED: Isovue-370 500 ML BOTTLE IVP ONE (04:40)
[2020-03-09 05:22] LABS: Basophils % 0.2 %; Eosinophils # 0.2 K/mcL (0.0-0.6); Eosinophils % 1.2 %; Hematocrit 27.9 % (37.5-50.1); Hemoglobin 9.1 g/dL (12.9-16.9); Immature Granulocytes % 0.4 % (0-4); Lymphocytes # 1.6 K/mcL (0.6-4.6); Lymphocytes % 12.4 %; Mean Corpuscular HGB Conc 32.6 g/dL (31.6-35.5); Mean Corpuscular Hemoglobin 28.5 pg (28.0-33.3); Mean Corpuscular Volume 87.5 fL (83.0-100.0); Mean Platelet Volume 8.7 fL (9.4-12.4); Monocytes # 1.4 K/mcL (0.0-1.3); Monocytes % 10.9 %; Neutrophils # 9.5 K/mcL (1.6-8.9); Platelet Count 553 K/mcL (140-400); Red Blood Count 3.19 M/mcL (4.19-5.50); Red Cell Distribution Width 13.2 % (11.5-14.5); Segmented Neutrophils % 74.9 %; White Blood Count 12.7 K/mcL (4.3-11.1)
[2020-03-09 05:32] LABS: INR 1.2; Prothrombin Time 14.3 Seconds (9.4-12.1)
[2020-03-09 05:35] LABS: Activated Partial Thrombo Time 29.5 Seconds (26.0-36.0)
[2020-03-09 05:43] LABS: Alanine Aminotransferase 17 Units/L (7-52); Albumin 3.5 g/dL (3.5-5.7); Alkaline Phosphatase 49 Units/L (34-104); Aspartate Amino Transferase 21 Units/L (13-39); BUN/Creatinine Ratio 26 (6-26); Bilirubin,Direct 0.2 mg/dL (0.0-0.2); Bilirubin,Indirect 0.4 mg/dL (0.0-1.0); Bilirubin,Total 0.6 mg/dL (0.3-1.0); Blood Urea Nitrogen 24 mg/dL (6-20); Calcium 8.8 mg/dL (8.6-10.3); Carbon Dioxide 28 mEq/L (23-29); Chloride 89 mEq/L (98-107); Globulin 3.5 g/dL (2.4-3.5); Glucose 130 mg/dL (70-105); Osmolality,Calculated 268 (280-300); Potassium 2.9 mEq/L (3.5-5.1); Sodium 126 mEq/L (136-145); Troponin I < 0.03 ng/mL (< 0.04); eGFR For African Americans > 60 (> 60); eGFR For Non-African Americans > 60 (> 60)
[2020-03-09] MEDS ORDERED: Morphine Sulfate 2 MG/ML SYRINGE IVP ONE (07:17)
[2020-03-09] MEDS ORDERED: Clindamycin 600 MG/50 ML 600 MG/50 ML IV.SOLN IVPB ONE (07:24)
[2020-03-09] MEDS ORDERED: Ondansetron 4 MG/2 ML VIAL IVP PRN (08:41)
[2020-03-09] MEDS ORDERED: Naloxone 0.4 MG/ML INJ IVP PRN (08:41)
[2020-03-09] MEDS ORDERED: *HR* HYDROcodone/Acet 5/325 mg TABLET PO PRN (08:41)
[2020-03-09] MEDS: Lactobacillus 1 EACH CAP.SPRINK PO SCH (10:24)
[2020-03-09] MEDS: Gabapentin 400 MG CAPSULE PO SCH ×3 (10:24→21:27)
[2020-03-09 10:39] LABS: C-Reactive Protein 160 mg/L (Less than 10)
[2020-03-09] MEDS: *HR* OxyCODONE Immed Rel 5 MG TABLET PO PRN ×2 (10:39→19:17)
[2020-03-09 11:16] LABS: Amphetamine Screen,Urine Negative ng/mL (Cutoff=1000); Barbiturate Screen,Urine Negative ng/mL (Cutoff=200); Benzodiazepines Screen,Urine Negative ng/mL (Cutoff=200); Cannabinoid Screen,Urine Positive ng/mL (Cutoff = 50); Cocaine Screen,Urine Negative ng/mL (Cutoff= 300); Opiate Screen,Urine Positive ng/mL (Cutoff=300); Phencyclidine Screen,Urine Negative ng/mL (Cutoff=25)
[2020-03-09] MEDS: Silvasorb 44.4 ML TUBE TP SCH (11:27)
[2020-03-09] MEDS: cephALEXin 500 MG CAPSULE PO SCH ×2 (14:26→21:28)
[2020-03-09 16:12] LABS: Potassium 3.7 mEq/L (3.5-5.1)
[2020-03-09 16:24] LABS: BUN/Creatinine Ratio 17 (6-26); Blood Urea Nitrogen 13 mg/dL (6-20); Calcium 8.3 mg/dL (8.6-10.3); Carbon Dioxide 24 mEq/L (23-29); Chloride 98 mEq/L (98-107); Glucose 100 mg/dL (70-105); Osmolality,Calculated 270 (280-300); Sodium 130 mEq/L (136-145); eGFR For African Americans > 60 (> 60); eGFR For Non-African Americans > 60 (> 60)
[2020-03-09] MEDS: Sulfamethoxazole/Trimeth DS 1 EACH TABLET PO SCH (21:28)
[2020-03-10 02:51] LABS: Hematocrit 26.2 % (37.5-50.1); Hemoglobin 8.4 g/dL (12.9-16.9); Mean Corpuscular HGB Conc 32.1 g/dL (31.6-35.5); Mean Corpuscular Hemoglobin 28.9 pg (28.0-33.3); Mean Platelet Volume 9.1 fL (9.4-12.4); Platelet Count 574 K/mcL (140-400); Red Blood Count 2.91 M/mcL (4.19-5.50); Red Cell Distribution Width 13.7 % (11.5-14.5); White Blood Count 8.9 K/mcL (4.3-11.1)
[2020-03-10 03:02] LABS: Alanine Aminotransferase 13 Units/L (7-52); Albumin 2.9 g/dL (3.5-5.7); Albumin/Globulin Ratio 0.9 (1.1-2.2); Alkaline Phosphatase 43 Units/L (34-104); Aspartate Amino Transferase 14 Units/L (13-39); BUN/Creatinine Ratio 8 (6-26); Bilirubin,Total 0.3 mg/dL (0.3-1.0); Blood Urea Nitrogen 7 mg/dL (6-20); Calcium 7.8 mg/dL (8.6-10.3); Carbon Dioxide 23 mEq/L (23-29); Chloride 99 mEq/L (98-107); Globulin 3.2 g/dL (2.4-3.5); Glucose 147 mg/dL (70-105); Magnesium 1.7 mg/dL (1.6-2.6); Osmolality,Calculated 275 (280-300); Phosphorous 1.4 mg/dL (2.7-4.5); Potassium 3.1 mEq/L (3.5-5.1); Sodium 132 mEq/L (136-145); Total Protein 6.1 g/dL (6.4-8.9); eGFR For African Americans > 60 (> 60); eGFR For Non-African Americans > 60 (> 60)
[2020-03-10 03:07] LABS: Iron < 10 mcg/dL (65-175); Transferrin 199 mg/dL (203-362)
[2020-03-10 03:20] LABS: Ferritin 72 ng/mL (20-250)
[2020-03-10 03:25] LABS: Folate 7.4 ng/mL (3.0-16.0)
[2020-03-10] MEDS: *HR* OxyCODONE Immed Rel 5 MG TABLET PO PRN ×3 (03:30→19:55)
[2020-03-10] MEDS: *HR* Enoxaparin 40 MG/0.4 ML SYRINGE SQ SCH (05:52)
[2020-03-10] MEDS: Sulfamethoxazole/Trimeth DS 1 EACH TABLET PO SCH ×2 (09:37→20:06)
[2020-03-10] MEDS: Nicotine 14 MG PATCH.TD24 TD SCH (09:37)
[2020-03-10] MEDS: Magnesium Oxide 400 MG TABLET PO SCH (09:37)
[2020-03-10] MEDS: cephALEXin 500 MG CAPSULE PO SCH ×3 (09:37→19:55)
[2020-03-10] MEDS: Gabapentin 400 MG CAPSULE PO SCH ×3 (09:38→19:54)
[2020-03-10] MEDS: Silvasorb 44.4 ML TUBE TP SCH (09:38)
[2020-03-10] MEDS: Lactobacillus 1 EACH CAP.SPRINK PO SCH (09:38)
[2020-03-10] MEDS: hydrOXYzine pamoate 25 MG CAPSULE PO PRN (19:55)
[2020-03-11] MEDS: *HR* Enoxaparin 40 MG/0.4 ML SYRINGE SQ SCH (04:06)
[2020-03-11] MEDS: *HR* OxyCODONE Immed Rel 5 MG TABLET PO PRN ×4 (04:06→22:36)
[2020-03-11 05:42] LABS: Hemoglobin 8.3 g/dL (12.9-16.9); Mean Corpuscular HGB Conc 31.9 g/dL (31.6-35.5); Mean Corpuscular Hemoglobin 28.5 pg (28.0-33.3); Mean Corpuscular Volume 89.3 fL (83.0-100.0); Mean Platelet Volume 8.7 fL (9.4-12.4); Platelet Count 571 K/mcL (140-400); Red Blood Count 2.91 M/mcL (4.19-5.50); Red Cell Distribution Width 13.7 % (11.5-14.5); White Blood Count 7.8 K/mcL (4.3-11.1)
[2020-03-11 06:02] LABS: BUN/Creatinine Ratio 10 (6-26); Blood Urea Nitrogen 10 mg/dL (6-20); Calcium 8.2 mg/dL (8.6-10.3); Carbon Dioxide 23 mEq/L (23-29); Chloride 104 mEq/L (98-107); Glucose 110 mg/dL (70-105); Magnesium 1.8 mg/dL (1.6-2.6); Osmolality,Calculated 280 (280-300); Phosphorous 1.8 mg/dL (2.7-4.5); Potassium 3.7 mEq/L (3.5-5.1); Sodium 135 mEq/L (136-145); eGFR For African Americans > 60 (> 60); eGFR For Non-African Americans > 60 (> 60)
[2020-03-11] MEDS: Lactobacillus 1 EACH CAP.SPRINK PO SCH (08:53)
[2020-03-11] MEDS: Gabapentin 400 MG CAPSULE PO SCH ×3 (08:55→19:52)
[2020-03-11] MEDS: Magnesium Oxide 400 MG TABLET PO SCH (08:55)
[2020-03-11] MEDS: Sulfamethoxazole/Trimeth DS 1 EACH TABLET PO SCH ×2 (08:55→19:52)
[2020-03-11] MEDS: Nicotine 14 MG PATCH.TD24 TD SCH (08:58)
[2020-03-11] MEDS: cephALEXin 500 MG CAPSULE PO SCH ×3 (09:00→19:52)
[2020-03-11] MEDS: Silvasorb 44.4 ML TUBE TP SCH (09:01)
[2020-03-12] MEDS: *HR* Enoxaparin 40 MG/0.4 ML SYRINGE SQ SCH (04:42)
[2020-03-12] MEDS: *HR* OxyCODONE Immed Rel 5 MG TABLET PO PRN ×4 (04:42→22:50)
[2020-03-12 06:04] LABS: BUN/Creatinine Ratio 15 (6-26); Blood Urea Nitrogen 14 mg/dL (6-20); Calcium 8.7 mg/dL (8.6-10.3); Carbon Dioxide 18 mEq/L (23-29); Chloride 106 mEq/L (98-107); Ferritin 36 ng/mL (20-250); Glucose 96 mg/dL (70-105); Osmolality,Calculated 278 (280-300); Phosphorous 3.2 mg/dL (2.7-4.5); Potassium 4.2 mEq/L (3.5-5.1); Sodium 134 mEq/L (136-145); eGFR For African Americans > 60 (> 60); eGFR For Non-African Americans > 60 (> 60)
[2020-03-12] MEDS: Nicotine 14 MG PATCH.TD24 TD SCH (09:04)
[2020-03-12] MEDS: Gabapentin 400 MG CAPSULE PO SCH ×3 (09:04→20:25)
[2020-03-12] MEDS: Sulfamethoxazole/Trimeth DS 1 EACH TABLET PO SCH ×2 (09:05→20:25)
[2020-03-12] MEDS: Magnesium Oxide 400 MG TABLET PO SCH (09:05)
[2020-03-12] MEDS: Lactobacillus 1 EACH CAP.SPRINK PO SCH (09:05)
[2020-03-12] MEDS: Silvasorb 44.4 ML TUBE TP SCH (09:05)
[2020-03-12] MEDS: cephALEXin 500 MG CAPSULE PO SCH ×3 (09:05→20:26)
[2020-03-13] MEDS: *HR* OxyCODONE Immed Rel 5 MG TABLET PO PRN ×4 (04:54→23:06)
[2020-03-13] MEDS: *HR* Enoxaparin 40 MG/0.4 ML SYRINGE SQ SCH (04:55)
[2020-03-13 05:59] LABS: Hematocrit 32.3 % (37.5-50.1); Mean Corpuscular HGB Conc 31.9 g/dL (31.6-35.5); Mean Corpuscular Hemoglobin 28.4 pg (28.0-33.3); Mean Platelet Volume 8.4 fL (9.4-12.4); Platelet Count 784 K/mcL (140-400); Red Blood Count 3.63 M/mcL (4.19-5.50); Red Cell Distribution Width 13.4 % (11.5-14.5)
[2020-03-13 06:00] LABS: Hemoglobin 10.3 g/dL (12.9-16.9)
[2020-03-13 06:18] LABS: BUN/Creatinine Ratio 14 (6-26); Blood Urea Nitrogen 15 mg/dL (6-20); Carbon Dioxide 22 mEq/L (23-29); Chloride 102 mEq/L (98-107); Glucose 114 mg/dL (70-105); Osmolality,Calculated 276 (280-300); Potassium 4.1 mEq/L (3.5-5.1); Sodium 132 mEq/L (136-145); eGFR For African Americans > 60 (> 60); eGFR For Non-African Americans > 60 (> 60)
[2020-03-13] MEDS: Nicotine 14 MG PATCH.TD24 TD SCH (08:47)
[2020-03-13] MEDS: Sulfamethoxazole/Trimeth DS 1 EACH TABLET PO SCH ×2 (08:50→21:24)
[2020-03-13] MEDS: Lactobacillus 1 EACH CAP.SPRINK PO SCH (08:50)
[2020-03-13] MEDS: Gabapentin 400 MG CAPSULE PO SCH ×3 (08:51→21:24)
[2020-03-13] MEDS: cephALEXin 500 MG CAPSULE PO SCH ×3 (08:52→21:24)
[2020-03-13] MEDS: Silvasorb 44.4 ML TUBE TP SCH (11:00)
[2020-03-13] MEDS: hydrOXYzine pamoate 25 MG CAPSULE PO PRN (21:24)
[2020-03-14] MEDS: *HR* OxyCODONE Immed Rel 5 MG TABLET PO PRN ×3 (05:53→18:09)
[2020-03-14] MEDS: *HR* Enoxaparin 40 MG/0.4 ML SYRINGE SQ SCH (05:54)
[2020-03-14] MEDS: Gabapentin 400 MG CAPSULE PO SCH ×3 (08:54→20:31)
[2020-03-14] MEDS: cephALEXin 500 MG CAPSULE PO SCH ×3 (08:54→20:31)
[2020-03-14] MEDS: Lactobacillus 1 EACH CAP.SPRINK PO SCH (08:54)
[2020-03-14] MEDS: Nicotine 14 MG PATCH.TD24 TD SCH (08:55)
[2020-03-14] MEDS: Silvasorb 44.4 ML TUBE TP SCH (15:44)
[2020-03-14] MEDS: Sulfamethoxazole/Trimeth DS 1 EACH TABLET PO SCH ×2 (15:44→20:31)
[2020-03-14] MEDS: hydrOXYzine pamoate 25 MG CAPSULE PO PRN (20:31)
[2020-03-15] MEDS: *HR* OxyCODONE Immed Rel 5 MG TABLET PO PRN ×4 (00:20→18:26)
[2020-03-15] MEDS: *HR* Enoxaparin 40 MG/0.4 ML SYRINGE SQ SCH (06:05)
[2020-03-15] MEDS: Lactobacillus 1 EACH CAP.SPRINK PO SCH (08:42)
[2020-03-15] MEDS: cephALEXin 500 MG CAPSULE PO SCH ×3 (08:42→21:38)
[2020-03-15] MEDS: Sulfamethoxazole/Trimeth DS 1 EACH TABLET PO SCH ×2 (08:42→21:39)
[2020-03-15] MEDS: Gabapentin 400 MG CAPSULE PO SCH ×3 (08:42→21:39)
[2020-03-15] MEDS: Nicotine 14 MG PATCH.TD24 TD SCH (08:43)
[2020-03-15] MEDS: Silvasorb 44.4 ML TUBE TP SCH (09:03)
[2020-03-15] MEDS ORDERED: Acetaminophen IV 500 MG/50 ML INFUS..BTL IVPB ONE (11:51)
[2020-03-16] MEDS: *HR* OxyCODONE Immed Rel 5 MG TABLET PO PRN ×4 (00:42→20:37)
[2020-03-16] MEDS: *HR* Enoxaparin 40 MG/0.4 ML SYRINGE SQ SCH (05:20)
[2020-03-16 05:29] LABS: Hematocrit 33.1 % (37.5-50.1); Hemoglobin 10.4 g/dL (12.9-16.9); Mean Corpuscular HGB Conc 31.4 g/dL (31.6-35.5); Mean Corpuscular Hemoglobin 28.2 pg (28.0-33.3); Mean Corpuscular Volume 89.7 fL (83.0-100.0); Mean Platelet Volume 8.2 fL (9.4-12.4); Platelet Count 632 K/mcL (140-400); Red Blood Count 3.69 M/mcL (4.19-5.50); Red Cell Distribution Width 13.3 % (11.5-14.5); White Blood Count 8.1 K/mcL (4.3-11.1)
[2020-03-16] MEDS: Gabapentin 400 MG CAPSULE PO SCH ×3 (09:30→20:37)
[2020-03-16] MEDS: Nicotine 14 MG PATCH.TD24 TD SCH (09:31)
[2020-03-16] MEDS: Sulfamethoxazole/Trimeth DS 1 EACH TABLET PO SCH ×2 (09:31→20:37)
[2020-03-16] MEDS: Lactobacillus 1 EACH CAP.SPRINK PO SCH (09:31)
[2020-03-16] MEDS: cephALEXin 500 MG CAPSULE PO SCH ×3 (09:31→20:37)
[2020-03-16] MEDS: Silvasorb 44.4 ML TUBE TP SCH (09:32)
[2020-03-16] MEDS: hydrOXYzine pamoate 25 MG CAPSULE PO PRN (22:31)
[2020-03-17] MEDS: *HR* OxyCODONE Immed Rel 5 MG TABLET PO PRN ×4 (02:46→16:22)
[2020-03-17] MEDS: *HR* Enoxaparin 40 MG/0.4 ML SYRINGE SQ SCH (05:45)
[2020-03-17 08:56] LABS: Basophils # 0.1 K/mcL (0.0-0.2); Basophils % 0.5 %; Eosinophils # 0.3 K/mcL (0.0-0.6); Eosinophils % 3.5 %; Hematocrit 30.8 % (37.5-50.1); Hemoglobin 9.8 g/dL (12.9-16.9); Immature Granulocytes % 0.7 % (0-4); Lymphocytes # 2.5 K/mcL (0.6-4.6); Lymphocytes % 27.3 %; Mean Corpuscular HGB Conc 31.8 g/dL (31.6-35.5); Mean Corpuscular Hemoglobin 28.6 pg (28.0-33.3); Mean Corpuscular Volume 89.8 fL (83.0-100.0); Mean Platelet Volume 8.3 fL (9.4-12.4); Monocytes # 1.1 K/mcL (0.0-1.3); Monocytes % 12.1 %; Neutrophils # 5.1 K/mcL (1.6-8.9); Platelet Count 585 K/mcL (140-400); Red Blood Count 3.43 M/mcL (4.19-5.50); Red Cell Distribution Width 13.2 % (11.5-14.5); Segmented Neutrophils % 55.9 %; White Blood Count 9.1 K/mcL (4.3-11.1)
[2020-03-17 09:15] LABS: BUN/Creatinine Ratio 21 (6-26); Blood Urea Nitrogen 18 mg/dL (6-20); Calcium 8.7 mg/dL (8.6-10.3); Carbon Dioxide 24 mEq/L (23-29); Chloride 105 mEq/L (98-107); Glucose 90 mg/dL (70-105); Osmolality,Calculated 279 (280-300); Sodium 134 mEq/L (136-145); eGFR For African Americans > 60 (> 60); eGFR For Non-African Americans > 60 (> 60)
[2020-03-17] MEDS: cephALEXin 500 MG CAPSULE PO SCH ×3 (09:16→20:51)
[2020-03-17] MEDS: Gabapentin 400 MG CAPSULE PO SCH ×3 (09:16→20:51)
[2020-03-17] MEDS: Lactobacillus 1 EACH CAP.SPRINK PO SCH (09:16)
[2020-03-17] MEDS: Sulfamethoxazole/Trimeth DS 1 EACH TABLET PO SCH ×2 (09:16→20:51)
[2020-03-17] MEDS: Nicotine 14 MG PATCH.TD24 TD SCH (09:18)
[2020-03-17] MEDS: Silvasorb 44.4 ML TUBE TP SCH (09:19)
[2020-03-17] MEDS: hydrOXYzine pamoate 25 MG CAPSULE PO PRN (16:25)
[2020-03-18] MEDS: *HR* OxyCODONE Immed Rel 5 MG TABLET PO PRN ×5 (00:44→20:46)
[2020-03-18] MEDS: *HR* Enoxaparin 40 MG/0.4 ML SYRINGE SQ SCH (06:04)
[2020-03-18] MEDS: Gabapentin 400 MG CAPSULE PO SCH ×3 (09:05→20:46)
[2020-03-18] MEDS: cephALEXin 500 MG CAPSULE PO SCH ×3 (09:05→20:46)
[2020-03-18] MEDS: Sulfamethoxazole/Trimeth DS 1 EACH TABLET PO SCH ×2 (09:05→20:45)
[2020-03-18] MEDS: Lactobacillus 1 EACH CAP.SPRINK PO SCH (09:06)
[2020-03-18] MEDS: Nicotine 14 MG PATCH.TD24 TD SCH (09:06)
[2020-03-18] MEDS: hydrOXYzine pamoate 25 MG CAPSULE PO PRN ×2 (09:15→21:26)
[2020-03-18] MEDS: Silvasorb 44.4 ML TUBE TP SCH (09:19)
[2020-03-18 10:22] LABS: Basophils # 0.1 K/mcL (0.0-0.2); Basophils % 0.8 %; Eosinophils # 0.3 K/mcL (0.0-0.6); Eosinophils % 4.6 %; Hematocrit 32.3 % (37.5-50.1); Hemoglobin 10.2 g/dL (12.9-16.9); Immature Granulocytes % 0.6 % (0-4); Lymphocytes # 1.8 K/mcL (0.6-4.6); Lymphocytes % 28.8 %; Mean Corpuscular HGB Conc 31.6 g/dL (31.6-35.5); Mean Corpuscular Hemoglobin 28.5 pg (28.0-33.3); Mean Corpuscular Volume 90.2 fL (83.0-100.0); Mean Platelet Volume 8.4 fL (9.4-12.4); Monocytes # 0.5 K/mcL (0.0-1.3); Monocytes % 8.1 %; Neutrophils # 3.6 K/mcL (1.6-8.9); Platelet Count 505 K/mcL (140-400); Red Blood Count 3.58 M/mcL (4.19-5.50); Red Cell Distribution Width 13.2 % (11.5-14.5); Segmented Neutrophils % 57.1 %; White Blood Count 6.3 K/mcL (4.3-11.1)
[2020-03-18 10:43] LABS: BUN/Creatinine Ratio 23 (6-26); Blood Urea Nitrogen 19 mg/dL (6-20); Calcium 8.9 mg/dL (8.6-10.3); Carbon Dioxide 25 mEq/L (23-29); Chloride 103 mEq/L (98-107); Glucose 109 mg/dL (70-105); Osmolality,Calculated 283 (280-300); Sodium 135 mEq/L (136-145); eGFR For African Americans > 60 (> 60); eGFR For Non-African Americans > 60 (> 60)
[2020-03-19] MEDS: *HR* OxyCODONE Immed Rel 5 MG TABLET PO PRN ×6 (01:32→22:20)
[2020-03-19 05:32] LABS: Basophils % 0.6 %; Eosinophils # 0.4 K/mcL (0.0-0.6); Eosinophils % 5.3 %; Hematocrit 31.5 % (37.5-50.1); Hemoglobin 9.9 g/dL (12.9-16.9); Immature Granulocytes % 0.9 % (0-4); Lymphocytes # 1.9 K/mcL (0.6-4.6); Lymphocytes % 28.5 %; Mean Corpuscular HGB Conc 31.4 g/dL (31.6-35.5); Mean Corpuscular Hemoglobin 28.9 pg (28.0-33.3); Mean Corpuscular Volume 91.8 fL (83.0-100.0); Mean Platelet Volume 8.7 fL (9.4-12.4); Monocytes # 0.9 K/mcL (0.0-1.3); Monocytes % 12.5 %; Neutrophils # 3.6 K/mcL (1.6-8.9); Platelet Count 456 K/mcL (140-400); Red Blood Count 3.43 M/mcL (4.19-5.50); Red Cell Distribution Width 13.3 % (11.5-14.5); Segmented Neutrophils % 52.2 %; White Blood Count 6.8 K/mcL (4.3-11.1)
[2020-03-19] MEDS: *HR* Enoxaparin 40 MG/0.4 ML SYRINGE SQ SCH (05:42)
[2020-03-19 05:44] LABS: BUN/Creatinine Ratio 27 (6-26); Blood Urea Nitrogen 24 mg/dL (6-20); Calcium 8.8 mg/dL (8.6-10.3); Carbon Dioxide 28 mEq/L (23-29); Chloride 102 mEq/L (98-107); Glucose 123 mg/dL (70-105); Osmolality,Calculated 287 (280-300); Potassium 3.8 mEq/L (3.5-5.1); Sodium 136 mEq/L (136-145); eGFR For African Americans > 60 (> 60); eGFR For Non-African Americans > 60 (> 60)
[2020-03-19] MEDS: Sulfamethoxazole/Trimeth DS 1 EACH TABLET PO SCH ×2 (09:54→22:20)
[2020-03-19] MEDS: Lactobacillus 1 EACH CAP.SPRINK PO SCH (09:54)
[2020-03-19] MEDS: Gabapentin 400 MG CAPSULE PO SCH ×3 (09:54→22:20)
[2020-03-19] MEDS: hydrOXYzine pamoate 25 MG CAPSULE PO PRN ×2 (09:55→22:26)
[2020-03-19] MEDS: Nicotine 14 MG PATCH.TD24 TD SCH (09:55)
[2020-03-19] MEDS: cephALEXin 500 MG CAPSULE PO SCH ×3 (09:55→22:21)
[2020-03-19] MEDS: Silvasorb 44.4 ML TUBE TP SCH (10:19)
[2020-03-20] MEDS: *HR* OxyCODONE Immed Rel 5 MG TABLET PO PRN ×4 (02:06→18:47)
[2020-03-20] MEDS: *HR* Enoxaparin 40 MG/0.4 ML SYRINGE SQ SCH (06:11)
[2020-03-20 07:09] VITALS: BP 113/71
[2020-03-20] MEDS: Sulfamethoxazole/Trimeth DS 1 EACH TABLET PO SCH (09:33)
[2020-03-20] MEDS: Lactobacillus 1 EACH CAP.SPRINK PO SCH (09:33)
[2020-03-20] MEDS: Gabapentin 400 MG CAPSULE PO SCH ×2 (09:34→15:34)
[2020-03-20] MEDS: Nicotine 14 MG PATCH.TD24 TD SCH (09:34)
[2020-03-20] MEDS: Silvasorb 44.4 ML TUBE TP SCH (09:34)
[2020-03-20] MEDS: cephALEXin 500 MG CAPSULE PO SCH ×2 (09:34→15:34)
[2020-03-20] MEDS ORDERED: *HR* OxyCODONE Immed Rel 5 MG TABLET PO PRN (10:45)
[2020-03-20] MEDS: hydrOXYzine pamoate 25 MG CAPSULE PO PRN (10:48)
== END 2020-03-20 18:58 ==
LOC: SUATTDRO → EMEROOARM 04:24 → 3BNU 04:24 → SUATTDRO 09:41 → 3BNU 10:16 → 3ANU 03-15 18:51
PROVIDERS: ADMIT Internal Medicine; ATTEND Family Medicine

== ENCOUNTER 2020-10-09 12:37 | Inpatient (IN) ==
[2020-10-09 14:44] LABS: Basophils % 0.3 %; Eosinophils # 0.3 K/mcL (0.0-0.6); Eosinophils % 2.6 %; Hemoglobin 11.4 g/dL (12.9-16.9); Immature Granulocytes % 0.3 % (0-4); Lymphocytes # 1.4 K/mcL (0.6-4.6); Lymphocytes % 13.1 %; Mean Corpuscular HGB Conc 34.5 g/dL (31.6-35.5); Mean Corpuscular Hemoglobin 29.6 pg (28.0-33.3); Mean Corpuscular Volume 85.7 fL (83.0-100.0); Mean Platelet Volume 10.4 fL (9.4-12.4); Monocytes % 8.8 %; Neutrophils # 8.2 K/mcL (1.6-8.9); Platelet Count 222 K/mcL (140-400); Red Blood Count 3.85 M/mcL (4.19-5.50); Red Cell Distribution Width 13.5 % (11.5-14.5); Segmented Neutrophils % 74.9 %
[2020-10-09 15:05] LABS: Calcium 8.9 mg/dL (8.6-10.3); Potassium 4.1 mEq/L (3.5-5.1)
[2020-10-09] MEDS ORDERED: 0.9 % Sodium Chloride 1,000 ML IVC ONE (15:25)
[2020-10-09 16:00] LABS: Albumin 3.9 g/dL (3.5-5.7); Albumin/Globulin Ratio 1.2 (1.1-2.2); Bilirubin,Direct 0.3 mg/dL (0.0-0.2); Bilirubin,Indirect 0.6 mg/dL (0.0-1.0); Bilirubin,Total 0.9 mg/dL (0.3-1.0); Globulin 3.3 g/dL (2.4-3.5); Total Protein 7.2 g/dL (6.4-8.9)
[2020-10-09 16:11] LABS: Troponin I 0.04 ng/mL (< 0.04)
[2020-10-09 16:31] LABS: INR 1.1; Prothrombin Time 12.8 Seconds (9.4-12.1)
[2020-10-09 16:34] LABS: Activated Partial Thrombo Time 28.7 Seconds (26.0-36.0)
[2020-10-09 17:21] LABS: Bacteria,Urine Few per hpf (None-Few); Bilirubin,Urine Negative (Negative); Blood,Urine Trace (Negative); Clarity,Urine Turbid (Clear); Color,Urine Light-Yellow (Yellow); Glucose,Urine (UA) Normal (Normal); Hyaline Casts,Urine Few per lpf (None Seen); Ketones,Urine Trace mg/dL (Negative); Leukocyte Esterase,Urine Negative (Negative); Mucus,Urine Few per lpf (None-Few); Nitrite,Urine Negative (Negative); Protein,Urine 30 mg/dL (Neg-Trace); RBC,Urine 0-3 per hpf (0-3); Specific Gravity,Urine 1.016 (1.010-1.025); Sperm,Urine Present per hpf (None Seen); Urobilinogen,Urine Normal (Normal); WBC,Urine 0-3 per hpf (0-3)
[2020-10-09] MEDS ORDERED: Naloxone 0.4 MG/ML INJ IVP PRN (17:43)
[2020-10-09] MEDS ORDERED: *HR* OxyCODONE Immed Rel 5 MG TABLET PO PRN (18:07)
[2020-10-09] MEDS ORDERED: 0.9 % Sodium Chloride 1,000 ML IVC SCH ×2 (18:15)
[2020-10-09] MEDS ORDERED: hydrOXYzine pamoate 25 MG CAPSULE PO PRN (19:16)
[2020-10-09] MEDS: *HR* OxyCODONE Immed Rel 5 MG TABLET PO SCH (20:08)
[2020-10-09] MEDS: *HR* Heparin 5,000 UNIT/ML VIAL SQ SCH (20:09)
[2020-10-09] MEDS: Gabapentin 400 MG CAPSULE PO SCH (23:43)
[2020-10-09] MEDS: tiZANidine 4 MG TABLET PO SCH (23:43)
[2020-10-10] MEDS: *HR* OxyCODONE Immed Rel 5 MG TABLET PO SCH ×2 (02:15→10:09)
[2020-10-10 02:35] LABS: Amphetamine Screen,Urine Negative ng/mL (Cutoff=1000); Barbiturate Screen,Urine Negative ng/mL (Cutoff=200); Benzodiazepines Screen,Urine Negative ng/mL (Cutoff=200); Cannabinoid Screen,Urine Negative ng/mL (Cutoff = 50); Cocaine Screen,Urine Negative ng/mL (Cutoff= 300); Opiate Screen,Urine Positive ng/mL (Cutoff=300); Phencyclidine Screen,Urine Negative ng/mL (Cutoff=25)
[2020-10-10] MEDS: *HR* Heparin 5,000 UNIT/ML VIAL SQ SCH ×3 (05:38→22:16)
[2020-10-10 06:41] LABS: Basophils % 0.4 %; Eosinophils # 0.3 K/mcL (0.0-0.6); Eosinophils % 5.9 %; Hematocrit 33.3 % (37.5-50.1); Hemoglobin 11.1 g/dL (12.9-16.9); Immature Granulocytes % 0.4 % (0-4); Lymphocytes # 1.5 K/mcL (0.6-4.6); Lymphocytes % 27.5 %; Mean Corpuscular HGB Conc 33.3 g/dL (31.6-35.5); Mean Corpuscular Hemoglobin 28.9 pg (28.0-33.3); Mean Corpuscular Volume 86.7 fL (83.0-100.0); Mean Platelet Volume 10.7 fL (9.4-12.4); Monocytes # 0.6 K/mcL (0.0-1.3); Monocytes % 11.1 %; Neutrophils # 3.1 K/mcL (1.6-8.9); Platelet Count 220 K/mcL (140-400); Red Blood Count 3.84 M/mcL (4.19-5.50); Red Cell Distribution Width 13.5 % (11.5-14.5); Segmented Neutrophils % 54.7 %; White Blood Count 5.6 K/mcL (4.3-11.1)
[2020-10-10 07:03] LABS: BUN/Creatinine Ratio 21 (6-26); Blood Urea Nitrogen 30 mg/dL (6-20); Calcium 8.7 mg/dL (8.6-10.3); Carbon Dioxide 23 mEq/L (23-29); Chloride 102 mEq/L (98-107); Glucose 116 mg/dL (70-105); Osmolality,Calculated 283 (280-300); Potassium 3.5 mEq/L (3.5-5.1); Sodium 133 mEq/L (136-145); eGFR For African Americans > 60 (> 60); eGFR For Non-African Americans 51 (> 60)
[2020-10-10] MEDS: Gabapentin 400 MG CAPSULE PO SCH ×2 (10:09→22:16)
[2020-10-10] MEDS: tiZANidine 4 MG TABLET PO SCH ×3 (10:09→22:16)
[2020-10-10] MEDS ORDERED: 0.9 % Sodium Chloride 1,000 ML IVC ONE (10:11)
[2020-10-10] MEDS ORDERED: *HR* OxyCODONE Immed Rel 5 MG TABLET PO PRN (13:07)
[2020-10-10] MEDS: *HR* OxyCODONE Immed Rel 5 MG TABLET PO PRN ×2 (13:32→20:09)
[2020-10-11 01:55] LABS: Basophils % 0.2 %; Eosinophils # 0.3 K/mcL (0.0-0.6); Eosinophils % 5.9 %; Hemoglobin 11.1 g/dL (12.9-16.9); Immature Granulocytes % 0.2 % (0-4); Lymphocytes # 1.3 K/mcL (0.6-4.6); Lymphocytes % 24.9 %; Mean Corpuscular HGB Conc 34.7 g/dL (31.6-35.5); Mean Corpuscular Hemoglobin 29.8 pg (28.0-33.3); Mean Platelet Volume 10.4 fL (9.4-12.4); Monocytes # 0.5 K/mcL (0.0-1.3); Monocytes % 8.8 %; Neutrophils # 3.1 K/mcL (1.6-8.9); Platelet Count 227 K/mcL (140-400); Red Blood Count 3.72 M/mcL (4.19-5.50); Red Cell Distribution Width 13.6 % (11.5-14.5); White Blood Count 5.2 K/mcL (4.3-11.1)
[2020-10-11 02:11] LABS: BUN/Creatinine Ratio 15 (6-26); Blood Urea Nitrogen 16 mg/dL (6-20); Calcium 8.2 mg/dL (8.6-10.3); Carbon Dioxide 23 mEq/L (23-29); Chloride 101 mEq/L (98-107); Glucose 110 mg/dL (70-105); Osmolality,Calculated 288 (280-300); Potassium 3.6 mEq/L (3.5-5.1); Sodium 138 mEq/L (136-145); eGFR For African Americans > 60 (> 60); eGFR For Non-African Americans > 60 (> 60)
[2020-10-11] MEDS: *HR* OxyCODONE Immed Rel 5 MG TABLET PO PRN ×3 (04:23→21:46)
[2020-10-11] MEDS: *HR* Heparin 5,000 UNIT/ML VIAL SQ SCH ×3 (04:45→21:46)
[2020-10-11] MEDS: tiZANidine 4 MG TABLET PO SCH ×3 (09:55→19:57)
[2020-10-11] MEDS: Gabapentin 400 MG CAPSULE PO SCH ×2 (09:55→19:57)
[2020-10-11 16:51] LABS: Magnesium 1.8 mg/dL (1.6-2.6)
[2020-10-11 17:04] LABS: Thyroid Stimulating Hormone 2.32 mcIU/mL (0.340-5.600)
[2020-10-12] MEDS: *HR* OxyCODONE Immed Rel 5 MG TABLET PO PRN ×4 (03:59→21:41)
[2020-10-12] MEDS: *HR* Heparin 5,000 UNIT/ML VIAL SQ SCH ×3 (05:12→21:41)
[2020-10-12 06:18] LABS: Basophils % 0.6 %; Eosinophils # 0.3 K/mcL (0.0-0.6); Eosinophils % 6.5 %; Hematocrit 33.7 % (37.5-50.1); Hemoglobin 11.6 g/dL (12.9-16.9); Immature Granulocytes % 0.4 % (0-4); Lymphocytes # 1.4 K/mcL (0.6-4.6); Lymphocytes % 27.1 %; Mean Corpuscular HGB Conc 34.4 g/dL (31.6-35.5); Mean Corpuscular Hemoglobin 30.1 pg (28.0-33.3); Mean Corpuscular Volume 87.3 fL (83.0-100.0); Mean Platelet Volume 10.5 fL (9.4-12.4); Monocytes # 0.6 K/mcL (0.0-1.3); Monocytes % 10.4 %; Neutrophils # 2.9 K/mcL (1.6-8.9); Platelet Count 281 K/mcL (140-400); Red Blood Count 3.86 M/mcL (4.19-5.50); Red Cell Distribution Width 14.1 % (11.5-14.5); White Blood Count 5.3 K/mcL (4.3-11.1)
[2020-10-12 06:35] LABS: BUN/Creatinine Ratio 12 (6-26); Blood Urea Nitrogen 11 mg/dL (6-20); Calcium 8.6 mg/dL (8.6-10.3); Carbon Dioxide 22 mEq/L (23-29); Chloride 108 mEq/L (98-107); Glucose 85 mg/dL (70-105); Osmolality,Calculated 283 (280-300); Potassium 3.8 mEq/L (3.5-5.1); Sodium 137 mEq/L (136-145); eGFR For African Americans > 60 (> 60); eGFR For Non-African Americans > 60 (> 60)
[2020-10-12] MEDS: Gabapentin 400 MG CAPSULE PO SCH ×2 (09:08→21:41)
[2020-10-12] MEDS: tiZANidine 4 MG TABLET PO SCH ×3 (09:08→21:41)
[2020-10-13] MEDS: *HR* OxyCODONE Immed Rel 5 MG TABLET PO PRN ×3 (04:00→22:58)
[2020-10-13] MEDS: *HR* Heparin 5,000 UNIT/ML VIAL SQ SCH ×3 (05:20→22:58)
[2020-10-13] MEDS: tiZANidine 4 MG TABLET PO SCH ×3 (08:54→19:50)
[2020-10-13] MEDS: Gabapentin 400 MG CAPSULE PO SCH ×2 (08:54→19:50)
[2020-10-13] MEDS ORDERED: *HR* OxyCODONE Immed Rel 5 MG TABLET PO PRN (16:20)
[2020-10-14] MEDS: *HR* OxyCODONE Immed Rel 5 MG TABLET PO PRN ×3 (05:10→17:49)
[2020-10-14] MEDS: *HR* Heparin 5,000 UNIT/ML VIAL SQ SCH ×3 (05:11→23:51)
[2020-10-14] MEDS: Gabapentin 400 MG CAPSULE PO SCH ×2 (10:05→19:43)
[2020-10-14] MEDS: tiZANidine 4 MG TABLET PO SCH ×3 (10:05→19:43)
[2020-10-15] MEDS: *HR* OxyCODONE Immed Rel 5 MG TABLET PO PRN ×4 (01:17→19:42)
[2020-10-15 01:58] LABS: Basophils % 0.4 %; Eosinophils # 0.5 K/mcL (0.0-0.6); Eosinophils % 6.6 %; Hematocrit 37.8 % (37.5-50.1); Hemoglobin 12.8 g/dL (12.9-16.9); Immature Granulocytes % 0.4 % (0-4); Lymphocytes # 1.7 K/mcL (0.6-4.6); Lymphocytes % 20.5 %; Mean Corpuscular HGB Conc 33.9 g/dL (31.6-35.5); Mean Corpuscular Hemoglobin 29.6 pg (28.0-33.3); Mean Corpuscular Volume 87.3 fL (83.0-100.0); Mean Platelet Volume 9.8 fL (9.4-12.4); Monocytes # 0.7 K/mcL (0.0-1.3); Monocytes % 8.4 %; Platelet Count 305 K/mcL (140-400); Red Blood Count 4.33 M/mcL (4.19-5.50); Red Cell Distribution Width 13.9 % (11.5-14.5); Segmented Neutrophils % 63.7 %
[2020-10-15 01:59] LABS: Neutrophils # 5.2 K/mcL (1.6-8.9); White Blood Count 8.1 K/mcL (4.3-11.1)
[2020-10-15 02:20] LABS: BUN/Creatinine Ratio 12 (6-26); Blood Urea Nitrogen 11 mg/dL (6-20); Calcium 8.5 mg/dL (8.6-10.3); Carbon Dioxide 24 mEq/L (23-29); Chloride 106 mEq/L (98-107); Glucose 115 mg/dL (70-105); Osmolality,Calculated 288 (280-300); Potassium 3.9 mEq/L (3.5-5.1); Sodium 139 mEq/L (136-145); eGFR For African Americans > 60 (> 60); eGFR For Non-African Americans > 60 (> 60)
[2020-10-15] MEDS: tiZANidine 4 MG TABLET PO SCH ×3 (07:14→19:42)
[2020-10-15] MEDS: *HR* Heparin 5,000 UNIT/ML VIAL SQ SCH ×3 (07:15→21:16)
[2020-10-15] MEDS: Gabapentin 400 MG CAPSULE PO SCH ×2 (07:15→19:42)
[2020-10-16] MEDS: *HR* OxyCODONE Immed Rel 5 MG TABLET PO PRN ×4 (03:54→22:38)
[2020-10-16] MEDS: Gabapentin 400 MG CAPSULE PO SCH ×2 (07:34→19:36)
[2020-10-16] MEDS: tiZANidine 4 MG TABLET PO SCH ×3 (07:34→19:36)
[2020-10-16] MEDS: Doxycycline 100 MG CAPSULE PO SCH ×2 (13:12→19:36)
[2020-10-16] MEDS: *HR* Heparin 5,000 UNIT/ML VIAL SQ SCH ×2 (16:18→19:36)
[2020-10-17] MEDS: *HR* Heparin 5,000 UNIT/ML VIAL SQ SCH ×3 (04:38→19:44)
[2020-10-17] MEDS: *HR* OxyCODONE Immed Rel 5 MG TABLET PO PRN ×3 (06:50→19:38)
[2020-10-17] MEDS: Gabapentin 400 MG CAPSULE PO SCH ×2 (07:14→19:38)
[2020-10-17] MEDS: tiZANidine 4 MG TABLET PO SCH ×3 (07:15→19:38)
[2020-10-17] MEDS: Doxycycline 100 MG CAPSULE PO SCH ×2 (07:15→19:39)
[2020-10-17 08:00] LABS: Basophils % 0.4 %; Eosinophils # 0.7 K/mcL (0.0-0.6); Eosinophils % 6.8 %; Hematocrit 40.3 % (37.5-50.1); Hemoglobin 13.4 g/dL (12.9-16.9); Immature Granulocytes % 0.6 % (0-4); Lymphocytes # 2.1 K/mcL (0.6-4.6); Lymphocytes % 22.1 %; Mean Corpuscular HGB Conc 33.3 g/dL (31.6-35.5); Mean Corpuscular Hemoglobin 29.5 pg (28.0-33.3); Mean Corpuscular Volume 88.8 fL (83.0-100.0); Mean Platelet Volume 9.8 fL (9.4-12.4); Monocytes # 0.9 K/mcL (0.0-1.3); Neutrophils # 5.8 K/mcL (1.6-8.9); Platelet Count 371 K/mcL (140-400); Red Blood Count 4.54 M/mcL (4.19-5.50); Red Cell Distribution Width 13.9 % (11.5-14.5); Segmented Neutrophils % 61.1 %; White Blood Count 9.5 K/mcL (4.3-11.1)
[2020-10-17] MEDS: Dental Box - Benzocaine 20% SWAB DT SCH (15:31)
[2020-10-18] MEDS: *HR* OxyCODONE Immed Rel 5 MG TABLET PO PRN ×4 (01:44→19:43)
[2020-10-18] MEDS: *HR* Heparin 5,000 UNIT/ML VIAL SQ SCH ×3 (05:56→19:44)
[2020-10-18] MEDS: Doxycycline 100 MG CAPSULE PO SCH ×2 (07:27→19:48)
[2020-10-18] MEDS: tiZANidine 4 MG TABLET PO SCH ×3 (07:27→19:48)
[2020-10-18] MEDS: Gabapentin 400 MG CAPSULE PO SCH ×2 (07:28→19:48)
[2020-10-18] MEDS: Dental Box - Benzocaine 20% SWAB DT SCH (09:50)
[2020-10-19] MEDS: *HR* OxyCODONE Immed Rel 5 MG TABLET PO PRN ×4 (01:46→20:46)
[2020-10-19] MEDS: *HR* Heparin 5,000 UNIT/ML VIAL SQ SCH ×4 (01:47→22:15)
[2020-10-19] MEDS: Gabapentin 400 MG CAPSULE PO SCH ×2 (08:16→20:46)
[2020-10-19] MEDS: Doxycycline 100 MG CAPSULE PO SCH ×2 (08:16→20:46)
[2020-10-19] MEDS: tiZANidine 4 MG TABLET PO SCH ×3 (08:16→20:46)
[2020-10-19] MEDS: Dental Box - Benzocaine 20% SWAB DT SCH (08:16)
[2020-10-20 02:23] LABS: Hematocrit 43.8 % (37.5-50.1); Hemoglobin 14.6 g/dL (12.9-16.9); Mean Corpuscular HGB Conc 33.3 g/dL (31.6-35.5); Mean Corpuscular Hemoglobin 29.3 pg (28.0-33.3); Platelet Count 400 K/mcL (140-400); Red Blood Count 4.98 M/mcL (4.19-5.50); Red Cell Distribution Width 13.6 % (11.5-14.5); White Blood Count 8.1 K/mcL (4.3-11.1)
[2020-10-20] MEDS: *HR* OxyCODONE Immed Rel 5 MG TABLET PO PRN ×4 (03:16→22:33)
[2020-10-20] MEDS: Dental Box - Benzocaine 20% SWAB DT SCH (09:23)
[2020-10-20] MEDS: tiZANidine 4 MG TABLET PO SCH ×3 (09:24→21:45)
[2020-10-20] MEDS: Doxycycline 100 MG CAPSULE PO SCH (09:24)
[2020-10-20] MEDS: Gabapentin 400 MG CAPSULE PO SCH ×2 (09:24→21:45)
[2020-10-20] MEDS: *HR* Heparin 5,000 UNIT/ML VIAL SQ SCH ×2 (14:21→21:46)
[2020-10-21] MEDS: *HR* Heparin 5,000 UNIT/ML VIAL SQ SCH ×3 (02:39→23:27)
[2020-10-21] MEDS: *HR* OxyCODONE Immed Rel 5 MG TABLET PO PRN (04:36)
[2020-10-21] MEDS: Dental Box - Benzocaine 20% SWAB DT SCH (07:51)
[2020-10-21] MEDS: tiZANidine 4 MG TABLET PO SCH ×3 (07:52→21:35)
[2020-10-21] MEDS: Gabapentin 400 MG CAPSULE PO SCH ×2 (07:52→21:35)
[2020-10-21] MEDS: *HR* OxyCODONE Immed Rel 5 MG TABLET PO SCH ×2 (11:04→18:02)
[2020-10-22] MEDS: *HR* OxyCODONE Immed Rel 5 MG TABLET PO SCH ×5 (00:11→23:55)
[2020-10-22] MEDS: Gabapentin 400 MG CAPSULE PO SCH ×2 (08:18→20:07)
[2020-10-22] MEDS: tiZANidine 4 MG TABLET PO SCH ×3 (08:18→20:07)
[2020-10-22] MEDS: Dental Box - Benzocaine 20% SWAB DT SCH (08:19)
[2020-10-22] MEDS: *HR* Heparin 5,000 UNIT/ML VIAL SQ SCH ×2 (13:20→21:18)
[2020-10-23] MEDS: *HR* Heparin 5,000 UNIT/ML VIAL SQ SCH ×2 (04:54→13:33)
[2020-10-23 06:12] VITALS: BP 136/85; PULSE 63; TEMP 97.9; O2SAT 98
[2020-10-23] MEDS: *HR* OxyCODONE Immed Rel 5 MG TABLET PO SCH ×3 (06:12→17:41)
[2020-10-23] MEDS: Dental Box - Benzocaine 20% SWAB DT SCH (09:00)
[2020-10-23] MEDS: tiZANidine 4 MG TABLET PO SCH ×2 (09:00→13:58)
[2020-10-23] MEDS: Gabapentin 400 MG CAPSULE PO SCH (09:00)
[2020-10-23 16:14] LABS: Adenovirus Not Detected (Not Detect); Coronavirus 229E Not Detected (Not Detect); Coronavirus HKU1 Not Detected (Not Detect); Coronavirus NL63 Not Detected (Not Detect); Coronavirus OC43 Not Detected (Not Detect); Human Metapneumovirus Not Detected (Not Detect); Human Rhinovirus/Enterovirus Not Detected (Not Detect); Influenza A Subtype 2009 H1 Not Detected (Not Detect); SARS-CoV-2 Not Detected (Not Detect)
[2020-10-23 16:15] LABS: Bordetella Pertussis Not Detected (Not Detect); Chlamydophila pneumoniae Not Detected (Not Detect); Influenza B Not Detected (Not Detect); Mycoplasma pneumoniae Not Detected (Not Detect); Parainfluenza Virus 1 Not Detected (Not Detect); Parainfluenza Virus 2 Not Detected (Not Detect); Parainfluenza Virus 3 Not Detected (Not Detect); Parainfluenza Virus 4 Not Detected (Not Detect); Respiratory Syncytial Virus Not Detected (Not Detect)
[2020-10-23] MEDS ORDERED: Melatonin 3 MG TABLET PO SCH (21:00)
== END 2020-10-23 18:10 | DRG 204 ==
LOC: 3NENU 12:37 → EMEROOARM 12:37 → SUATTDRO 17:40 → 3NENU 18:44 → CDU 10-10 08:24 → 3BNU 10-13 17:12
PROVIDERS: ADMIT Internal Medicine; ATTEND Student in an Organized Health Care Education/Training Program

== ENCOUNTER 2020-11-13 14:53 | Observation (INO) ==
[2020-11-13] MEDS ORDERED: Vancomycin 1,500 MG/265 ML IV.SOLN IVPB ONE (17:29)
[2020-11-13] MEDS ORDERED: *HR* HYDROmorphone (PF) 1 MG/ML SYRINGE IVP ONE ×2 (17:30→23:16)
[2020-11-13 19:19] LABS: Basophils % 0.2 %; Eosinophils # 0.1 K/mcL (0.0-0.6); Eosinophils % 0.6 %; Hematocrit 36.9 % (37.5-50.1); Immature Granulocytes % 0.4 % (0-4); Lymphocytes # 1.7 K/mcL (0.6-4.6); Lymphocytes % 9.9 %; Mean Corpuscular HGB Conc 35.2 g/dL (31.6-35.5); Mean Platelet Volume 9.8 fL (9.4-12.4); Monocytes % 5.8 %; Neutrophils # 14.4 K/mcL (1.6-8.9); Platelet Count 220 K/mcL (140-400); Red Blood Count 4.34 M/mcL (4.19-5.50); Red Cell Distribution Width 13.2 % (11.5-14.5); Segmented Neutrophils % 83.1 %; White Blood Count 17.4 K/mcL (4.3-11.1)
[2020-11-13 19:32] LABS: Alanine Aminotransferase 48 Units/L (7-52); Albumin 4.1 g/dL (3.5-5.7); Albumin/Globulin Ratio 1.2 (1.1-2.2); Alkaline Phosphatase 60 Units/L (34-104); Aspartate Amino Transferase 186 Units/L (13-39); BUN/Creatinine Ratio 16 (6-26); Blood Urea Nitrogen 15 mg/dL (6-20); C-Reactive Protein 83 mg/L (Less than 10); Carbon Dioxide 25 mEq/L (23-29); Chloride 99 mEq/L (98-107); Globulin 3.5 g/dL (2.4-3.5); Glucose 101 mg/dL (70-105); Osmolality,Calculated 283 (280-300); Potassium 3.8 mEq/L (3.5-5.1); Sodium 136 mEq/L (136-145); Total Protein 7.6 g/dL (6.4-8.9); eGFR For African Americans > 60 (> 60); eGFR For Non-African Americans > 60 (> 60)
[2020-11-13] MEDS ORDERED: 0.9 % Sodium Chloride 1,000 ML IV ONE (19:54)
[2020-11-13] MEDS ORDERED: Gadolinium Contrast Agent (WT Based) IV PRN ×2 (19:54→22:29)
[2020-11-13] MEDS ORDERED: *HR* LORazepam 2 MG/ML VIAL IVP ONE (23:16)
[2020-11-14] MEDS ORDERED: Gadolinium Contrast Agent (WT Based) IV PRN (00:30)
[2020-11-14] MEDS ORDERED: 0.9 % Sodium Chloride 1,000 ML IV ONE (00:33)
[2020-11-14] MEDS ORDERED: Piperacillin/Tazobactam 3.375 GM in 0.9 % Sodium Chloride Mini Bag 100 ML IVPB ONE (00:33)
[2020-11-14] MEDS ORDERED: Isovue-370 500 ML BOTTLE IVP ONE (06:22)
[2020-11-14 08:24] LABS: Alanine Aminotransferase 39 Units/L (7-52); Albumin 3.2 g/dL (3.5-5.7); Albumin/Globulin Ratio 1.1 (1.1-2.2); Alkaline Phosphatase 47 Units/L (34-104); Aspartate Amino Transferase 169 Units/L (13-39); BUN/Creatinine Ratio 18 (6-26); Blood Urea Nitrogen 17 mg/dL (6-20); Carbon Dioxide 22 mEq/L (23-29); Chloride 105 mEq/L (98-107); Glucose 129 mg/dL (70-105); Magnesium 1.8 mg/dL (1.6-2.6); Osmolality,Calculated 285 (280-300); Phosphorous 1.7 mg/dL (2.7-4.5); Potassium 3.5 mEq/L (3.5-5.1); Sodium 136 mEq/L (136-145); Total Protein 6.2 g/dL (6.4-8.9); eGFR For African Americans > 60 (> 60); eGFR For Non-African Americans > 60 (> 60)
[2020-11-14] MEDS ORDERED: Ondansetron 4 MG/2 ML VIAL IVP PRN (08:44)
[2020-11-14] MEDS ORDERED: Naloxone 0.4 MG/ML INJ IVP PRN (08:44)
[2020-11-14] MEDS ORDERED: Ringers Solution, Lactated 1,000 ML IVC SCH (08:45)
[2020-11-14 09:44] LABS: Basophils # 0.1 K/mcL (0.0-0.2); Basophils % 0.4 %; Eosinophils # 0.4 K/mcL (0.0-0.6); Eosinophils % 3.3 %; Hematocrit 36.2 % (37.5-50.1); Hemoglobin 12.3 g/dL (12.9-16.9); Immature Granulocytes % 0.2 % (0-4); Lymphocytes % 15.7 %; Mean Corpuscular Hemoglobin 29.6 pg (28.0-33.3); Mean Platelet Volume 10.1 fL (9.4-12.4); Monocytes % 7.8 %; Neutrophils # 9.3 K/mcL (1.6-8.9); Platelet Count 217 K/mcL (140-400); Red Blood Count 4.15 M/mcL (4.19-5.50); Red Cell Distribution Width 13.4 % (11.5-14.5); Segmented Neutrophils % 72.6 %; White Blood Count 12.8 K/mcL (4.3-11.1)
[2020-11-14 09:46] LABS: Mean Corpuscular Volume 87.2 fL (83.0-100.0)
[2020-11-14 10:28] LABS: Amphetamine Screen,Urine Negative ng/mL (Cutoff=1000); Barbiturate Screen,Urine Negative ng/mL (Cutoff=200); Benzodiazepines Screen,Urine Negative ng/mL (Cutoff=200); Cannabinoid Screen,Urine Negative ng/mL (Cutoff = 50); Cocaine Screen,Urine Positive ng/mL (Cutoff= 300); Opiate Screen,Urine Positive ng/mL (Cutoff=300); Phencyclidine Screen,Urine Negative ng/mL (Cutoff=25)
[2020-11-14] MEDS ORDERED: *HR* OxyCODONE/APAP 5/325 TABLET PO PRN (10:50)
[2020-11-14] MEDS ORDERED: Acetaminophen 325 MG TABLET PO PRN ×2 (10:50)
[2020-11-14] MEDS ORDERED: Sennosides/Docusate Sodium TABLET PO PRN (10:51)
[2020-11-14] MEDS: Piperacillin/Tazobactam 3.375 GM in 0.9 % Sodium Chloride Mini Bag 100 ML IVPB SCH ×2 (12:57→14:14)
[2020-11-14] MEDS: *HR* OxyCODONE Immed Rel 5 MG TABLET PO PRN ×2 (12:57→21:14)
[2020-11-14] MEDS: Vancomycin 1,500 MG/265 ML IV.SOLN IVPB SCH ×2 (12:58→23:10)
[2020-11-14] MEDS: Nicotine 14 MG PATCH.TD24 TD SCH (14:39)
[2020-11-14] MEDS: Calcium Gluconate 1gm/50mL 1 GM/50 ML BAG IVPB SCH ×2 (14:40→15:41)
[2020-11-14 16:32] LABS: Acetaminophen < 10 mcg/mL (10-20); Salicylate < 2.5 mg/dL (15.0-30.0)
[2020-11-14] MEDS: Lactobacillus 1 EACH CAP.SPRINK PO SCH (21:14)
[2020-11-14] MEDS: Chlorhexidine Rinse 15 ML MOUTHWASH MM SCH (21:14)
[2020-11-15] MEDS: Piperacillin/Tazobactam 3.375 GM in 0.9 % Sodium Chloride Mini Bag 100 ML IVPB SCH ×2 (00:56→08:12)
[2020-11-15] MEDS: *HR* OxyCODONE Immed Rel 5 MG TABLET PO PRN ×4 (03:53→22:55)
[2020-11-15] MEDS: *HR* Enoxaparin 40 MG/0.4 ML SYRINGE SQ SCH (05:19)
[2020-11-15 06:49] LABS: Basophils % 0.5 %; Eosinophils # 0.8 K/mcL (0.0-0.6); Eosinophils % 8.8 %; Hematocrit 34.3 % (37.5-50.1); Hemoglobin 11.8 g/dL (12.9-16.9); Immature Granulocytes % 0.4 % (0-4); Lymphocytes # 1.9 K/mcL (0.6-4.6); Lymphocytes % 22.4 %; Mean Corpuscular HGB Conc 34.4 g/dL (31.6-35.5); Mean Corpuscular Volume 87.3 fL (83.0-100.0); Mean Platelet Volume 10.2 fL (9.4-12.4); Monocytes # 0.8 K/mcL (0.0-1.3); Monocytes % 9.1 %; Platelet Count 212 K/mcL (140-400); Red Blood Count 3.93 M/mcL (4.19-5.50); Red Cell Distribution Width 13.3 % (11.5-14.5); Segmented Neutrophils % 58.8 %; White Blood Count 8.5 K/mcL (4.3-11.1)
[2020-11-15 07:19] LABS: % Iron Saturation 11 % (20-55); Alanine Aminotransferase 34 Units/L (7-52); Albumin 3.3 g/dL (3.5-5.7); Albumin/Globulin Ratio 1.1 (1.1-2.2); Alkaline Phosphatase 47 Units/L (34-104); Aspartate Amino Transferase 96 Units/L (13-39); BUN/Creatinine Ratio 16 (6-26); Bilirubin,Total 0.6 mg/dL (0.3-1.0); Blood Urea Nitrogen 15 mg/dL (6-20); Calcium 8.3 mg/dL (8.6-10.3); Carbon Dioxide 26 mEq/L (23-29); Chloride 104 mEq/L (98-107); Glucose 101 mg/dL (70-105); Iron 34 mcg/dL (65-175); Osmolality,Calculated 287 (280-300); Phosphorous 3.1 mg/dL (2.7-4.5); Potassium 3.3 mEq/L (3.5-5.1); Sodium 138 mEq/L (136-145); Total Protein 6.3 g/dL (6.4-8.9); Transferrin 227 mg/dL (203-362); eGFR For African Americans > 60 (> 60); eGFR For Non-African Americans > 60 (> 60)
[2020-11-15 07:24] LABS: Ferritin 81 ng/mL (20-250)
[2020-11-15 07:29] LABS: Folate 9.7 ng/mL (3.0-16.0)
[2020-11-15] MEDS: Nicotine 14 MG PATCH.TD24 TD SCH (08:12)
[2020-11-15] MEDS: Gabapentin 400 MG CAPSULE PO SCH ×2 (08:13→20:23)
[2020-11-15] MEDS: Lactobacillus 1 EACH CAP.SPRINK PO SCH ×2 (08:13→20:23)
[2020-11-15] MEDS: Chlorhexidine Rinse 15 ML MOUTHWASH MM SCH ×2 (08:13→20:23)
[2020-11-15] MEDS: tiZANidine 4 MG TABLET PO PRN ×2 (08:20→20:23)
[2020-11-15] MEDS: Cyanocobalamin (B-12) 1,000 MCG TABLET PO SCH (08:20)
[2020-11-15] MEDS: Calcium Gluconate 1gm/50mL 1 GM/50 ML BAG IVPB SCH ×2 (08:20→09:35)
[2020-11-15] MEDS ORDERED: Cholecalciferol (D-3) 1,000 UNIT (25MCG) TABLET PO SCH (09:00)
[2020-11-15] MEDS ORDERED: Multivit/Ca/Min/Fe/FA 1 TAB TABLET PO SCH (09:00)
[2020-11-15] MEDS ORDERED: Iron Sucrose Complex 400 MG in 0.9 % Sodium Chloride 250 ML IVPB ONE (10:00)
[2020-11-15] MEDS: Vancomycin 1,500 MG/265 ML IV.SOLN IVPB SCH (11:57)
[2020-11-15] MEDS: Doxycycline 100 MG CAPSULE PO SCH (20:23)
[2020-11-15] MEDS: hydrOXYzine pamoate 25 MG CAPSULE PO PRN (20:23)
[2020-11-16] MEDS: *HR* OxyCODONE Immed Rel 5 MG TABLET PO PRN ×3 (04:56→17:59)
[2020-11-16] MEDS: *HR* Enoxaparin 40 MG/0.4 ML SYRINGE SQ SCH (05:12)
[2020-11-16 05:54] LABS: Basophils % 0.5 %; Eosinophils # 0.7 K/mcL (0.0-0.6); Eosinophils % 8.4 %; Hematocrit 36.6 % (37.5-50.1); Hemoglobin 12.4 g/dL (12.9-16.9); Immature Granulocytes % 0.4 % (0-4); Lymphocytes % 24.4 %; Mean Corpuscular HGB Conc 33.9 g/dL (31.6-35.5); Mean Corpuscular Hemoglobin 29.9 pg (28.0-33.3); Mean Corpuscular Volume 88.2 fL (83.0-100.0); Mean Platelet Volume 10.1 fL (9.4-12.4); Monocytes # 0.7 K/mcL (0.0-1.3); Monocytes % 8.9 %; Neutrophils # 4.7 K/mcL (1.6-8.9); Platelet Count 220 K/mcL (140-400); Red Blood Count 4.15 M/mcL (4.19-5.50); Red Cell Distribution Width 13.7 % (11.5-14.5); Segmented Neutrophils % 57.4 %; White Blood Count 8.2 K/mcL (4.3-11.1)
[2020-11-16 06:54] LABS: Alanine Aminotransferase 33 Units/L (7-52); Albumin 3.6 g/dL (3.5-5.7); Albumin/Globulin Ratio 1.1 (1.1-2.2); Alkaline Phosphatase 52 Units/L (34-104); Aspartate Amino Transferase 77 Units/L (13-39); BUN/Creatinine Ratio 12 (6-26); Bilirubin,Total 0.4 mg/dL (0.3-1.0); Blood Urea Nitrogen 11 mg/dL (6-20); Calcium 8.7 mg/dL (8.6-10.3); Carbon Dioxide 24 mEq/L (23-29); Chloride 103 mEq/L (98-107); Globulin 3.3 g/dL (2.4-3.5); Glucose 79 mg/dL (70-105); Magnesium 1.7 mg/dL (1.6-2.6); Osmolality,Calculated 284 (280-300); Phosphorous 4.3 mg/dL (2.7-4.5); Potassium 3.8 mEq/L (3.5-5.1); Sodium 138 mEq/L (136-145); Total Protein 6.9 g/dL (6.4-8.9); eGFR For African Americans > 60 (> 60); eGFR For Non-African Americans > 60 (> 60)
[2020-11-16] MEDS: Cholecalciferol (D-3) 1,000 UNIT (25MCG) TABLET PO SCH (07:23)
[2020-11-16] MEDS: Multivit/Ca/Min/Fe/FA 1 TAB TABLET PO SCH (07:23)
[2020-11-16] MEDS: Doxycycline 100 MG CAPSULE PO SCH ×2 (10:06→21:38)
[2020-11-16] MEDS: levoFLOXacin 750 MG TABLET PO SCH (10:06)
[2020-11-16] MEDS: Lactobacillus 1 EACH CAP.SPRINK PO SCH ×2 (10:06→21:38)
[2020-11-16] MEDS: Gabapentin 400 MG CAPSULE PO SCH ×2 (10:06→21:38)
[2020-11-16] MEDS: Nicotine 14 MG PATCH.TD24 TD SCH (10:07)
[2020-11-16] MEDS: Chlorhexidine Rinse 15 ML MOUTHWASH MM SCH ×2 (10:08→21:38)
[2020-11-16] MEDS: Cyanocobalamin (B-12) 1,000 MCG TABLET PO SCH (10:08)
[2020-11-16] MEDS: tiZANidine 4 MG TABLET PO PRN (12:46)
[2020-11-16] MEDS: hydrOXYzine pamoate 25 MG CAPSULE PO PRN ×2 (12:46→21:58)
[2020-11-16] MEDS: Melatonin 3 MG TABLET PO PRN (21:58)
[2020-11-17] MEDS: *HR* OxyCODONE Immed Rel 5 MG TABLET PO PRN ×3 (00:13→15:38)
[2020-11-17 03:33] LABS: Basophils % 0.2 %; Eosinophils # 0.8 K/mcL (0.0-0.6); Hematocrit 34.9 % (37.5-50.1); Hemoglobin 11.7 g/dL (12.9-16.9); Immature Granulocytes % 0.5 % (0-4); Mean Corpuscular HGB Conc 33.5 g/dL (31.6-35.5); Mean Corpuscular Hemoglobin 29.4 pg (28.0-33.3); Mean Corpuscular Volume 87.7 fL (83.0-100.0); Mean Platelet Volume 9.9 fL (9.4-12.4); Monocytes # 0.9 K/mcL (0.0-1.3); Monocytes % 9.8 %; Neutrophils # 5.8 K/mcL (1.6-8.9); Platelet Count 261 K/mcL (140-400); Red Blood Count 3.98 M/mcL (4.19-5.50); Red Cell Distribution Width 13.2 % (11.5-14.5); Segmented Neutrophils % 60.5 %; White Blood Count 9.5 K/mcL (4.3-11.1)
[2020-11-17 03:51] LABS: Alanine Aminotransferase 29 Units/L (7-52); Albumin 3.4 g/dL (3.5-5.7); Albumin/Globulin Ratio 1.1 (1.1-2.2); Alkaline Phosphatase 53 Units/L (34-104); Aspartate Amino Transferase 55 Units/L (13-39); BUN/Creatinine Ratio 13 (6-26); Bilirubin,Total 0.3 mg/dL (0.3-1.0); Blood Urea Nitrogen 12 mg/dL (6-20); Calcium 8.8 mg/dL (8.6-10.3); Carbon Dioxide 27 mEq/L (23-29); Chloride 104 mEq/L (98-107); Globulin 3.2 g/dL (2.4-3.5); Glucose 129 mg/dL (70-105); Magnesium 1.7 mg/dL (1.6-2.6); Osmolality,Calculated 287 (280-300); Phosphorous 4.6 mg/dL (2.7-4.5); Potassium 3.7 mEq/L (3.5-5.1); Sodium 138 mEq/L (136-145); Total Protein 6.6 g/dL (6.4-8.9); eGFR For African Americans > 60 (> 60); eGFR For Non-African Americans > 60 (> 60)
[2020-11-17] MEDS: *HR* Enoxaparin 40 MG/0.4 ML SYRINGE SQ SCH (06:20)
[2020-11-17] MEDS: levoFLOXacin 750 MG TABLET PO SCH (08:35)
[2020-11-17] MEDS: Gabapentin 400 MG CAPSULE PO SCH ×2 (08:35→19:58)
[2020-11-17] MEDS: Cholecalciferol (D-3) 1,000 UNIT (25MCG) TABLET PO SCH (08:35)
[2020-11-17] MEDS: Cyanocobalamin (B-12) 1,000 MCG TABLET PO SCH (08:35)
[2020-11-17] MEDS: Multivit/Ca/Min/Fe/FA 1 TAB TABLET PO SCH (08:35)
[2020-11-17] MEDS: Doxycycline 100 MG CAPSULE PO SCH ×2 (08:35→19:58)
[2020-11-17] MEDS: Lactobacillus 1 EACH CAP.SPRINK PO SCH ×2 (08:35→19:58)
[2020-11-17] MEDS: Chlorhexidine Rinse 15 ML MOUTHWASH MM SCH ×2 (08:35→19:58)
[2020-11-17] MEDS: Nicotine 14 MG PATCH.TD24 TD SCH (08:36)
[2020-11-17] MEDS ORDERED: *HR* OxyCODONE/APAP 5/325 TABLET PO PRN (12:23)
[2020-11-17] MEDS: Melatonin 3 MG TABLET PO PRN (19:58)
[2020-11-17] MEDS: hydrOXYzine pamoate 25 MG CAPSULE PO PRN (20:02)
[2020-11-18] MEDS: *HR* OxyCODONE Immed Rel 5 MG TABLET PO PRN ×3 (02:19→18:30)
[2020-11-18] MEDS: *HR* Enoxaparin 40 MG/0.4 ML SYRINGE SQ SCH (05:19)
[2020-11-18] MEDS: Cyanocobalamin (B-12) 1,000 MCG TABLET PO SCH (08:07)
[2020-11-18] MEDS: Cholecalciferol (D-3) 1,000 UNIT (25MCG) TABLET PO SCH (08:07)
[2020-11-18] MEDS: Gabapentin 400 MG CAPSULE PO SCH ×2 (08:07→21:44)
[2020-11-18] MEDS: Lactobacillus 1 EACH CAP.SPRINK PO SCH ×2 (08:07→21:44)
[2020-11-18] MEDS: levoFLOXacin 750 MG TABLET PO SCH (08:07)
[2020-11-18] MEDS: Doxycycline 100 MG CAPSULE PO SCH ×2 (08:08→21:44)
[2020-11-18] MEDS: Nicotine 14 MG PATCH.TD24 TD SCH (08:08)
[2020-11-18] MEDS: Multivit/Ca/Min/Fe/FA 1 TAB TABLET PO SCH (08:08)
[2020-11-18] MEDS: Chlorhexidine Rinse 15 ML MOUTHWASH MM SCH ×2 (08:09→21:44)
[2020-11-18] MEDS: hydrOXYzine pamoate 25 MG CAPSULE PO PRN ×2 (08:13→21:44)
[2020-11-18] MEDS: tiZANidine 4 MG TABLET PO PRN ×2 (10:29→18:34)
[2020-11-18] MEDS: Melatonin 3 MG TABLET PO PRN (21:44)
[2020-11-19] MEDS: tiZANidine 4 MG TABLET PO PRN ×3 (03:26→21:55)
[2020-11-19] MEDS: *HR* OxyCODONE Immed Rel 5 MG TABLET PO PRN ×3 (03:26→19:52)
[2020-11-19] MEDS: *HR* Enoxaparin 40 MG/0.4 ML SYRINGE SQ SCH (04:10)
[2020-11-19] MEDS: Chlorhexidine Rinse 15 ML MOUTHWASH MM SCH ×2 (08:38→19:51)
[2020-11-19] MEDS: Lactobacillus 1 EACH CAP.SPRINK PO SCH ×2 (08:38→19:51)
[2020-11-19] MEDS: Cyanocobalamin (B-12) 1,000 MCG TABLET PO SCH (08:38)
[2020-11-19] MEDS: Multivit/Ca/Min/Fe/FA 1 TAB TABLET PO SCH (08:38)
[2020-11-19] MEDS: Cholecalciferol (D-3) 1,000 UNIT (25MCG) TABLET PO SCH (08:38)
[2020-11-19] MEDS: levoFLOXacin 750 MG TABLET PO SCH (08:38)
[2020-11-19] MEDS: Gabapentin 400 MG CAPSULE PO SCH ×3 (08:39→19:52)
[2020-11-19] MEDS: Doxycycline 100 MG CAPSULE PO SCH ×2 (08:39→19:52)
[2020-11-19] MEDS: hydrOXYzine pamoate 25 MG CAPSULE PO PRN ×2 (08:39→21:53)
[2020-11-19] MEDS: Nicotine 14 MG PATCH.TD24 TD SCH (08:39)
[2020-11-20] MEDS: Melatonin 3 MG TABLET PO PRN (00:25)
[2020-11-20] MEDS: *HR* OxyCODONE Immed Rel 5 MG TABLET PO PRN ×3 (04:23→19:12)
[2020-11-20] MEDS: *HR* Enoxaparin 40 MG/0.4 ML SYRINGE SQ SCH (05:09)
[2020-11-20 08:09] LABS: BUN/Creatinine Ratio 16 (6-26); Blood Urea Nitrogen 18 mg/dL (6-20); Calcium 9.5 mg/dL (8.6-10.3); Carbon Dioxide 24 mEq/L (23-29); Chloride 104 mEq/L (98-107); Glucose 104 mg/dL (70-105); Osmolality,Calculated 284 (280-300); Potassium 4.5 mEq/L (3.5-5.1); Sodium 136 mEq/L (136-145); eGFR For African Americans > 60 (> 60); eGFR For Non-African Americans > 60 (> 60)
[2020-11-20] MEDS: Multivit/Ca/Min/Fe/FA 1 TAB TABLET PO SCH (12:39)
[2020-11-20] MEDS: Cholecalciferol (D-3) 1,000 UNIT (25MCG) TABLET PO SCH (12:40)
[2020-11-20] MEDS: Nicotine 14 MG PATCH.TD24 TD SCH (12:40)
[2020-11-20] MEDS: Lactobacillus 1 EACH CAP.SPRINK PO SCH ×2 (12:41→19:56)
[2020-11-20] MEDS: Doxycycline 100 MG CAPSULE PO SCH ×2 (12:41→19:56)
[2020-11-20] MEDS: Chlorhexidine Rinse 15 ML MOUTHWASH MM SCH ×2 (12:41→19:56)
[2020-11-20] MEDS: levoFLOXacin 750 MG TABLET PO SCH (12:41)
[2020-11-20] MEDS: Cyanocobalamin (B-12) 1,000 MCG TABLET PO SCH (12:41)
[2020-11-20] MEDS: Gabapentin 400 MG CAPSULE PO SCH ×2 (12:41→13:56)
[2020-11-20] MEDS: tiZANidine 4 MG TABLET PO PRN (12:42)
[2020-11-20] MEDS: hydrOXYzine pamoate 25 MG CAPSULE PO PRN (12:42)
[2020-11-20 14:26] LABS: Hematocrit 44.7 % (37.5-50.1); Hemoglobin 15.3 g/dL (12.9-16.9); Mean Corpuscular HGB Conc 34.2 g/dL (31.6-35.5); Mean Corpuscular Hemoglobin 29.7 pg (28.0-33.3); Mean Corpuscular Volume 86.6 fL (83.0-100.0); Mean Platelet Volume 9.1 fL (9.4-12.4); Platelet Count 444 K/mcL (140-400); Red Blood Count 5.16 M/mcL (4.19-5.50); Red Cell Distribution Width 13.7 % (11.5-14.5); White Blood Count 10.7 K/mcL (4.3-11.1)
[2020-11-20] MEDS ORDERED: *HR* OxyCODONE Immed Rel 5 MG TABLET PO PRN ×2 (16:58)
[2020-11-20] MEDS: Gabapentin 300 MG CAPSULE PO SCH (19:56)
[2020-11-20] MEDS: tiZANidine 4 MG TABLET PO SCH (19:57)
[2020-11-21] MEDS: Melatonin 3 MG TABLET PO PRN ×2 (00:38→20:02)
[2020-11-21] MEDS: hydrOXYzine pamoate 25 MG CAPSULE PO PRN ×2 (00:39→20:02)
[2020-11-21] MEDS: *HR* OxyCODONE Immed Rel 5 MG TABLET PO PRN ×4 (01:18→20:02)
[2020-11-21] MEDS: *HR* Enoxaparin 40 MG/0.4 ML SYRINGE SQ SCH (05:26)
[2020-11-21] MEDS: Chlorhexidine Rinse 15 ML MOUTHWASH MM SCH ×2 (07:51→20:02)
[2020-11-21] MEDS: Cholecalciferol (D-3) 1,000 UNIT (25MCG) TABLET PO SCH (07:52)
[2020-11-21] MEDS: levoFLOXacin 750 MG TABLET PO SCH (07:52)
[2020-11-21] MEDS: Lactobacillus 1 EACH CAP.SPRINK PO SCH ×2 (07:52→20:02)
[2020-11-21] MEDS: Gabapentin 300 MG CAPSULE PO SCH ×3 (07:52→20:02)
[2020-11-21] MEDS: tiZANidine 4 MG TABLET PO SCH ×3 (07:52→20:02)
[2020-11-21] MEDS: Multivit/Ca/Min/Fe/FA 1 TAB TABLET PO SCH (07:52)
[2020-11-21] MEDS: Cyanocobalamin (B-12) 1,000 MCG TABLET PO SCH (07:53)
[2020-11-21] MEDS: Nicotine 14 MG PATCH.TD24 TD SCH (07:53)
[2020-11-21] MEDS: Doxycycline 100 MG CAPSULE PO SCH ×2 (07:53→20:02)
[2020-11-22] MEDS: *HR* OxyCODONE Immed Rel 5 MG TABLET PO PRN ×4 (02:26→21:00)
[2020-11-22] MEDS: *HR* Enoxaparin 40 MG/0.4 ML SYRINGE SQ SCH (04:23)
[2020-11-22] MEDS: Doxycycline 100 MG CAPSULE PO SCH ×2 (08:32→21:00)
[2020-11-22] MEDS: levoFLOXacin 750 MG TABLET PO SCH (08:32)
[2020-11-22] MEDS: Cholecalciferol (D-3) 1,000 UNIT (25MCG) TABLET PO SCH (08:32)
[2020-11-22] MEDS: Cyanocobalamin (B-12) 1,000 MCG TABLET PO SCH (08:32)
[2020-11-22] MEDS: Lactobacillus 1 EACH CAP.SPRINK PO SCH ×2 (08:33→21:00)
[2020-11-22] MEDS: Gabapentin 300 MG CAPSULE PO SCH ×3 (08:33→21:00)
[2020-11-22] MEDS: Multivit/Ca/Min/Fe/FA 1 TAB TABLET PO SCH (08:33)
[2020-11-22] MEDS: Chlorhexidine Rinse 15 ML MOUTHWASH MM SCH ×2 (08:33→21:00)
[2020-11-22] MEDS: tiZANidine 4 MG TABLET PO SCH ×3 (08:33→21:00)
[2020-11-22] MEDS: Nicotine 14 MG PATCH.TD24 TD SCH (08:33)
[2020-11-22] MEDS: hydrOXYzine pamoate 25 MG CAPSULE PO PRN ×2 (08:57→21:08)
[2020-11-23] MEDS: *HR* OxyCODONE Immed Rel 5 MG TABLET PO PRN ×4 (03:24→22:25)
[2020-11-23] MEDS: *HR* Enoxaparin 40 MG/0.4 ML SYRINGE SQ SCH (06:20)
[2020-11-23] MEDS: levoFLOXacin 750 MG TABLET PO SCH (08:04)
[2020-11-23] MEDS: Chlorhexidine Rinse 15 ML MOUTHWASH MM SCH ×2 (08:04→20:36)
[2020-11-23] MEDS: Lactobacillus 1 EACH CAP.SPRINK PO SCH ×2 (08:04→20:36)
[2020-11-23] MEDS: Doxycycline 100 MG CAPSULE PO SCH ×2 (08:04→20:37)
[2020-11-23] MEDS: Multivit/Ca/Min/Fe/FA 1 TAB TABLET PO SCH (08:04)
[2020-11-23] MEDS: Gabapentin 300 MG CAPSULE PO SCH ×3 (08:04→20:37)
[2020-11-23] MEDS: Cyanocobalamin (B-12) 1,000 MCG TABLET PO SCH (08:04)
[2020-11-23] MEDS: Cholecalciferol (D-3) 1,000 UNIT (25MCG) TABLET PO SCH (08:04)
[2020-11-23] MEDS: Nicotine 14 MG PATCH.TD24 TD SCH (08:04)
[2020-11-23] MEDS: hydrOXYzine pamoate 25 MG CAPSULE PO PRN ×2 (08:14→20:36)
[2020-11-23] MEDS: tiZANidine 4 MG TABLET PO SCH ×3 (08:15→20:36)
[2020-11-23] MEDS: Melatonin 3 MG TABLET PO PRN (22:25)
[2020-11-24] MEDS: *HR* OxyCODONE Immed Rel 5 MG TABLET PO PRN ×2 (05:35→11:58)
[2020-11-24] MEDS: *HR* Enoxaparin 40 MG/0.4 ML SYRINGE SQ SCH (05:35)
[2020-11-24] MEDS: Doxycycline 100 MG CAPSULE PO SCH (09:07)
[2020-11-24] MEDS: Gabapentin 300 MG CAPSULE PO SCH ×2 (09:07→15:47)
[2020-11-24] MEDS: Multivit/Ca/Min/Fe/FA 1 TAB TABLET PO SCH (09:08)
[2020-11-24] MEDS: levoFLOXacin 750 MG TABLET PO SCH (09:08)
[2020-11-24] MEDS: Lactobacillus 1 EACH CAP.SPRINK PO SCH (09:08)
[2020-11-24] MEDS: tiZANidine 4 MG TABLET PO SCH ×2 (09:08→15:47)
[2020-11-24] MEDS: Cholecalciferol (D-3) 1,000 UNIT (25MCG) TABLET PO SCH (09:08)
[2020-11-24] MEDS: Cyanocobalamin (B-12) 1,000 MCG TABLET PO SCH (09:09)
[2020-11-24] MEDS: Chlorhexidine Rinse 15 ML MOUTHWASH MM SCH (09:09)
[2020-11-24] MEDS: Nicotine 14 MG PATCH.TD24 TD SCH (09:10)
[2020-11-24 11:21] VITALS: O2SAT 95
[2020-11-24] MEDS: hydrOXYzine pamoate 25 MG CAPSULE PO PRN (11:58)
[2020-11-24 14:10] LABS: Adenovirus Not Detected (Not Detect); Bordetella Pertussis Not Detected (Not Detect); Chlamydophila pneumoniae Not Detected (Not Detect); Coronavirus 229E Not Detected (Not Detect); Coronavirus HKU1 Not Detected (Not Detect); Coronavirus NL63 Not Detected (Not Detect); Coronavirus OC43 Not Detected (Not Detect); Human Metapneumovirus Not Detected (Not Detect); Human Rhinovirus/Enterovirus Not Detected (Not Detect); Influenza A Subtype 2009 H1 Not Detected (Not Detect); Influenza B Not Detected (Not Detect); Mycoplasma pneumoniae Not Detected (Not Detect); Parainfluenza Virus 1 Not Detected (Not Detect); Parainfluenza Virus 2 Not Detected (Not Detect); Parainfluenza Virus 3 Not Detected (Not Detect); Parainfluenza Virus 4 Not Detected (Not Detect); Respiratory Syncytial Virus Not Detected (Not Detect); SARS-CoV-2 Not Detected (Not Detect)
[2020-11-24 15:41] VITALS: BP 158/77; PULSE 91; TEMP 98.2
== END 2020-11-24 17:03 ==
LOC: 3BNU 14:53 → EMEROOARM 14:53 → SUATTDRO 11-14 06:58 → 3BNU 11-14 07:56
PROVIDERS: ADMIT Student in an Organized Health Care Education/Training Program; ATTEND Nurse Practitioner